=== PATIENT | female | born 1975 | race Caucasian/White ===

== ENCOUNTER 2020-07-26 10:16 | Outpatient (REF) | payer BC, SELFPAY ==
[2020-07-26 11:45] LABS: MANUAL DIFF FLAG NO
[2020-07-26 11:59] LABS: Basophils Percent Auto 0.5 % (0-2); Eosinophils Absolute Auto 0.3 X10*3/uL (0.0-0.4); Eosinophils Percent Auto 3.5 % (0-4); Hematocrit 43.3 % (37-47); Hemoglobin 14.3 g/dl (12.0-16.0); Imm Gran Abs Auto 0.04 X10*3/uL (0.00-0.03); Imm Gran Pct Auto 0.5 % (0.0-0.4); Lymphocytes Absolute Auto 2.2 X10*3/uL (1.2-4.9); Lymphocytes Percent Auto 28.4 % (20-40); Mean Corpuscular Hemoglobin 32.6 pg (27.0-33.0); Mean Corpuscular Volume 98.6 fL (80-98); Mean Platelet Volume 10.4 fL (9.4-12.3); Monocytes Absolute Auto 0.6 X10*3/uL (0.1-1.2); Neutrophils Absolute Auto 4.7 X10*3/uL (2.0-8.3); Neutrophils Percent Auto 60.1 % (45-73); Platelet Count 279 X10*3/uL (160-400); Red Blood Count 4.39 X10*6/uL (4.20-5.50); Red Cell Distribution Width 11.9 % (11.0-16.0); White Blood Count 7.8 X10*3/uL (4.8-10.8)
[2020-07-26 12:20] LABS: Alanine Aminotransferase 21 U/L (0-31); Albumin Level 4.7 g/dL (3.5-5.0); Alkaline Phosphatase 92 U/L (39-117); Aspartate Amino Transferase 17 U/L (5-31); Bilirubin Direct 0.2 mg/dL (0.0-0.5); Bilirubin Total 0.4 mg/dL (0.0-1.0); Cholesterol 194 mg/dL; HDL Cholesterol 71 mg/dL; LDL Cholesterol Calculated 110 mg/dl; Total Protein 7.3 g/dL (6.5-8.0); Triglycerides 66 mg/dL
[2020-07-26 12:45] LABS: Microalbumin Urine < 5.0 mg/L
[2020-07-26 12:46] LABS: Thyroid Stimulating Hormone 0.48 uIU/mL (0.32-4.0); Vitamin D 25-OH Total 39.3 ng/mL (>30)
[2020-07-26 13:19] LABS: Folate 14.4 ng/mL (> or = 4.0); Vitamin B12 950 pg/mL (200-900)
[2020-07-26 14:24] LABS: T4 Thyroxine 5.1 ug/dL (4.5-12.0)
== END 2020-07-26 10:17 | disposition home or self-care (01) ==
LOC: HO.LAB 10:16
PROVIDERS: PCP Internal Medicine; Visit Provider Internal Medicine
DX: E78.5 Hyperlipidemia, unspecified (principal); E10.65 Type 1 diabetes mellitus with hyperglycemia; E03.9 Hypothyroidism, unspecified; F43.10 Post-traumatic stress disorder, unspecified; G43.909 Migraine, unspecified, not intractable, without status migrainosus
CPT/HCPCS: 36415; 80061; 80076; 82043; 82306; 82607; 82746; 84436; 84443; 85025

== ENCOUNTER 2020-09-27 09:50 | Outpatient (REF) | payer OTHER, SELFPAY | END 2020-09-27 09:51 | disposition home or self-care (01) | LOC: HO.LAB 09:50 | PROVIDERS: Visit Provider Internal Medicine | DX: Z20.822 Contact with and (suspected) exposure to COVID-19 (principal) | CPT/HCPCS: 36415; C9803; U0003; U0005 ==

== ENCOUNTER 2020-12-27 09:52 | Outpatient (REF) | payer OTHER, SELFPAY ==
--- NOTE | ~2020-12-27 | MM_ITS ---
EXAMINATION: MM SCREENING DIGITAL BREAST TOMOSYNTHESIS, BILATERAL CLINICAL INFORMATION: Screening. Asymptomatic. Benign ultrasound-guided left breast biopsy 06/29/2017 (Benign breast tissue with fibrosis and patchy [id number]-[id number] active chronic inflammation). The lifetime risk of breast cancer based on the Tyrer-Cuzick Model is 8%. COMPARISON: Mammography: 06/29/2017, 06/19/2017, 10/17/2015, baseline. Ultrasound left breast 06/19/2017, ultrasound-guided biopsy left breast 06/29/2017. TECHNIQUE: Digital breast tomosynthesis is performed in both the craniocaudal and mediolateral oblique views along with computer-aided detection (CAD). Synthesized 2D images are generated from the tomosynthesis. FINDINGS: The breasts are heterogeneously dense, which may obscure small masses (ACR BI-RADS breast composition Category c). There are no significant masses, abnormal calcifications, or other abnormalities. Benign grouped coarse calcifications posterior 12:00 left breast consistent with degenerating fibroadenoma again noted as incidental finding. There is biopsy clip marker anterior upper outer left breast. No significant changes. MM/MM tomosynthesis screening BI IMPRESSION: No mammographic evidence of malignancy. ASSESSMENT: BI-RADS 2: Benign RECOMMENDATION: Routine annual mammography screening. This patient's information was entered into a reminder system with a target due date for their next mammogram.
== END 2020-12-27 09:53 | disposition home or self-care (01) ==
LOC: HO.MAMMO 09:52
PROVIDERS: Visit Provider Internal Medicine
DX: Z12.31 Encounter for screening mammogram for malignant neoplasm of breast (principal)
CPT/HCPCS: 77063; 77067

== ENCOUNTER 2021-06-27 13:03 | Outpatient (REF) | payer OTHER, SELFPAY ==
[2021-06-27 13:15] LABS: MANUAL DIFF FLAG NO
[2021-06-27 13:35] LABS: Basophils Absolute Auto 0.1 X10*3/uL (0.0-0.2); Basophils Percent Auto 0.7 % (0-2); Eosinophils Absolute Auto 0.3 X10*3/uL (0.0-0.4); Eosinophils Percent Auto 3.3 % (0-4); Hematocrit 40.5 % (37.0-47.0); Hemoglobin 14.3 g/dl (12.0-16.0); Imm Gran Abs Auto 0.05 X10*3/uL (0.00-0.03); Imm Gran Pct Auto 0.6 % (0.0-0.4); Lymphocytes Absolute Auto 1.8 X10*3/uL (1.2-4.9); Lymphocytes Percent Auto 20.9 % (20-40); Mean Corpuscular HGB Conc 35.3 g/dl (31.0-35.0); Mean Corpuscular Hemoglobin 33.6 pg (27.0-33.0); Mean Corpuscular Volume 95.3 fL (80.0-98.0); Mean Platelet Volume 9.7 fL (9.4-12.3); Monocytes Absolute Auto 0.6 X10*3/uL (0.1-1.2); Monocytes Percent Auto 6.9 % (2-11); Neutrophils Absolute Auto 5.81 x10*3/uL (2.0-8.3); Neutrophils Percent Auto 67.6 % (45-73); Platelet Count 320 X10*3/uL (160-400); Red Blood Count 4.25 X10*6/uL (4.20-5.50); Red Cell Distribution Width 12.5 % (11.0-16.0); White Blood Count 8.6 X10*3/uL (4.8-10.8)
[2021-06-27 14:08] LABS: Alanine Aminotransferase 23 U/L (0-31); Albumin Level 4.6 g/dL (3.5-5.0); Alkaline Phosphatase 128 U/L (39-117); Anion Gap 13 (12-20); Aspartate Amino Transferase 19 U/L (5-31); Bilirubin Total 0.6 mg/dL (0.0-1.0); Blood Urea Nitrogen 16 mg/dL (9-16); Calcium 9.3 mg/dL (8.4-10.2); Carbon Dioxide 26 mmol/L (22-29); Chloride 107 mmol/L (96-108); Cholesterol 159 mg/dL; Estimated Glomerular Filt Rate > 60; Glucose Random 46 mg/dL (60-115); HDL Cholesterol 67 mg/dL; LDL Cholesterol Calculated 73 mg/dl; Potassium 4.1 mmol/L (3.3-5.1); Sodium 142 mmol/L (135-145); Total Protein 7.2 g/dL (6.5-8.0); Triglycerides 95 mg/dL
[2021-06-27 14:28] LABS: Free T4 (Free Thyroxine) 0.92 ng/dL (0.71-1.85); Thyroid Stimulating Hormone 0.36 uIU/mL (0.32-4.0)
[2021-06-27 14:31] LABS: Folate 19.8 ng/mL (> or = 4.0); Vitamin B12 984 pg/mL (200-900)
== END 2021-06-27 13:04 | disposition home or self-care (01) ==
LOC: HO.LAB 13:03
PROVIDERS: PCP Internal Medicine; Visit Provider Internal Medicine
DX: E10.65 Type 1 diabetes mellitus with hyperglycemia (principal); E78.00 Pure hypercholesterolemia, unspecified; E66.9 Obesity, unspecified
CPT/HCPCS: 36415; 80053; 80061; 82306; 82607; 82746; 84439; 84443; 85025

== ENCOUNTER → 2021-08-01 14:48 | Outpatient (BNVA) | payer OTHER, SELFPAY | PROVIDERS: PCP Internal Medicine; Referring Provider Internal Medicine; Visit Provider Physician Assistant Surgical ==

== ENCOUNTER → 2021-08-26 07:56 | Outpatient (BNVA) | payer OTHER, SELFPAY | PROVIDERS: PCP Internal Medicine; Visit Provider Surgery ==

== ENCOUNTER → 2021-08-28 15:18 | Outpatient (BNVA) | payer OTHER, SELFPAY | PROVIDERS: PCP Internal Medicine; Referring Provider Internal Medicine; Visit Provider Physician Assistant Surgical ==

== ENCOUNTER 2021-08-28 15:30 | Outpatient (REF) | payer OTHER, SELFPAY ==
--- NOTE | ~2021-08-28 | XR_ITS ---
EXAMINATION: XR CHEST CLINICAL INFORMATION: Hypothyroidism COMPARISON: 08/13/2016 TECHNIQUE: 2 views of the chest were obtained. FINDINGS: Cardiomediastinal silhouette is normal. The lungs are clear without consolidation, pleural effusion or pneumothorax. No acute osseous abnormalities. XR/XR chest 2V IMPRESSION: No acute cardiopulmonary process.
--- NOTE | 2021-08-28 15:37 | ECG_ITS ---
Test Reason : obesity Blood Pressure : / mmHG Vent. Rate : 060 BPM Atrial Rate : 060 BPM P-R Int : 174 ms QRS Dur : 090 ms QT Int : 392 ms P-R-T Axes : 052 011 027 degrees QTc Int : 392 ms Normal sinus rhythm Normal ECG When compared with ECG of 07-AUG-2011 15:31, No significant change was found Referred By: Rubén Sexton Electronically Signed By:JT CHOI MD
[2021-08-28 15:54] LABS: MANUAL DIFF FLAG NO
[2021-08-28 16:14] LABS: Basophils Absolute Auto 0.1 X10*3/uL (0.0-0.2); Basophils Percent Auto 0.8 % (0-2); Eosinophils Absolute Auto 0.4 X10*3/uL (0.0-0.4); Hemoglobin 13.4 g/dl (12.0-16.0); Imm Gran Abs Auto 0.02 X10*3/uL (0.00-0.03); Imm Gran Pct Auto 0.3 % (0.0-0.4); Lymphocytes Absolute Auto 1.7 X10*3/uL (1.2-4.9); Lymphocytes Percent Auto 26.7 % (20-40); Mean Corpuscular HGB Conc 35.3 g/dl (31.0-35.0); Mean Corpuscular Hemoglobin 33.5 pg (27.0-33.0); Mean Platelet Volume 10.1 fL (9.4-12.3); Monocytes Absolute Auto 0.4 X10*3/uL (0.1-1.2); Monocytes Percent Auto 6.1 % (2-11); Neutrophils Absolute Auto 3.8 x10*3/uL (2.0-8.3); Neutrophils Percent Auto 60.1 % (45-73); Platelet Count 242 X10*3/uL (160-400); Red Cell Distribution Width 11.9 % (11.0-16.0); White Blood Count 6.4 X10*3/uL (4.8-10.8)
[2021-08-28 16:30] LABS: Alanine Aminotransferase 29 U/L (0-31); Albumin Level 4.4 g/dL (3.5-5.0); Alkaline Phosphatase 107 U/L (39-117); Anion Gap 10 (12-20); Aspartate Amino Transferase 21 U/L (5-31); Bilirubin Total 0.4 mg/dL (0.0-1.0); Blood Urea Nitrogen 17 mg/dL (9-16); C Reactive Protein 0.46 mg/dL (< or = 0.50); Carbon Dioxide 25 mmol/L (22-29); Chloride 109 mmol/L (96-108); Cholesterol 181 mg/dL; Estimated Glomerular Filt Rate 60; Glucose Random 118 mg/dL (60-115); HDL Cholesterol 72 mg/dL; Iron 91 mcg/dL (30-160); LDL Cholesterol Calculated 97 mg/dl; Percent Iron Saturation 35 % (15-50); Potassium 3.8 mmol/L (3.3-5.1); Sodium 140 mmol/L (135-145); Total Iron Binding Capacity 258 mcg/dL (228-428); Total Protein 6.6 g/dL (6.5-8.0); Triglycerides 63 mg/dL; Unsaturated Iron Binding 167 ug/dL
[2021-08-28 16:45] LABS: Estimated Average Glucose 148 mg/dL; Hemoglobin A1c % 6.8 %
[2021-08-28 16:54] LABS: Ferritin 69 ng/mL (10-250); TSH reflex Free T4 24.43 uIU/mL (0.32-4.0); Vitamin D 25-OH Total 42.1 ng/mL (>30)
[2021-08-28 17:01] LABS: Folate > 20.0 ng/mL (> or = 4.0); Vitamin B12 875 pg/mL (200-900)
[2021-08-28 18:31] LABS: Insulin 18 uU/mL (2-29)
[2021-08-29 12:26] LABS: Calcium (PTHI) 8.8 mg/dL (8.6-10.2); PTHI 43 pg/mL (14-64)
[2021-08-29 15:34] LABS: H Pylori Breath Test Negative (Negative)
[2021-09-01 16:52] LABS: Zinc 93 mcg/dL (60-130)
[2021-09-02 05:52] LABS: Vitamin B1 17 nmol/L (8-30)
[2021-09-03 10:22] LABS: Vitamin A 64 mcg/dL (38-98)
== END 2021-08-28 15:31 | disposition home or self-care (01) ==
LOC: HO.XRAY 15:30
PROVIDERS: PCP Internal Medicine; Visit Provider Surgery
DX: E03.9 Hypothyroidism, unspecified (principal); E10.65 Type 1 diabetes mellitus with hyperglycemia; E66.9 Obesity, unspecified; Z68.35 Body mass index [BMI] 35.0-35.9, adult; E78.00 Pure hypercholesterolemia, unspecified; F43.10 Post-traumatic stress disorder, unspecified; K42.9 Umbilical hernia without obstruction or gangrene
CPT/HCPCS: 36415; 71046; 80053; 80061; 82306; 82607; 82728; 82746; 83013; 83036; 83525; 83540; 83970; 84425; 84439; 84443; 84590; 84630; 85025; 86140; 93005

== ENCOUNTER → 2021-09-25 08:09 | Outpatient (BNVA) | payer OTHER, SELFPAY | PROVIDERS: PCP Internal Medicine; Visit Provider Surgery ==

== ENCOUNTER → 2021-09-27 08:00 | Outpatient (BNVA) | payer OTHER, SELFPAY | PROVIDERS: PCP Internal Medicine; Visit Provider Dietitian, Registered | DX: E66.9 Obesity, unspecified (principal); E10.65 Type 1 diabetes mellitus with hyperglycemia | CPT/HCPCS: 97802 ==

== ENCOUNTER 2021-10-16 08:08 | Outpatient (REF) | payer OTHER, SELFPAY ==
--- NOTE | ~2021-10-16 | US_ITS ---
EXAMINATION: US COMPLETE ABDOMEN WITH LIVER ELASTOGRAPHY CLINICAL INFORMATION: Obesity COMPARISON: None. TECHNIQUE: Real-time imaging of the abdominal viscera. Noninvasive ultrasound liver fibrosis assessment is performed using Trudy ElastPQ point quantification shear wave elastography (2D-SWE) with a C5-2 MHz transducer. Multiple elastography samples are obtained. FINDINGS: PANCREAS: Normal. ABDOMINAL AORTA: The proximal, middle, and distal aortic segments are normal in caliber. INFERIOR VENA CAVA: Visualized portions are normal. LIVER: Liver echotexture is slightly increased. The liver demonstrates normal size and contour. No focal lesion or intrahepatic biliary duct dilatation. The right lobe measures 17 cm in length. The left lobe measures 11 cm in length. Portal flow is normal/hepatopedal. Shear wave liver elastography median stiffness is 1.3 m/s (reference: normal median stiffness is 1.3 m/s or less). IQR/median stiffness to assess sampling precision is 0.11 (reference: good quality data set is IQR/median stiffness of 0.15 or less). GALLBLADDER: Normal. The gallbladder is physiologically distended without evidence of stones, sludge, polyps, wall thickening or pericholecystic fluid. COMMON BILE DUCT: Normal in caliber measuring 0.6 cm in diameter. RIGHT KIDNEY: Normal. No hydronephrosis. No renal calculi or focal parenchymal lesions. The kidney measures 11 cm in maximum dimension. LEFT KIDNEY: Normal. No hydronephrosis. No renal calculi or focal parenchymal lesions. The kidney measures 10 cm in maximum dimension. SPLEEN: Normal. The spleen measures 11 cm in maximum dimension. FREE FLUID: None. US/US abdomen comp w elastography IMPRESSION: 1. Impression: Slightly echogenic liver probably representing fatty infiltration. 2. Liver elastography: Adequate liver sampling. Normal liver stiffness. REFERENCE: Society of Radiologists in Ultrasound Liver Stiffness Thresholds (2020): LIVER STIFFNESS THRESHOLDS: *Liver Stiffness equal or less than 1.3 m/s: High probability of being normal. *Liver Stiffness less than 1.7 m/s: In the absence of other known clinical signs, rules out compensated advanced chronic liver disease. *Liver Stiffness 1.7-2.1 m/s: Suggestive of compensated advanced chronic liver disease but need further test for confirmation. *Liver Stiffness over 2.1 m/s: Rules in compensated advanced chronic liver disease. *Liver Stiffness over 2.4 m/s: Suggestive of clinically significant portal hypertension. QUALITY OF DATA SET: *IQR/Median value equal or less than 0.15 implies a quality data set. *IQR/Median value over 0.15 implies a poor quality data set. SIGNIFICANT CHANGE FROM PRIOR EXAM: Significant change if liver stiffness measurement is 10% or greater from prior exam. OTHER CONSIDERATIONS: The stage of liver fibrosis may be overestimated in the setting of acute hepatitis, liver inflammation, elevated liver function tests, hepatic vascular congestion, obstructive cholestasis, non-fasting state, and infiltrative diseases such as amyloidosis and lymphoma. In some patients with NAFLD, the liver stiffness thresholds for compensated advanced chronic liver disease may be lower. In causes other than viral hepatitis and NAFLD, liver stiffness thresholds are not well established.
--- NOTE | ~2021-10-16 | FL_ITS ---
EXAMINATION: FL FLUOROSCOPY UPPER GI WITH AIR CLINICAL INFORMATION: Hypothyroidism. COMPARISON: None TECHNIQUE: Routine upper GI air-contrast study was performed. FINDINGS: Following oral administration of thick barium and effervescent granules, there is normal propagation of the bolus from the oral cavity through the pharynx, esophagus into the stomach without any evidence of obstruction, narrowing or stricture. On placing the patient supine and prone, the course, caliber and peristalsis of the stomach, duodenal bulb and the sweep are normal. The mucosal pattern of the stomach and the duodenal bulb is normal. FLUOROSCOPY TIME: 1.8 minutes DOSE AREA PRODUCT: 28.624 uGy-m2 (microgray-meter squared) FL/FL upper GI w air IMPRESSION: Unremarkable upper GI air-contrast study.
== END 2021-10-16 08:09 | disposition home or self-care (01) ==
LOC: HO.US 08:08
PROVIDERS: PCP Internal Medicine; Visit Provider Surgery
DX: E03.9 Hypothyroidism, unspecified (principal); E10.65 Type 1 diabetes mellitus with hyperglycemia; E78.00 Pure hypercholesterolemia, unspecified; F43.10 Post-traumatic stress disorder, unspecified; K42.9 Umbilical hernia without obstruction or gangrene; E66.9 Obesity, unspecified; Z68.35 Body mass index [BMI] 35.0-35.9, adult
CPT/HCPCS: 74246; 76705; 76981

== ENCOUNTER → 2021-10-21 08:14 | Outpatient (BNVA) | payer OTHER, SELFPAY | PROVIDERS: PCP Internal Medicine; Referring Provider Surgery; Visit Provider Dietitian, Registered | DX: E66.9 Obesity, unspecified (principal); Z68.34 Body mass index [BMI] 34.0-34.9, adult; E10.65 Type 1 diabetes mellitus with hyperglycemia; Z71.3 Dietary counseling and surveillance | CPT/HCPCS: 97803 ==

== ENCOUNTER → 2021-10-30 08:16 | Outpatient (BNVA) | payer OTHER, SELFPAY | PROVIDERS: PCP Internal Medicine; Visit Provider Surgery ==

== ENCOUNTER → 2021-11-01 08:14 | Outpatient (BNVA) | payer OTHER, SELFPAY | PROVIDERS: PCP Internal Medicine; Referring Provider Surgery; Visit Provider Dietitian, Registered | DX: Z68.34 Body mass index [BMI] 34.0-34.9, adult (principal) | CPT/HCPCS: 97803 ==

== ENCOUNTER → 2021-11-29 08:15 | Outpatient (BNVA) | payer OTHER, SELFPAY | PROVIDERS: PCP Internal Medicine; Visit Provider Surgery | DX: Z13.89 Encounter for screening for other disorder (principal) ==

== ENCOUNTER → 2022-01-06 08:16 | Outpatient (BNVA) | payer OTHER, SELFPAY | PROVIDERS: PCP Internal Medicine; Visit Provider Surgery | DX: Z13.89 Encounter for screening for other disorder (principal) ==

== ENCOUNTER 2022-10-30 05:56 | Outpatient (REF) | payer OTHER, SELFPAY ==
--- NOTE | ~2022-10-30 | XR_ITS ---
EXAMINATION: XR CHEST CLINICAL INFORMATION: R06.02 - Shortness of breath COMPARISON: Chest radiographs 08/28/2021, 08/13/2016 TECHNIQUE: 2 views of the chest were obtained. FINDINGS: The lungs are clear. No infiltrate or effusion. The costophrenic sulci are well-defined. No hyperinflation. The hilar and mediastinal contours are similar to prior exams. Heart size normal. Vascularity normal. No acute bony abnormality. XR/XR chest 2V IMPRESSION: No acute intrathoracic disease.
--- NOTE | ~2022-10-30 | MM_ITS ---
EXAMINATION: MM SCREENING DIGITAL BREAST TOMOSYNTHESIS, BILATERAL CLINICAL INFORMATION: Screening. Asymptomatic. The lifetime risk of breast cancer based on the Tyrer-Cuzick Model is 7%. COMPARISON: Mammography: December 27, 2020 and studies dating back to October 17, 2015 TECHNIQUE: Digital breast tomosynthesis is performed in both the craniocaudal and mediolateral oblique views along with computer-aided detection (CAD). Synthesized 2D images are generated from the tomosynthesis. FINDINGS: The breasts are heterogeneously dense, which may obscure small masses (ACR BI-RADS breast composition Category c). There are no significant masses, abnormal calcifications, or other abnormalities. MM/MM tomosynthesis screening BI IMPRESSION: No significant changes ASSESSMENT: BI-RADS 1: Negative RECOMMENDATION: Routine annual mammography screening. This patient's information was entered into a reminder system with a target due date for their next mammogram.
[2022-10-30 06:13] LABS: MANUAL DIFF FLAG NO
[2022-10-30 07:39] LABS: Basophils Absolute Auto 0.1 X10*3/uL (0.0-0.2); Basophils Percent Auto 0.8 % (0-2); Eosinophils Absolute Auto 0.2 X10*3/uL (0.0-0.4); Eosinophils Percent Auto 3.2 % (0-4); Hematocrit 37.2 % (37.0-47.0); Hemoglobin 12.5 g/dl (12.0-16.0); Imm Gran Abs Auto 0.04 X10*3/uL (0.00-0.03); Imm Gran Pct Auto 0.6 % (0.0-0.4); Lymphocytes Absolute Auto 1.7 X10*3/uL (1.2-4.9); Lymphocytes Percent Auto 24.2 % (20-40); Mean Corpuscular HGB Conc 33.6 g/dl (31.0-35.0); Mean Corpuscular Hemoglobin 30.7 pg (27.0-33.0); Mean Corpuscular Volume 91.4 fL (80.0-98.0); Mean Platelet Volume 10.3 fL (9.4-12.3); Monocytes Absolute Auto 0.6 X10*3/uL (0.1-1.2); Monocytes Percent Auto 8.3 % (2-11); Neutrophils Absolute Auto 4.5 x10*3/uL (2.0-8.3); Neutrophils Percent Auto 62.9 % (45-73); Platelet Count 259 X10*3/uL (160-400); Red Blood Count 4.07 X10*6/uL (4.20-5.50); Red Cell Distribution Width 14.5 % (11.0-16.0); White Blood Count 7.2 X10*3/uL (4.8-10.8)
[2022-10-30 08:15] LABS: Alanine Aminotransferase 22 U/L (0-31); Albumin Level 4.5 g/dL (3.5-5.0); Alkaline Phosphatase 110 U/L (39-117); Anion Gap 13 (12-20); Aspartate Amino Transferase 24 U/L (5-31); Bilirubin Total 0.3 mg/dL (0.0-1.0); Blood Urea Nitrogen 14 mg/dL (9-16); Calcium 8.9 mg/dL (8.4-10.2); Carbon Dioxide 24 mmol/L (22-29); Chloride 107 mmol/L (96-108); Cholesterol 171 mg/dL; Estimated Glomerular Filt Rate 52; Glucose Random 167 mg/dL (60-115); HDL Cholesterol 61 mg/dL; LDL Cholesterol Calculated 97 mg/dl; Potassium 4.2 mmol/L (3.3-5.1); Sodium 140 mmol/L (135-145); Total Protein 6.8 g/dL (6.5-8.0); Triglycerides 67 mg/dL
[2022-10-30 08:48] LABS: Folate 5.4 ng/mL (> or = 4.0); Free T4 (Free Thyroxine) 1.05 ng/dL (0.71-1.85); Thyroid Stimulating Hormone 9.68 uIU/mL (0.32-4.0); Vitamin B12 655 pg/mL (200-900); Vitamin D 25-OH Total 23.9 ng/mL (>30)
[2022-10-30 09:03] LABS: Creatinine Urine 43.31 mg/dL; Microalbumin Urine < 5.0 mg/L
[2022-10-30 09:37] LABS: Estimated Average Glucose 183 mg/dL
[2022-10-31 23:13] LABS: Triiodothyronine T3 Total 81 ng/dL (76-181)
== END 2022-10-30 05:57 | disposition home or self-care (01) ==
LOC: HO.MAMMO 05:56
PROVIDERS: Surgery; PCP Internal Medicine; Visit Provider Internal Medicine
DX: E78.00 Pure hypercholesterolemia, unspecified (principal); E10.65 Type 1 diabetes mellitus with hyperglycemia; R06.02 Shortness of breath; Z12.31 Encounter for screening mammogram for malignant neoplasm of breast; E55.9 Vitamin D deficiency, unspecified
CPT/HCPCS: 36415; 71046; 77063; 77067; 80053; 80061; 82043; 82306; 82607; 82746; 83036; 84439; 84443; 84480; 85025

== ENCOUNTER 2022-11-25 08:02 | Outpatient (REF) | payer OTHER, SELFPAY ==
--- NOTE | 2022-11-25 09:52 | CA_ITS ---
Acquisition Time: 2022-11-25 09:59:34 Total Exercise Time: 00:03:47 Test Indications: Dyspnea Medications: SEE H Protocol: BOB Max HR: 142 BPM 83% of Pred: 171 BPM Max BP: 122/072 mmHG Max Work Load: 5.5 METS Exercise stress test exercise 3 min 47 sec of Brucwe protocol achieving 83% MPHR, with severe SOB, no chest discomfort, with rare PVC, with blunted blood pressure response to exercise based on blood pressures taken by MA, without EKG changes at achieved workload. In recovery breathing normalized. Test reviewed with Dr. Rodriguez. Referred By: Bravo Carey Overread By: TRINIDAD RODRIGUEZ
--- NOTE | 2022-11-25 11:56 | PFT_ITS ---
FLOWS: 1. FEV1 115% of predicted at 3.02 L. 2. FVC 104% of predicted at 3.44 L. 3. FEV1 to FVC ratio of 0.88. 4. No bronchodilator response. LUNG VOLUMES: 1. Total lung capacity 101% of predicted at 4.83 L. 2. Residual volume 86% of predicted at 1.45 L. 3. Slow vital capacity 110% of predicted at 3.38 L. 4. Expiratory reserve volume 71% of predicted at 0.69 L. 5. Diffusion capacity is normal. IMPRESSION: No obstructive or restrictive ventilatory defect. No bronchodilator response. Essentially normal pulmonary function test. MD SHERRI Vanessa/MODL / [phone]
== END 2022-11-25 08:03 | disposition home or self-care (01) ==
LOC: HO.RESP 08:02
PROVIDERS: PCP Internal Medicine; Visit Provider Internal Medicine
DX: R06.02 Shortness of breath (principal)
CPT/HCPCS: 93017; 94060; 94727; 94729

== ENCOUNTER → 2022-12-15 07:16 | Outpatient (REF) | payer OTHER, SELFPAY ==
--- NOTE | 2022-12-15 07:20 | CA_ITS ---
Transthoracic Echocardiogram Patient (Last, First, Middle): Amy Lee, Gender: Female Date of : 1975 Age: 47 Procedure Date: 12/15/2022 Procedure Type: Transthoracic Echocardiogram Location: OP Height: 157.48 cm Weight: 74.39 kg BSA: 1.76 m2 Heart Rate: bpm BP: 126 / 80 mmHg Dental Receptionist: Referring MD: Bravo Carey MD Symptoms: R06.02 - Shortness of breath Study Quality: Good ECG Rhythm: Sinus Conclusions: - The left ventricular systolic function is normal. The calculated ejection fraction is 70% by biplane method. - No obvious valvular pathology seen on this study. Findings Left Ventricle Normal left ventricular cavity size. There is mildly increased left ventricular wall thickness. The left ventricular systolic function is normal. The calculated ejection fraction is 70% by biplane method. There is no evidence of regional wall motion abnormalities. Diastolic function is normal for age. LV peak GLS -21.4%. Right Ventricle Normal right ventricular cavity size and systolic function. Atria Both atria are normal in size. Aortic Valve There is a normal trileaflet aortic valve. There is no aortic valve stenosis. There is no aortic valve regurgitation. Mitral Valve The mitral valve appears normal. There is trace mitral valve regurgitation. There is no mitral valve stenosis. Pulmonic Valve The pulmonic valve is likely normal. Tricuspid Valve There is trace tricuspid valve regurgitation. There is no evidence of pulmonary hypertension. Great Vessels The asc aorta is normal in size. Venous The inferior vena cava is normal in size and collapses greater than 50% with inspiration. Pericardium/Pleural There is no evidence of pericardial effusion. Prior Study Comparison No prior study available for comparison. Recommendations, Care & Conclusions No obvious valvular pathology seen on this study. Measurements 2D Linear Measurements IVSd: 1.15 0.6-0.9/0.6-1.0 cm LVIDd: 3.89 3.9-5.3/4.2-5.9 cm LVIDd Index: 2.21 2.4-3.2/2.2-3.1 cm/m2 LVIDs: 2.36 2.0-3.6 cm LVPWd: 1.10 0.7-1.1 cm Ao Root: 2.70 2.1-3.5 cm LA Diam: 3.00 2.7-3.8/3.0-4.0 cm LAIDs Index: 1.70 1.5-2.3 cm/m2 LV Mass: 179.52 67-162/88-224 g LV Mass Index: 102.00 43-95/49-115 g/m2 LVOT Diam: 1.90 3.0+(-)1.3 cm 2D Systolic Function EF 4C: 63.00 >55% EF 2C: 74.30 >55% EF BiP: 70.10 >55% Mitral Valve MV Pk E: 0.86 MV PK A: 0.69 MV Decel Time: 204.00 E/A: 1.20 E'Lateral: 10.10 E'Medial: 9.25 E/E' Med: 9.30 E/E' Lat: 8.50 PHT: 60.00 MVA PHT: 3.67 Decel [place]: 4.23 Aortic Valve AoV Pk Robert: 1.76 AoV Mn Robert: 1.09 AoV VTI: 0.45 AoV Pk Grad: 12.00 Aov Mn Grad: 6.00 OSMEL Cont.VTI: 1.69 LVOT LVOT Pk Robert: 1.05 LVOT Mn Robert: 0.67 LVOT VTI: 0.27 LVOT Pk Grad: 4.00 LVOT Mn Grad: 2.00 LVOT Diam: 1.90 LVOT Area: 2.84 Diastolic Function MV Pk E: 0.86 MV Pk A: 0.69 E/A: 1.20 E'Medial: 9.25 E/E' Med: 9.30 E' Laterial: 10.10 E/E' Lat: 8.50 Right Ventricle TAPSE (mm): 30.00 TVS' Robert: 12.00 Tricuspid Valve TR Pk Robert: 2.07 TR Pk Grad: 17.00 RA Press: 3.00 RVSP: 20.00 Great Vessels Aorta Ao Root-2D: 2.70 2.0-3.7 cm Ao Asc: 3.20 2.1-3.4 cm Pulmonary Valve PV Pk Robert: 0.92 Peak PV Grad: 3.00 Updated in Other Vendor System with Status of Final Dustin Willams MD electronically signed on 12/15/2022 12:23:09 PM with status of Final
== END ==
LOC: HO.CARD 07:16
PROVIDERS: Visit Provider Internal Medicine
DX: R06.02 Shortness of breath (principal)
CPT/HCPCS: 93306; 93356

== ENCOUNTER 2023-02-12 09:52 | Outpatient (REF) | payer OTHER, SELFPAY ==
[2023-02-12 12:30] LABS: Creatinine Urine 79.22 mg/dL
[2023-02-12 12:35] LABS: Free T4 (Free Thyroxine) 0.91 ng/dL (0.71-1.85); Thyroid Stimulating Hormone 29.92 uIU/mL (0.32-4.0)
== END 2023-02-12 09:53 | disposition home or self-care (01) ==
LOC: HO.LAB 09:52
PROVIDERS: PCP Internal Medicine; Visit Provider Internal Medicine
DX: E03.9 Hypothyroidism, unspecified (principal); E10.65 Type 1 diabetes mellitus with hyperglycemia
CPT/HCPCS: 36415; 84439; 84443

== ENCOUNTER 2023-02-13 14:27 | Outpatient (REF) | payer OTHER, SELFPAY ==
--- NOTE | 2023-02-13 16:00 | MHC.AU.HA3 ---
Hearing Instrument Follow-Up- Binaural Date of Visit: 02/13/23 Follow-Up Summary: Patient seen for hearing test. See report for full details. Conductive loss bilaterally at 250 and 1000 Hz. Eustachian tube dysfunction left. Recommendations: Recommendations (Other): Follow up with PCP for ENT consideration to discuss sensation of pressure bilaterally, eustachian tube dysfunction left, and possible contributing factors of snoring, post nasal drip, dental implants. Diagnosis Code(s): Primary Diagnosis: H91.91 Unspecified Hearing Loss, Right Ear Secondary Diagnosis: H90.0 Conductive Hearing Loss, Bilateral Signature: Provider: Jacinda Hernandez, FAAA
== END 2023-02-13 14:28 | disposition home or self-care (01) ==
LOC: HO.SH 14:27
PROVIDERS: Visit Provider Internal Medicine
DX: Z01.118 Encounter for examination of ears and hearing with other abnormal findings (principal); H91.91 Unspecified hearing loss, right ear
CPT/HCPCS: 92557; 92570; 92588; 92700

== ENCOUNTER 2023-06-11 07:57 | Outpatient (REF) | payer OTHER, SELFPAY ==
[2023-06-11 08:10] LABS: MANUAL DIFF FLAG NO
[2023-06-11 08:17] LABS: Basophils Percent Auto 0.5 % (0-2); Eosinophils Absolute Auto 0.1 X10*3/uL (0.0-0.4); Eosinophils Percent Auto 1.6 % (0-4); Hematocrit 41.7 % (37.0-47.0); Hemoglobin 14.5 g/dl (12.0-16.0); Imm Gran Abs Auto 0.01 X10*3/uL (0.00-0.03); Imm Gran Pct Auto 0.2 % (0.0-0.4); Lymphocytes Absolute Auto 1.8 X10*3/uL (1.2-4.9); Lymphocytes Percent Auto 29.6 % (20-40); Mean Corpuscular HGB Conc 34.8 g/dl (31.0-35.0); Mean Corpuscular Volume 89.3 fL (80.0-98.0); Mean Platelet Volume 9.9 fL (9.4-12.3); Monocytes Absolute Auto 0.4 X10*3/uL (0.1-1.2); Neutrophils Absolute Auto 3.8 x10*3/uL (2.0-8.3); Neutrophils Percent Auto 61.1 % (45-73); Platelet Count 272 X10*3/uL (160-400); Red Blood Count 4.67 X10*6/uL (4.20-5.50); Red Cell Distribution Width 11.9 % (11.0-16.0); White Blood Count 6.2 X10*3/uL (4.8-10.8)
[2023-06-11 08:41] LABS: Carbamazepine Tegretol 8.1 mcg/mL (5.0-12.0)
[2023-06-11 08:42] LABS: Alanine Aminotransferase 32 U/L (0-31); Albumin Level 4.2 g/dL (3.5-5.0); Alkaline Phosphatase 87 U/L (39-117); Anion Gap 14 (12-20); Aspartate Amino Transferase 34 U/L (5-31); Bilirubin Total 0.3 mg/dL (0.0-1.0); Blood Urea Nitrogen 11 mg/dL (9-16); Calcium 9.3 mg/dL (8.4-10.2); Carbon Dioxide 23 mmol/L (22-29); Chloride 107 mmol/L (96-108); Estimated Glomerular Filt Rate > 60; Glucose Random 174 mg/dL (60-115); Potassium 3.7 mmol/L (3.3-5.1); Sodium 140 mmol/L (135-145); Total Protein 6.7 g/dL (6.5-8.0)
[2023-06-11 10:46] LABS: Free T4 (Free Thyroxine) 1.06 ng/dL (0.71-1.85); Thyroid Stimulating Hormone 0.03 uIU/mL (0.32-4.0)
== END 2023-06-11 07:58 | disposition home or self-care (01) ==
LOC: HO.LAB 07:57
PROVIDERS: PCP Internal Medicine; Referring Provider Internal Medicine; Visit Provider Clinical Nurse Specialist Psychiatric/Mental Health
DX: E03.9 Hypothyroidism, unspecified (principal); F43.10 Post-traumatic stress disorder, unspecified; Z79.899 Other long term (current) drug therapy
CPT/HCPCS: 36415; 80053; 80156; 84439; 84443; 85025

== ENCOUNTER 2023-06-11 08:14 | Outpatient (AMB) | payer OTHER, SELFPAY ==
--- NOTE | 2023-06-11 08:19 | MHC.PC.OV ---
Vital Signs 06/11/23 08:20 Height 5 ft 2 in Weight 160 lb BMI 29.3 BP 126/70 Blood Pressure Location Lt brachial Position Sitting Pulse 77 Pulse Source Pulse Oximeter Pulse Oximetry (%) 97 Oxygen Delivery Method Room Air Intake Visit Reasons: 3mth f/u Intake Note: Patient here for a 3 month follow up Impregnator Electrolytic Capacitors Required: No Accompanied by: Self / Same As Patient Allergies simvastatin Allergy (Severe, Verified 06/11/23 08:22) Muscle cramps pravastatin Allergy (Unknown, Verified 06/11/23 08:22) myalgia Medication List - Last Reconciled 06/11/23 by Bravo Carey, albuterol sulfate 90 mcg/actuation (Ventolin HFA) 2 puffs inhalation Q6H PRN blood sugar diagnostic ([place] [employer] Verio test strips) As directed check the BS TID buspirone 30 mg PO BEDTIME carbamazepine (Tegretol) 400 mg PO BEDTIME chlorhexidine gluconate 0.12% mL PO DIRECTED clobetasol 0.05% 1 appl topical BID 2 weeks clonazepam 2 mg PO QAM clonazepam 4 mg PO BEDTIME dextroamphetamine-amphetamine 10 mg 1 tab PO TID dextroamphetamine-amphetamine 20 mg 1 tab PO TID dextroamphetamine-amphetamine 20 mg ER (Adderall XR) 20 mg PO DAILY dextroamphetamine-amphetamine 30 mg 1 tab PO TID flash glucose scanning reader ([place] acquired by [employer]/Bands[employer]Style Kilo 14 Day [place]) As directed flash glucose sensor (FreeStyle Kilo 14 Day Sensor kit) As directed insulin glargine (Basaglar KwikPen U-100 Insulin) 30 units (0.3 mL) subcut QAM insulin lispro (Humalog KwikPen (U-100) Insulin) 6 - 10 units (0.06 - 0.1 mL) subcut TID levothyroxine take once a day except for thursday take 2 tabs orally bedtime; melatonin 3 mg PO BEDTIME PRN naratriptan 2.5 mg PO Q4H PRN 90 days pen needle, diabetic (BD Ultra-Fine Mini Pen Needle) 1 ea subcut DAILY 90 days quetiapine (Seroquel) 25 mg PO BEDTIME rosuvastatin 5 mg PO BEDTIME topiramate 300 mg PO BEDTIME triamcinolone acetonide 0.5% 1 appl topical BID 14 days valacyclovir 500 mg PO BID 3 days Tobacco use date assessed: 10/30/22 Dental Screening Dental Screen Date: 06/11/23 Did you have a dental visit in the last 12 months?: Yes Did you have a dental problem in the last 6 months where you did not have access to dental care?: No Was dental information given to patient?: Patient has dentist HPI 3mth f/u HPI Details 48-year-old overweight female with diabetes mellitus type 1 bipolar disorder hypothyroidism hypercholesterolemia last seen in January 2023. admits to depression due to boyfriend left him. has not been eating good- has the psychiatrist and counselling and on med. patient know to get back [facility] Medical History ADHD (attention deficit hyperactivity disorder) Anxiety and depression Bipolar 1 disorder Former smoker History of incarceration Hx MRSA infection Hx of Huitron's palsy Hypercholesterolemia Hypothyroid Insomnia Migraine Positive RPR test PTSD (post-traumatic stress disorder) Recovering alcoholic Thyroid nodule Type 1 diabetes mellitus with hyperglycemia Surgical History Hx of bilateral cataract extraction History of dental surgery History of tonsillectomy History of eye surgery History of section Family History Father Alcoholism Cirrhosis Emphysema lung Mother Hemochromatosis Maternal Aunt Bone cancer Paternal Aunt Renal cell cancer Brother In good health Alcohol abuse Son In good health Other FHx: mental illness Substance abuse Social History Housing: Apartment Are you a primary animal daycare provider to a significant other at home: No Do you presently have visiting nurse or other home services: No Alcohol intake: never Patient Tobacco Use Status: Former Tobacco user Quit Date: 2007 Tobacco use type: Cigarette Years Smoked: quit January 2011 e-Cigarette/Vaping Use: Never Used Second Hand Smoke Exposure: No service: No Current occupational status: employed Current occupational exposures/hazards: No Cognitive needs: No Hearing needs: No Vision needs: Yes Questionnaire Thrive Questionnaire Date Thrive assessed: 10/30/22 DONNELL-7 AMB Questionnaire DONNELL-7 Date DONNELL - 7 assessed: 10/30/22 Source: Developed by Holley Michael B.W. Jamin, Ryan Mariscal and colleagues, with an educational flora from [employer] Physical exam (Primary Care) Vital Signs: Last Vital Signs Pulse 77 06/11/23 08:20 BP 126/70 06/11/23 08:20 Pulse Ox 97 06/11/23 08:20 Oxygen Delivery Method Room Air 06/11/23 08:20 BMI result Body Mass Index 29.3 Tobacco/Smoking Status: Tobacco use Status Tobacco use date assessed 10/30/22 06/11/23 08:23 Patient Tobacco Use Status Former Tobacco user 06/11/23 08:23 Tobacco use type Cigarette 06/11/23 08:23 e-Cigarette/Vaping Use Never Used 06/11/23 08:23 Thrive Assessment: Date of Thrive Assessment Date Thrive assessed 10/30/22 06/11/23 08:23 Const General: alert; No acute distress Eyes Conjunctivae: conjunctivae normal Resp Auscultation: clear to auscultation bilaterally Cardio Rate: regular rate Rhythm: regular rhythm GI Inspection: Yes normal to inspection Extrem General: Yes normal to inspection and No edema Office Procedures Flu Questionnaire Does the patient have a severe egg allergy?: No Results AMB Hemoglobin A1c AMB Hemoglobin A1c 8.2 % Last Edit by MARINA Gutierrez on 06/11/23 08:28 Immunizations flu vacc [id number] 6mos up(PF) 60 mcg(15 mcgx4)/0.5 mL IM syringe Performing Provider: Bravo Carey MD [facility] Documented (not given) by: MARINA Gutierrez on 06/11/23 08:23 Reason Not Given: Patient Refused Results Reviewed Results Reviewed: Laboratory Last Values Hgb A1c (Clinic) 8.2 % (4.0-6.0) H 06/11/23 08:27 Assessment and Plan Assessment & Plan (1) Type 1 diabetes mellitus with hyperglycemia: Comment: Dr. niranjan Cordova Code(s): E10.65 - Type 1 diabetes mellitus with hyperglycemia Plan: Decrease the amount of carbohydrate intake, pasta, bread, rice and potatoes are all sugar and that is aside from all the sweet stuff, remember that fruits are good but they are Sweet also. Hemoglobin A1c goal of less than 6.5 patient is presently taking Basaglar and Humalog (2) Hypothyroid: Code(s): E03.9 - Hypothyroidism, unspecified Qualifiers: Hypothyroidism type: acquired Qualified Code(s): E03.9 - Hypothyroidism, unspecified Plan: Continue with thyroid medication awaiting results the blood work (3) Hypercholesterolemia: Code(s): E78.00 - Pure hypercholesterolemia, unspecified Plan: Avoid fried foods, chicken skin, eggs, butter margarine, pastries and meat. Be it pork or beef they have a lot of cholesterol LDL goal of less than 100 and triglyceride of less than 150 on rosuvastatin (4) Bipolar 1 disorder: Comment: counselling Maira Cullen Code(s): F31.9 - Bipolar disorder, unspecified Plan: Continue with counseling and therapy patient on get time in, Topamax clonazepam and on ADHD medication, buspirone (5) Overweight (BMI 25.0-29.9): Code(s): E66.3 - Overweight Plan: Continue with diet and exercise (6) Colon cancer screening: Code(s): Z12.11 - Encounter for screening for malignant neoplasm of colon (7) Cervical cancer screening: Code(s): Z12.4 - Encounter for screening for malignant neoplasm of cervix Orders: Orders Influenza [id number] Immunization Today Z23 - Encounter for immunization AMB Hemoglobin A1c Today E10.65 - Type 1 diabetes mellitus with hyperglycemia Free T4 (Free Thyroxine) Today E03.9 - Hypothyroidism, unspecified Thyroid Stimulating Hormone Today E03.9 - Hypothyroidism, unspecified Referrals Cologuard Test Z12.11 - Encounter for screening for malignant neoplasm of colon [employer]ATIONSHIP ASSOCIATE Referral Z12.4 - Encounter for screening for malignant neoplasm of cervix Coding Level of Care Code Est Pt Level 4 (48501) Diagnoses Type 1 diabetes mellitus with hyperglycemia E10.65 Acquired hypothyroidism E03.9 Hypothyroidism type: acquired Hypercholesterolemia E78.00 Bipolar 1 disorder F31.9 Overweight (BMI 25.0-29.9) E66.3 Colon cancer screening Z12.11 Cervical cancer screening Z12.4
[2023-06-11 08:20] VITALS: BP 126/70; PULSE 77; O2SAT 97; BMI 29.3
== END 2023-06-11 08:57 | disposition home or self-care (01) ==
PROVIDERS: PCP Internal Medicine; Visit Provider Internal Medicine
DX: E10.65 Type 1 diabetes mellitus with hyperglycemia (principal); E03.9 Hypothyroidism, unspecified; E78.00 Pure hypercholesterolemia, unspecified; F31.9 Bipolar disorder, unspecified; E66.3 Overweight; Z12.11 Encounter for screening for malignant neoplasm of colon
CPT/HCPCS: 83036; 99214

== ENCOUNTER 2023-12-24 12:03 | Outpatient (REF) | payer OTHER, SELFPAY ==
--- NOTE | ~2023-12-24 | MM_ITS ---
EXAMINATION: MM SCREENING DIGITAL BREAST TOMOSYNTHESIS, BILATERAL CLINICAL INFORMATION: Screening. Asymptomatic. COMPARISON: Mammography: This study is compared with prior exams dating back to 2017. TECHNIQUE: Digital breast tomosynthesis is performed in both the craniocaudal and mediolateral oblique views along with computer-aided detection (CAD). Synthesized 2D images are generated from the tomosynthesis. FINDINGS: The breasts are heterogeneously dense, which may obscure small masses (ACR BI-RADS breast composition Category c). There are no significant masses, abnormal calcifications, or other abnormalities. There are few coarse calcifications present which are benign. MM/MM tomosynthesis screening BI IMPRESSION: No mammographic evidence of malignancy. ASSESSMENT: BI-RADS BI-RADS 2 - Benign Findings RECOMMENDATION: Routine annual mammography screening. 1 year F/U This examination should not preclude the clinical evaluation of a suspicious palpable abnormality. This patient's information was entered into a reminder system with a target due date for their next mammogram.
== END 2023-12-24 12:04 | disposition home or self-care (01) ==
LOC: HO.MAMMO 12:03
PROVIDERS: PCP Internal Medicine; Visit Provider Internal Medicine
DX: Z12.31 Encounter for screening mammogram for malignant neoplasm of breast (principal)
CPT/HCPCS: 77063; 77067

== ENCOUNTER → 2023-12-24 12:30 | Outpatient (BNV) | payer OTHER, SELFPAY | PROVIDERS: PCP Internal Medicine; Visit Provider Radiology Diagnostic Radiology | DX: Z12.31 Encounter for screening mammogram for malignant neoplasm of breast (principal) | CPT/HCPCS: 77063; 77067 ==

== ENCOUNTER 2024-05-12 08:44 | Outpatient (REF) | payer OTHER, SELFPAY ==
--- NOTE | ~2024-05-12 | XR_ITS ---
EXAMINATION: XR CHEST CLINICAL INFORMATION: M54.2 - Cervicalgia; cough. COMPARISON: 10/30/2022. 08/28/2021. TECHNIQUE: 2 views of the chest were obtained. FINDINGS: The cardiac, hilar, and mediastinal contours are normal. The lungs are clear bilaterally. There is no pneumothorax or pleural effusion. There is no focal osseous or soft tissue abnormality. XR/XR chest 2V IMPRESSION: Normal chest. Electronically signed by: Hola Boss MD 07/23/2024 08:16 PM [facility]
[2024-05-12 12:18] LABS: MANUAL DIFF FLAG NO
[2024-05-12 12:30] LABS: Basophils Absolute Auto 0.1 X10*3/uL (0.0-0.2); Basophils Percent Auto 0.7 % (0-2); Eosinophils Absolute Auto 0.3 X10*3/uL (0.0-0.4); Eosinophils Percent Auto 3.7 % (0-4); Hematocrit 41.6 % (37.0-47.0); Hemoglobin 14.3 g/dl (12.0-16.0); Imm Gran Abs Auto 0.03 X10*3/uL (0.00-0.03); Imm Gran Pct Auto 0.4 % (0.0-0.4); Lymphocytes Absolute Auto 1.9 X10*3/uL (1.2-4.9); Lymphocytes Percent Auto 28.4 % (20-40); Mean Corpuscular HGB Conc 34.4 g/dl (31.0-35.0); Mean Corpuscular Hemoglobin 30.9 pg (27.0-33.0); Mean Corpuscular Volume 89.8 fL (80.0-98.0); Monocytes Absolute Auto 0.5 X10*3/uL (0.1-1.2); Monocytes Percent Auto 7.2 % (2-11); Neutrophils Percent Auto 59.6 % (45-73); Platelet Count 266 X10*3/uL (160-400); Red Blood Count 4.63 X10*6/uL (4.20-5.50); Red Cell Distribution Width 11.8 % (11.0-16.0); White Blood Count 6.7 X10*3/uL (4.8-10.8)
[2024-05-12 13:08] LABS: Alanine Aminotransferase 24 U/L (0-31); Albumin Level 4.5 g/dL (3.5-5.0); Alkaline Phosphatase 113 U/L (39-117); Anion Gap 9 (12-20); Aspartate Amino Transferase 27 U/L (5-31); Bilirubin Total 0.4 mg/dL (0.0-1.0); Blood Urea Nitrogen 16 mg/dL (9-16); Calcium 10.5 mg/dL (8.4-10.2); Carbon Dioxide 33 mmol/L (22-29); Chloride 104 mmol/L (96-108); Cholesterol 202 mg/dL (<200); Estimated Glomerular Filt Rate > 60; Glucose Random 113 mg/dL (60-115); HDL Cholesterol 92 mg/dL (>40); LDL Cholesterol Calculated 95 mg/dL (<100); Potassium 3.9 mmol/L (3.3-5.1); Sodium 142 mmol/L (135-145); Total Protein 7.3 g/dL (6.5-8.0); Triglycerides 79 mg/dL (<150)
[2024-05-12 13:12] LABS: Creatinine Urine 41.74 mg/dL; Microalbumin Urine < 5.0 mg/L
[2024-05-12 13:27] LABS: Free T4 (Free Thyroxine) 1.54 ng/dL (0.71-1.85); Thyroid Stimulating Hormone 0.26 uIU/mL (0.32-4.0); Vitamin D 25-OH Total 33.7 ng/mL (>30)
[2024-05-12 13:30] LABS: Folate 10.9 ng/mL (> or = 4.0); Vitamin B12 773 pg/mL (200-900)
== END 2024-05-12 08:45 | disposition home or self-care (01) ==
LOC: HO.LAB 08:44
PROVIDERS: PCP Internal Medicine; Visit Provider Internal Medicine
DX: Z00.00 Encounter for general adult medical examination without abnormal findings (principal); E10.65 Type 1 diabetes mellitus with hyperglycemia; Z79.4 Long term (current) use of insulin; M54.2 Cervicalgia; E03.9 Hypothyroidism, unspecified; E78.00 Pure hypercholesterolemia, unspecified; E66.9 Obesity, unspecified; H93.8X1 Other specified disorders of right ear; Z23 Encounter for immunization; Z12.4 Encounter for screening for malignant neoplasm of cervix; Z68.33 Body mass index [BMI] 33.0-33.9, adult
CPT/HCPCS: 36415; 71046; 80053; 80061; 82043; 82306; 82570; 82607; 82746; 83036; 84439; 84443; 85025; 90471; 90714

== ENCOUNTER 2024-05-12 08:44 | Outpatient (AMB) | payer OTHER, SELFPAY ==
[2024-05-12 09:12] VITALS: BP 128/72; PULSE 74; O2SAT 98; BMI 33.1
--- NOTE | 2024-05-12 09:12 | MHC.PC.OV ---
Vital Signs 05/12/24 09:12 Height 5 ft 2 in Weight 181 lb BMI 33.1 BP 128/72 Blood Pressure Location Lt brachial Position Sitting Pulse 74 Pulse Source Pulse Oximeter Pulse Oximetry (%) 98 Oxygen Delivery Method Room Air Intake Visit Reasons: PE + follow up DM Allergies simvastatin Allergy (Severe, Verified 05/12/24 09:12) Muscle cramps pravastatin Allergy (Unknown, Verified 05/12/24 09:12) myalgia Medication List - Last Reconciled 05/12/24 by Bravo Carey MD albuterol sulfate 90 mcg/actuation (Ventolin HFA) 2 puffs inhalation Q6H PRN blood sugar diagnostic ([employer] Verio test strips) As directed check the BS TID buspirone 30 mg PO BEDTIME carbamazepine (Tegretol) 400 mg PO BEDTIME chlorhexidine gluconate 0.12% mL PO DIRECTED clonazepam 2 mg PO QAM dextroamphetamine-amphetamine 10 mg 1 tab PO .QD dextroamphetamine-amphetamine 20 mg ER (Adderall XR) 20 mg PO DAILY dextroamphetamine-amphetamine 30 mg 1 tab PO TID flash glucose scanning reader ([employer] Inform[employer]Style Kilo 14 Day [place]) As directed flash glucose sensor (FreeStyle Kilo 14 Day Sensor kit) As directed insulin glargine (Basaglar KwikPen U-100 Insulin) 30 units (0.3 mL) subcut QAM insulin lispro (Humalog KwikPen (U-100) Insulin) 6 - 10 units (0.06 - 0.1 mL) subcut TID levothyroxine 125 mcg PO BEDTIME 90 days melatonin 3 mg PO BEDTIME PRN naratriptan 2.5 mg PO Q4H PRN 90 days pen needle, diabetic (BD Ultra-Fine Mini Pen Needle) 1 ea subcut DAILY 90 days quetiapine (Seroquel) 25 mg PO BEDTIME rosuvastatin 5 mg PO BEDTIME topiramate 300 mg PO BEDTIME triamcinolone acetonide 0.5% 1 appl topical BID 14 days valacyclovir 500 mg PO BID 3 days Tobacco use date assessed: 05/12/24 Dental Screening Dental Screen Date: 05/12/24 Did you have a dental visit in the last 12 months?: Yes Did you have a dental problem in the last 6 months where you did not have access to dental care?: No Was dental information given to patient?: Patient has dentist HPI PE + follow up DM HPI Details 49-year-old obese female(noted 21 lb weight gain) with diabetes mellitus type 1 hypothyroidism hypercholesterolemia bipolar disorder coming in for follow-up. Last seen in 06/12/2023. Patient's mammogram is up-to-date colonoscopy still pending. Patient is up-to-date with Ophthalmology/Optometry 02/24/2024 nonproliferative diabetic retinopathy PFSH Medical History (Updated 05/12/24 @ 10:09 by Bravo Carey MD) Overweight (BMI 25.0-29.9) BMI over 35 Umbilical hernia Eczema COVID-19 virus infection Shortness of breath Colonoscopy refused Colon cancer screening History of incarceration Hx MRSA infection Former smoker Recovering alcoholic ADHD (attention deficit hyperactivity disorder) Anxiety and depression Hx of Huitron's palsy Insomnia Bipolar 1 disorder Positive RPR test Type 1 diabetes mellitus with hyperglycemia Hypercholesterolemia Migraine Thyroid nodule PTSD (post-traumatic stress disorder) Hypothyroid Surgical History Hx of bilateral cataract extraction History of dental surgery History of tonsillectomy History of eye surgery History of section Family History (Updated 05/12/24 @ 10:02 by Bravo Carey MD) Father Alcoholism Cirrhosis Emphysema lung Liver cancer Tongue cancer Mother Hemochromatosis Maternal Aunt Bone cancer Paternal Aunt Renal cell cancer Brother In good health Alcohol abuse Son In good health Other FHx: mental illness Substance abuse Social History Housing: Apartment Are you a primary customer care professional to a significant other at home: No Do you presently have visiting nurse or other home services: No Alcohol intake: never Patient Tobacco Use Status: Former Tobacco user Tobacco use type: Cigarette Years Smoked: quit January 2011 e-Cigarette/Vaping Use: Never Used Second Hand Smoke Exposure: No service: No Current occupational status: employed Current occupational exposures/hazards: No Cognitive needs: No Hearing needs: No Vision needs: Yes Questionnaire PHQ-9 Over the last 2 weeks, how often have you been bothered by any of the following problems? 1. Little interest or pleasure in doing things: several days 2. Feeling down, depressed, or hopeless: not at all 3. Trouble falling or staying asleep, or sleeping too much: nearly every day 4. Feeling tired or having little energy: several days 5. Poor appetite or overeating: several days 6. Feeling bad about yourself - or that you are a failure or have let yourself or your family down: not at all 7. Trouble concentrating on things, such as reading the newspaper or watching television: nearly every day 8. Moving or speaking so slowly that other people could have noticed. Or the opposite - being so fidgety or restless that you have been moving around a lot more than usual: not at all 9. Thoughts that you would be better off or of hurting yourself in some way: not at all Total score: 9 Depression Screening Interpretation: Positive Depression Screening Done: Yes 15635 - PHQ-9 Billing: Yes Source: Developed by Drs. Lauri Edwards, Holley Neville, Ryan Mariscal and colleagues, with an educational flora from [employer]. Thrive Questionnaire Date Thrive assessed: 05/12/24 I am a: Patient What is your living situation today?: I have a steady place to live Within the past 12 months, did the food you bought not last and you didn't have the money to get more?: Never true Within the past 12 months, did you worry whether your food would run out before you got money to buy more?: Never true Do you have trouble paying for medicines?: No Do you have trouble getting transportation to medical appointments?: No Do you have trouble paying your heating and electricity bill?: No Do you have trouble taking care of your child, family member or friend?: No Do you have trouble with day-to-day activities such as bathing, preparing meals, shopping, managing finances, etc.?: No Are you currently unemployed and looking for a job?: No Are you interested in more education?: No Please select the resources that you would like help with: None Currently or been in a relationship where the following occur: No concerns reported THRIVE Score: 0 AUDIT C Alcohol Use Questionnaire (AUDIT-C) 1. How often do you have a drink containing alcohol?: Never 3. How often do you have six or more drinks on one occasion?: Never Total Score: 0 DONNELL-7 AMB Questionnaire DONNELL-7 Date DONNELL - 7 assessed: 05/12/24 Feeling nervous, anxious, or on edge: 3 = Nearly every day Not being able to stop or control worryin = More than half the days Worrying too much about different things: 2 = More than half the days Trouble relaxin = Nearly every day Being so restless that it is hard to sit still: 3 = Nearly every day Becoming easily annoyed or irritable: 1 = Several days Feeling afraid as if something awful might happen: 1 = Several days Total DONNELL-7 score (0-4 normal; 5-9 mild; 10-14 moderate; 15-21 severe): 15 Source: Developed by Drs. Lauri Edwards, Holley Neville, Ryan Mairscal and colleagues, with an educational flora from [employer]. Review of Systems Const Denies poor appetite and Denies weakness Eyes Denies no additional complaints ENT Reports Normal hearing present, Denies dizziness, Denies nasal congestion, Denies tinnitus and Denies sore throat Card Denies chest pain, Denies syncope, Denies rapid heart rate and Denies dyspnea Resp Denies cough and Denies dyspnea GI Denies change in stool character, Reports constipation, Denies diarrhea, Denies nausea and Denies vomiting Denies urinary frequency, Denies difficulty voiding and Denies dysuria Neuro Reports Normal hearing present, Denies confusion, Denies dizziness, Denies syncope and Denies weakness Psych Denies confusion Physical exam (Primary Care) Vital Signs: Last Vital Signs Pulse 74 05/12/24 09:12 BP 128/72 05/12/24 09:12 Pulse Ox 98 05/12/24 09:12 Oxygen Delivery Method Room Air 05/12/24 09:12 Next steps: R posterior auricular mass 2 cm mass noted BMI result Body Mass Index 33.1 Tobacco/Smoking Status: Tobacco use Status Tobacco use date assessed 05/12/24 05/12/24 09:13 Patient Tobacco Use Status Former Tobacco user 05/12/24 09:13 Tobacco use type Cigarette 05/12/24 09:13 e-Cigarette/Vaping Use Never Used 05/12/24 09:13 PHQ-9: PHQ-9 Score PHQ-9: Total score 9 05/12/24 09:52 Depression Screening Interpretation: Positive Thrive Assessment: Date of Thrive Assessment Date Thrive assessed 05/12/24 05/12/24 09:13 Currently or been in a relationship where the following occur: No concerns reported Const General: No confusion Orientation/consciousness: No confusion HENMT Head: Yes normocephalic Head images: 1. 2 x 2 cm mass palpable non tender no redness Ears: external ears normal and TM's normal bilaterally Face and sinus: Yes normal facial exam Mouth: moist mucous membranes Throat: Yes tonsils normal Eyes Conjunctivae: conjunctivae normal Pupils: Equal, round and reactive pupils present and Pupil accommodation reflex normal Direct Ophthalmoscopy: normal light reflex Neck Neck: No lymphadenopathy Thyroid: Thyroid normal Chest Chest palpation & inspection: normal inspection of the chest Resp Effort & Inspection: normal respiratory effort and no audible wheezes Auscultation: clear to auscultation bilaterally, no crackles, no wheezes and lung sounds not diminished Cardio Rate: regular rate Rhythm: regular rhythm Peripheral pulses: radial pulses present and dorsalis pedis present GI Palpation (GI): no masses Auscultation: normal bowel sounds and normoactive bowel sounds Rectal Exam - Female: deferred Skin General skin exam: no rashes or lesions noted Rashes: no rashes Neuro General: No confusion Cranial nerves: Yes Equal, round and reactive pupils present and Yes Normal hearing present Cognition (Neuro): normal cognition Gait exam (Neuro): Normal gait present Motor exam (neuro): 5/5 motor strength present throughout Deep tendon reflexes (DTR's): Right brachioradialis reflex intensity grade: 2+, Left brachioradialis reflex intensity grade: 2+, Right patellar reflex intensity grade: 2+ and Left patellar reflex intensity grade: 2+ Extrem Other: pinprick , pedal pulse normal General: No edema Results AMB Hemoglobin A1c AMB Hemoglobin A1c 8.6 % Last Edit by Lashaun Law CMA on 05/12/24 09:34 Immunizations tetanus-diphtheria toxoids-Td 2 Lf unit-2 Lf unit/0.5 mL IM suspension Performing Provider: Bravo Carey MD [facility] Administered by: Lashaun Law CMA on 05/12/24 10:14 Dose Route Admin Location Dispensed Lot Number Expiration Date [facility] Communication Equipment Mechanic 0.5 mL IM Left Deltoid 0.5 mL [id number] 10/03/24 [id number] [employer] VIS Given Date VIS Provided VIS Publication Date 05/12/24 Single Vaccine 21 Eligibility Eligibility Date Funding Source Not VFC Eligible 05/12/24 State funds Results Reviewed Results Reviewed: Laboratory Last Values Hgb A1c (Clinic) 8.6 % (4.0-6.0) H 05/12/24 09:13 Assessment and Plan Assessment & Plan (1) Annual physical exam: Code(s): Z00.00 - Encounter for general adult medical examination without abnormal findings Plan: Patient is advised to eat healthy, keep well hydrated, keep active and have adequate sleep. (2) Obesity (BMI 30-39.9): Code(s): E66.9 - Obesity, unspecified Plan: Diet and exercise (3) Type 1 diabetes mellitus with hyperglycemia: Comment: 02/2024 [place] for sight (posterior capsular opacity) Dr. niranjan Cordova(November 2023) Code(s): E10.65 - Type 1 diabetes mellitus with hyperglycemia Plan: Patient presently on Basaglar 30 units once a day Humalog sliding scale (4) Hypothyroid: Code(s): E03.9 - Hypothyroidism, unspecified Qualifiers: Hypothyroidism type: acquired Qualified Code(s): E03.9 - Hypothyroidism, unspecified Plan: Continue with thyroid medication but will need blood work (5) Hypercholesterolemia: Code(s): E78.00 - Pure hypercholesterolemia, unspecified Plan: Avoid fried foods, chicken skin, eggs, butter margarine, pastries and meat. Be it pork or beef they have a lot of cholesterol LDL goal of less than 100 and triglyceride of less than 150 on rosuvastatin 5 mg once a day need to get blood work (6) Migraine: Code(s): G43.909 - Migraine, unspecified, not intractable, without status migrainosus Qualifiers: Migraine type: without aura Status migrainosus presence: without status migrainosus Intractability: not intractable Qualified Code(s): G43.009 - Migraine without aura, not intractable, without status migrainosus Plan: Continue with migraine medication (7) Bipolar 1 disorder: Comment: counselling Maira Cullen Code(s): F31.9 - Bipolar disorder, unspecified Plan: Continue with counseling and therapy (8) Mass of right ear: Code(s): H93.8X1 - Other specified disorders of right ear (9) Neck pain on right side: Code(s): M54.2 - Cervicalgia Orders: Orders Complete Blood Count Auto Diff Today E10.65 - Type 1 diabetes mellitus with hyperglycemia Comprehensive Met. Panel Today E10.65 - Type 1 diabetes mellitus with hyperglycemia Lipid Panel Today E10.65 - Type 1 diabetes mellitus with hyperglycemia, E78.00 - Pure hypercholesterolemia, unspecified Vitamin D 25-OH Total Today E10.65 - Type 1 diabetes mellitus with hyperglycemia XR chest 2V Today M54.2 - Cervicalgia AMB Hemoglobin A1c Today Z13.9 - Encounter for screening, unspecified Creatinine Urine Today E10.65 - Type 1 diabetes mellitus with hyperglycemia, E11.65 - Type 2 diabetes mellitus with hyperglycemia Microalbumin, Random (w Creat) Today E10.65 - Type 1 diabetes mellitus with hyperglycemia, E11.65 - Type 2 diabetes mellitus with hyperglycemia Thyroid Stimulating Hormone Today E10.65 - Type 1 diabetes mellitus with hyperglycemia Free T4 (Free Thyroxine) Today E10.65 - Type 1 diabetes mellitus with hyperglycemia Vitamin B12 and Folate Today E10.65 - Type 1 diabetes mellitus with hyperglycemia CT soft tissue neck wo IV con Today H93.8X1 - Other specified disorders of right ear PT Evaluation and Treatment Today M54.2 - Cervicalgia Medications: New tirzepatide (weight loss) (Zepbound) for 4 weeks 2.5 mg (0.5 mL) subcut QWEEK 2 mL 1RF E66.9 - Obesity, unspecified Refilled valacyclovir 500 mg PO BID 3 days 6 tabs 5RF E10.65 - Type 1 diabetes mellitus with hyperglycemia albuterol sulfate 90 mcg/actuation (Ventolin HFA) 2 puffs inhalation Q6H PRN 8.5 grams 0RF shortness of breath or wheezing R06.02 - Shortness of breath Coding Level of Care Code Est Pt Prev Care 40-64y(80572) Diagnoses Annual physical exam Z00.00 Obesity (BMI 30-39.9) E66.9 Type 1 diabetes mellitus with hyperglycemia E10.65 Acquired hypothyroidism E03.9 Hypothyroidism type: acquired Hypercholesterolemia E78.00 Migraine without aura and without status migrainosus, not intractable G43.009 Migraine type: without aura Status migrainosus presence: without status migrainosus Intractability: not intractable Bipolar 1 disorder F31.9 Mass of right ear H93.8X1 Neck pain on right side M54.2
== END 2024-05-12 10:24 | disposition home or self-care (01) ==
PROVIDERS: PCP Internal Medicine; Visit Provider Internal Medicine
DX: Z00.00 Encounter for general adult medical examination without abnormal findings (principal); E10.65 Type 1 diabetes mellitus with hyperglycemia; F31.9 Bipolar disorder, unspecified; E66.9 Obesity, unspecified; Z68.32 Body mass index [BMI] 32.0-32.9, adult; E03.9 Hypothyroidism, unspecified; E78.00 Pure hypercholesterolemia, unspecified; G43.009 Migraine without aura, not intractable, without status migrainosus; H93.8X1 Other specified disorders of right ear; M54.2 Cervicalgia; Z23 Encounter for immunization

== ENCOUNTER 2024-05-12 10:42 | Outpatient (AMB) | payer OTHER, SELFPAY ==
--- NOTE | 2024-05-12 11:02 | A.OFFVIS_ITS ---
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 Required: No Allergies simvastatin Allergy (Severe, Verified 05/12/24 09:12) Muscle cramps pravastatin Allergy (Unknown, Verified 05/12/24 09:12) myalgia Medication List - Last Reconciled 05/12/24 by Elisa Hopson CNM albuterol sulfate 90 mcg/actuation (Ventolin HFA) 2 puffs inhalation Q6H PRN blood sugar diagnostic ([email or web address] Verio test strips) As directed check the BS TID buspirone 30 mg PO BEDTIME carbamazepine (Tegretol) 400 mg PO BEDTIME chlorhexidine gluconate 0.12% mL PO DIRECTED clonazepam 2 mg PO QAM dextroamphetamine-amphetamine 10 mg 1 tab PO .QD dextroamphetamine-amphetamine 20 mg ER (Adderall XR) 20 mg PO DAILY dextroamphetamine-amphetamine 30 mg 1 tab PO TID flash glucose scanning reader ([employer]Style Kilo 14 [place]) As directed flash glucose sensor (FreeStyle Kilo 14 Day Sensor kit) As directed insulin glargine (Basaglar KwikPen U-100 Insulin) 30 units (0.3 mL) subcut QAM insulin lispro (Humalog KwikPen (U-100) Insulin) 6 - 10 units (0.06 - 0.1 mL) subcut TID levothyroxine 125 mcg PO BEDTIME 90 days melatonin 3 mg PO BEDTIME PRN naratriptan 2.5 mg PO Q4H PRN 90 days pen needle, diabetic (BD Ultra-Fine Mini Pen Needle) 1 ea subcut DAILY 90 days quetiapine (Seroquel) 25 mg PO BEDTIME rosuvastatin 5 mg PO BEDTIME tirzepatide (weight loss) (Zepbound) 2.5 mg (0.5 mL) subcut QWEEK topiramate 300 mg PO BEDTIME triamcinolone acetonide 0.5% 1 appl topical BID 14 days valacyclovir 500 mg PO BID 3 days Is last menstrual period known: Yes Last menstrual period: 12/28/23 Post menopausal: No Patient : No HPI HPI New patient Annual: Details: Is here scheduled as a new patient annual but she believes she has not made before in years past at the practice. 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 She is sexually active with the same partner for many years and has no worries whatsoever about control she does not use control she says she has never gotten in the last 27 years and does not think she can at this stage. She has a concern about in ridge of tissue that she wants me to check near her groin. It does not hurt her and she can not really see it she just feels it, She then she is due for Pap smear has no particular worries about STIs. She declines any blood work them. She just saw her primary care provider this morning and she was just given a prescription for Z bound she had lost weight but then gained it back. She is on insulin for her type 1 diabetes as well as medicine for her ADHD. She does yoga for exercise she has a neck injury that she has been working on and she has been doing PT yoga stretches for it. She started skipping periods a little bit more in the last year and then she has not had 1 in the last 3 months. She says they were irregular before then as well. [facility] Medical History (Updated 05/12/24 @ 11:53 by Elisa Hopson CNM) Overweight (BMI 25.0-29.9) BMI over 35 Umbilical hernia Eczema COVID-19 virus infection Shortness of breath Colonoscopy refused Colon cancer screening History of incarceration Hx MRSA infection Former smoker Recovering alcoholic ADHD (attention deficit hyperactivity disorder) Anxiety and depression Hx of Huitron's palsy Insomnia Bipolar 1 disorder Positive RPR test Type 1 diabetes mellitus with hyperglycemia Hypercholesterolemia Migraine Thyroid nodule PTSD (post-traumatic stress disorder) Hypothyroid Surgical History Hx of bilateral cataract extraction History of dental surgery History of tonsillectomy History of eye surgery History of section Family History (Updated 05/12/24 @ 10:02 by Bravo Carey MD) Father Alcoholism Cirrhosis Emphysema lung Liver cancer Tongue cancer Mother Hemochromatosis Maternal Aunt Bone cancer Paternal Aunt Renal cell cancer Brother In good health Alcohol abuse Son In good health Other FHx: mental illness Substance abuse Social History Housing: Apartment Are you a primary animal care technician to a significant other at home: No Do you presently have visiting nurse or other home services: No Alcohol intake: never Patient Tobacco Use Status: Former Tobacco user Tobacco use type: Cigarette Years Smoked: quit January 2011 e-Cigarette/Vaping Use: Never Used Second Hand Smoke Exposure: No service: No Current occupational status: employed Current occupational exposures/hazards: No Cognitive needs: No Hearing needs: No Vision needs: Yes Female Reproductive History Menstrual Date of last menstrual period: 12/28/23 Physical Exam Vital Signs: Last Vital Signs BP 132/70 05/12/24 11:03 BMI result Body Mass Index 33.1 Const General: healthy appearing, comfortable, no acute distress, well developed and alert Nutritional Appearance: average body habitus Orientation/consciousness: patient oriented x3 Limitations: no limitations HEENT Head: Yes normocephalic Neck Neck: Yes normal visual inspection Chest Chest palpation & inspection: normal inspection of the chest Breast/axilla inspection: normal inspection of the breasts and normal inspection of the axillae Breast/axilla palpation: normal palpation of the breasts and normal palpation of the axillae Resp Effort & Inspection: normal respiratory effort GI Inspection: Yes normal to inspection, No Abdominal wall edema and No distended Palpation (GI): Soft to palpation and nontender Other: Vagina mucosa slightly dry consistent with perimenopause. Cervix multiparous pink smooth healthy appearing with scant to no discharge. Uterus small anteverted mobile nontender extremely good tone with Kegel no adnexal enlargement the reach of tissue that she feels feels like normal pelvic muscular architecture muscles General: Yes bladder normal to palpation External Female Exam: normal external appearance and normal appearance of the urethra Speculum Exam - Vagina: normal appearance of the vagina, normal palpation and normal vaginal discharge Speculum Exam - Cervix: normal appearance of the cervix, normal palpation and nontender Bimanual exam- vagina & uterus: normal bimanual exam, normal palpation, uterine size normal, bladder normal to palpation, consistency normal, normal palpation, uterine mobility normal, uterine shape normal, No Cervical tenderness present, non-tender and no cervical motion tenderness Bimanual Exam- Adnexa, other: normal adnexae, no masses, normal and No adnexal tenderness Neuro General: patient oriented x3 Results AMB Hemoglobin A1c AMB Hemoglobin A1c 8.6 % Last Edit by Lashaun Law CMA on 05/12/24 09 :34 Assessment & Plan Assessment & Plan (1) Cervical cancer screening: Code(s): Z12.4 - Encounter for screening for malignant neoplasm of cervix Category: Medical (2) Neck pain on right side: Code(s): M54.2 - Cervicalgia Category: Medical (3) Well woman exam with routine gynecological exam: Code(s): Z01.419 - Encounter for gynecological examination (general) (routine) without abnormal findings Category: Medical Plan -----Discussed in this visit the following: healthy balanced diet, regular and consistent exercise, getting recommended health screens, doing the best she can for her particular health concerns, kegel exercises, pap smear screening and followup recommendations, mammography screening and SBE, normal changes in cycles in her life stage--- . She just recently had her mammogram. She drives out here every 3 months to see her doctor and get her menses seem to. She is doing the best she can for health and feels like she has found her niche in terms of her work She was not worried about STIs did accept cultures but did not need blood work. Pap smear was done discussed kaylin menopausal changes and water-based lubricants that may be useful. Discussed perimenopause and that was whole menopause when her menses are absent for full year she is not experiencing any hot flashes or anything We will see her in 1 year Orders: Orders Bacterial Vaginosis Panel Today E66.9 - Obesity, unspecified PAP + HPV E6/E7 rfx 18/45 Today Z12.4 - Encounter for screening for malignant neoplasm of cervix CT NG by PCR Today Z00.00 - Encounter for general adult medical examination without abnormal findings Coding Level of Care Code New Pt Prev Care 40-64y(63091) Diagnoses Cervical cancer screening Z12.4 Neck pain on right side M54.2 Well woman exam with routine gynecological exam Z01.419
[2024-05-12 11:03] VITALS: BP 132/70; BMI 33.1
== END 2024-05-12 11:56 | disposition home or self-care (01) ==
PROVIDERS: PCP Internal Medicine; Visit Provider Advanced Practice Midwife
DX: Z01.419 Encounter for gynecological examination (general) (routine) without abnormal findings (principal); M54.2 Cervicalgia
CPT/HCPCS: 99386

== ENCOUNTER → 2024-05-12 12:23 | Outpatient (BNV) | payer OTHER, SELFPAY | PROVIDERS: PCP Internal Medicine; Visit Provider Radiology Diagnostic Radiology | DX: R05.9 Cough, unspecified (principal) | CPT/HCPCS: 71046 ==

== ENCOUNTER 2024-05-12 18:20 | Outpatient (REF) | payer OTHER, SELFPAY ==
[2024-05-13 12:24] LABS: CT PCR NOT DETECTED (Not Detect.); NG PCR NOT DETECTED (Not Detect.)
[2024-05-13 14:36] LABS: Bacterial Vaginosis PCR POSITIVE (Negative); Candida Group PCR NOT DETECTED (Not Detect); Candida glab krusei PCR NOT DETECTED (Not Detect); Trichomonas vaginalis PCR NOT DETECTED (Not Detect)
[2024-05-16 12:19] LABS: HPV mRNA E6/E7 Not Detected (Not Detected)
== END 2024-05-12 18:21 | disposition home or self-care (01) ==
LOC: HO.LNP 18:20
PROVIDERS: Visit Provider Advanced Practice Midwife
DX: Z00.00 Encounter for general adult medical examination without abnormal findings (principal); E66.9 Obesity, unspecified; Z12.4 Encounter for screening for malignant neoplasm of cervix; Z20.2 Contact with and (suspected) exposure to infections with a predominantly sexual mode of transmission
CPT/HCPCS: 0352U; 87491; 87591; 87624; 88175

== ENCOUNTER 2024-07-06 07:49 | Outpatient (REF) | payer OTHER, SELFPAY ==
[2024-07-06] MEDS: iohexoL 350 MG/ML 75 ML INFUS..BTL 65 ML IV (09:05)
[2024-07-06 11:15] LABS: GFR POC > 60
== END 2024-07-06 07:50 | disposition home or self-care (01) ==
LOC: HO.CT 07:49
PROVIDERS: PCP Internal Medicine; Visit Provider Internal Medicine
DX: H93.8X1 Other specified disorders of right ear (principal)
CPT/HCPCS: 70491; 82565; Q9967

== ENCOUNTER 2024-09-01 08:54 | Outpatient (AMB) | payer OTHER, SELFPAY ==
--- OUTSIDE RECORDS SUMMARY | 2024-09-01 09:11 | XMS_ITS | Patient Health Record ---
Author Organization [facility] Address [address] [place] [address] Care Team Providers Care Optical Laboratory Manager Name Role Phone RUI Zaydacarmen Primary Care Provider Unavailabl e Allergies Allergen (clinical drug ingredient) Drug/Non Drug Allergy documented on EMR Reaction Allergy Type Onset Date Status simvastatin Simvastatin (uncoded) Unknown Allergy Active Reason For Referral No Information Medications Medication SIG (Take, Route, Frequency, Duration) Notes Start Date End Date Status Naratriptan HCl 2.5 MG 1 tablet Orally O nce a day for 1 day(s) Active Amphetamine Salt Combo 30 MG 1 tablet Or ally Twice a day Active QUEtiapine Fumarate 25 MG 1 tablet at be dtime Orally Once a day for 30 day(s) Active carBAMazepine 200 MG 1 tablet Orally Twi ce a day for 30 day(s) Active HumaLOG KwikPen 100 UNIT/ML 8-6-8 units ac meals Active FreeStyle Kilo 14 Day Sensor - as directed Active Rosuvastatin Calcium 5 MG 1 tablet Once a day Active clonazePAM 2 MG 1 tablet Orally Once a day Active Lantus SoloStar 100 UNIT/ML 30 units at bedtime Active BD Pen Needle Mini U/F 31G X 5 MM as directed Active busPIRone HCl 30 MG 1 tablet Orally Twic e a day Active Levothyroxine Sodium 125 MCG 1 tablet Once a day Active Topiramate 100 MG 1 tablet Orally Once a day for 30 day(s) Active HumaLOG KwikPen 12-12-10 units ac.meal Active Lantus SoloStar 30 units at bedtime Active Problems Problem Type SNOMED Code ICD Code Onset Dates Problem Status W/U Status Risk Notes Problem 25941513 Primary hypothyr oidism (E03.9) Active confirmed Problem Hyperglycemia due to type 2 diabetes mellitus (50502749106398 9) Controlled diabetes mellitus with hyperglycemia (E11.65) Active confirmed Problem 885052818 Pure hypercholesterolemia (E78.00) Active confirmed Problem 510838440 Uncontrolled typ e 2 diabetes mellitus with hyperglycemia (E11.65) Active confirmed Plan Of Treatment Future Test Test Name Order Date Creatinine([facility]) 01/22/2021 ALT (SGPT)([facility]) 01/22/2021 AST (SGOT)([facility]) 01/22/2021 Hemoglobin A1C([facility]) 01/22/2021 Insurance Providers Payer Name Payer Address Payer Phone Subscriber Number Group Number Insured Name Patient Relationship to Insured Coverage Start Date Coverage End Date Health Plans [id number] [address] [place] [address] [id number] Amy Lee Self - patient is the insured 1 [facility] [address] [place] [address] [phone] [id number] Amy Lee Self - patient is the insured 8 [id number] [address] [place] [address] [id number] Amy Lee Self - patient is the insured 1 Medical (General) History Surgical History Surgery Date(Month/Year)
--- OUTSIDE RECORDS SUMMARY | 2024-09-01 09:11 | XMS_ITS | Patient Health Record ---
Author Organization [facility] Address [address] [place] [address] Care Team Providers Care Supervisor Advertising Dispatch Clerks Name Role Phone KAYE DRAPER Unavailable [phone] ALLERGIES Allergen (clinical drug ingredient) Drug/Non Drug Allergy documented on EMR Reaction Allergy Type Onset Date Status Substance with 5-herhhxg-7-methylgluta ryl-coenzyme A reductase inhibitor mechanism of action (substance) statins (uncoded) hives Allergy Active REASON FOR REFERRAL No Information MEDICATIONS Medication SIG (Take, Route, Frequency, Duration) Notes Start Date End Date Status Adderall Active buPROPion HCl Active Topiramate Active HumaLOG Active KlonoPIN Active Lantus Active PROBLEMS Problem Type ICD Code Onset Dates Problem Status W/U Status Risk SNOMED Code Notes Problem Diabetes with hyperosmolarity, type II or unspecified type, not stated as uncontrolled (250.20) Active confirmed Diabetic hyperosmolar non-ketotic state (480776105) Problem Hypothyroidism, unspecified (E03.9) Active confirmed Hypothyroidism (32277066) Problem Other specified diabetes mellitus without complications (E13.9) Active confirmed Diabetes mellit us without complication (167698410) PLAN OF TREATMENT No Information Insurance Providers Payer Name Payer Address Payer Phone Subscriber Number Group Number Insured Name Patient Relationship to Insured Coverage Start Date Coverage End Date [facility] [address] [place], [place] [id number] Amy Lee Self - patient is the insured MEDICAL (GENERAL) HISTORY Medical History History ICD Code diabetes I asthma thyroid disorder anxiety Surgical History Surgery Date(Month/Year) tonsils right breast biopsy Hospitalization History Reason Date(Month/Year) childbirth
[2024-09-01 09:22] VITALS: BP 136/72; PULSE 79; O2SAT 98; BMI 36.6
--- NOTE | 2024-09-01 09:22 | MHC.PC.OV ---
Vital Signs 09/01/24 09:22 Height 5 ft 2 in Weight 200 lb BMI 36.6 BP 136/72 Blood Pressure Location Lt brachial Position Sitting Pulse 79 Pulse Source Pulse Oximeter Pulse Oximetry (%) 98 Oxygen Delivery Method Room Air Intake Visit Reasons: DM Allergies simvastatin Allergy (Severe, Verified 09/01/24 09:23) Muscle cramps pravastatin Allergy (Unknown, Verified 09/01/24 09:23) myalgia Tobacco use date assessed: 09/01/24 Dental Screening Dental Screen Date: 09/01/24 Did you have a dental visit in the last 12 months?: Yes Did you have a dental problem in the last 6 months where you did not have access to dental care?: No Was dental information given to patient?: Patient has dentist HPI DM HPI Details The patient is a 49-year-old female presenting with hypothyroidism, type 1 diabetes mellitus, and migraine for follow-up. The patient's thyroid function has been erratic in recent years. Her April thyroid-stimulating hormone (TSH) level was low at 0.03, and the most recent test showed another low of 0.26. Regular thyroid medication has been adhered to but requires isolation from other medications or food for efficacy. A repeat thyroid test is needed. The patient has type 1 diabetes mellitus, requiring careful monitoring. She checks her glucose levels up to ten times daily but notes irregularities attributed to her demanding work schedule. Her recent hemoglobin A1c remains elevated at 7.7%. She expresses difficulty maintaining consistent exercise and is exploring clearance for cosmetic procedures contingent on optimal glucose control. The patient was initially seeing an grading supervisor, whose care she has since discontinued due to dissatisfaction. Migraine episodes have been significant recently, with topiramate being used preventively since it is challenging managing frequency with this regimen alone. Naratriptan is also being utilized for acute attacks. The patient also reported a lipoma noted under the left arm, present for approximately one month. There was concern about its nature; however, a physical examination revealed no signs of infection or malignant characteristics. [facility] Medical History (Updated 09/01/24 @ 09:49 by Bravo Carey MD) Overweight (BMI 25.0-29.9) BMI over 35 Umbilical hernia Eczema COVID-19 virus infection Shortness of breath Colonoscopy refused Colon cancer screening History of incarceration Hx MRSA infection Former smoker Recovering alcoholic ADHD (attention deficit hyperactivity disorder) Anxiety and depression Hx of Huitron's palsy Insomnia Bipolar 1 disorder Positive RPR test Type 1 diabetes mellitus with hyperglycemia Hypercholesterolemia Migraine Thyroid nodule PTSD (post-traumatic stress disorder) Hypothyroid Surgical History Hx of bilateral cataract extraction History of dental surgery History of tonsillectomy History of eye surgery History of section Family History (Updated 05/12/24 @ 10:02 by Bravo Carey MD) Father Alcoholism Cirrhosis Emphysema lung Liver cancer Tongue cancer Mother Hemochromatosis Maternal Aunt Bone cancer Paternal Aunt Renal cell cancer Brother In good health Alcohol abuse Son In good health Other FHx: mental illness Substance abuse Social History Housing: Apartment Are you a primary health care recruiter to a significant other at home: No Do you presently have visiting nurse or other home services: No Alcohol intake: never Patient Tobacco Use Status: Former Tobacco user Tobacco use type: Cigarette Years Smoked: quit January 2011 e-Cigarette/Vaping Use: Never Used Second Hand Smoke Exposure: No service: No Current occupational status: employed Current occupational exposures/hazards: No Cognitive needs: No Hearing needs: No Vision needs: Yes Questionnaire PHQ-9 Over the last 2 weeks, how often have you been bothered by any of the following problems? 1. Little interest or pleasure in doing things: several days 2. Feeling down, depressed, or hopeless: not at all 3. Trouble falling or staying asleep, or sleeping too much: nearly every day 4. Feeling tired or having little energy: several days 5. Poor appetite or overeating: several days 6. Feeling bad about yourself - or that you are a failure or have let yourself or your family down: not at all 7. Trouble concentrating on things, such as reading the newspaper or watching television: nearly every day 8. Moving or speaking so slowly that other people could have noticed. Or the opposite - being so fidgety or restless that you have been moving around a lot more than usual: not at all 9. Thoughts that you would be better off or of hurting yourself in some way: not at all Total score: 9 Depression Screening Interpretation: Positive Depression Screening Done: Yes 17556 - PHQ-9 Billing: Yes Source: Developed by Drs. Lauri Edwards, Holley Neville, Ryan Mariscal and colleagues, with an educational flora from [employer]. Thrive Questionnaire Date Thrive assessed: 09/01/24 I am a: Patient What is your living situation today?: I have a steady place to live Within the past 12 months, did the food you bought not last and you didn't have the money to get more?: Never true Within the past 12 months, did you worry whether your food would run out before you got money to buy more?: Never true Do you have trouble paying for medicines?: No Do you have trouble getting transportation to medical appointments?: No Do you have trouble paying your heating and electricity bill?: No Do you have trouble taking care of your child, family member or friend?: No Do you have trouble with day-to-day activities such as bathing, preparing meals, shopping, managing finances, etc.?: No Are you currently unemployed and looking for a job?: No Are you interested in more education?: No Please select the resources that you would like help with: None Currently or been in a relationship where the following occur: No concerns reported THRIVE Score: 0 AUDIT C Alcohol Use Questionnaire (AUDIT-C) 3. How often do you have six or more drinks on one occasion?: Never Total Score: 0 DONNELL-7 AMB Questionnaire DONNELL-7 Date DONENLL - 7 assessed: 09/01/24 Feeling nervous, anxious, or on edge: 3 = Nearly every day Not being able to stop or control worryin = More than half the days Worrying too much about different things: 2 = More than half the days Trouble relaxin = Nearly every day Being so restless that it is hard to sit still: 3 = Nearly every day Becoming easily annoyed or irritable: 1 = Several days Feeling afraid as if something awful might happen: 1 = Several days Total DONNELL-7 score (0-4 normal; 5-9 mild; 10-14 moderate; 15-21 severe): 15 Source: Developed by Drs. Lauri Edwards, Holley Neville, Ryan Mariscal and colleagues, with an educational flora from [employer]. Physical exam (Primary Care) Vital Signs: Last Vital Signs Pulse 79 09/01/24 09:22 BP 136/72 09/01/24 09:22 Pulse Ox 98 09/01/24 09:22 Oxygen Delivery Method Room Air 09/01/24 09:22 BMI result Body Mass Index 36.6 Tobacco/Smoking Status: Tobacco use Status Tobacco use date assessed 09/01/24 09/01/24 09:23 Patient Tobacco Use Status Former Tobacco user 09/01/24 09:23 Tobacco use type Cigarette 09/01/24 09:23 e-Cigarette/Vaping Use Never Used 09/01/24 09:23 PHQ-9: PHQ-9 Score PHQ-9: Total score 9 09/01/24 09:48 Depression Screening Interpretation: Positive Thrive Assessment: Date of Thrive Assessment Date Thrive assessed 09/01/24 09/01/24 09:23 Currently or been in a relationship where the following occur: No concerns reported Const General: alert; No acute distress Eyes Conjunctivae: conjunctivae normal Resp Auscultation: clear to auscultation bilaterally Cardio Rate: regular rate Rhythm: regular rhythm GI Inspection: Yes normal to inspection Extrem General: Yes normal to inspection and No edema Results AMB Hemoglobin A1c AMB Hemoglobin A1c 7.7 % Last Edit by Lashaun Law CMA on 09/01/24 09:48 Results Reviewed Results Reviewed: Laboratory Last Values Hgb A1c (Clinic) 7.7 % (4.0-6.0) H 09/01/24 09:24 Coding Level of Care Code Est Pt Level 4 (91592) Complex EM visit Add On G2211 Diagnoses Type 1 diabetes mellitus with hyperglycemia E10.65 Hypercholesterolemia E78.00 Acquired hypothyroidism E03.9 Hypothyroidism type: acquired Bipolar 1 disorder F31.9 Mass of right ear H93.8X1 Additional Codes PHQ-9 - 93095 - PHQ-9 Billing: Yes ([id number]) Assessment & Plan Assessment & Plan (1) Type 1 diabetes mellitus with hyperglycemia: Comment: 02/2024 [facility] (post[facility] capsular opacity[facility] Dr. niranjan Cordova(November 2023) Code(s): E10.65 - Type 1 diabetes mellitus with hyperglycemia Category: Medical (2) Hypercholesterolemia: Code(s): E78.00 - Pure hypercholesterolemia, unspecified Category: Medical (3) Hypothyroid: Code(s): E03.9 - Hypothyroidism, unspecified Category: Medical Qualifiers: Hypothyroidism type: acquired Qualified Code(s): E03.9 - Hypothyroidism, unspecified (4) Bipolar 1 disorder: Comment: counselling Maira Cullen/ Nilsa Baez 08/2024 Q 2 months Code(s): F31.9 - Bipolar disorder, unspecified Category: Medical (5) Mass of right ear: Code(s): H93.8X1 - Other specified disorders of right ear Category: Medical Plan: Awaiting results Plan - Continue current hypothyroidism medication regimen and schedule repeat TSH testing. - For diabetes management, a referral to an grading supervisor is recommended to ensure tighter glycemic control. The patient's current regimen will be continued, emphasizing consistent dietary patterns. - Migraine management includes continuing topiramate for prevention and prescribing naratriptan for acute relief as needed. - ADHD medication regimen is currently restricted by dosage availability; continue as prescribed and adjust based on future pharmacy supply conditions. - Assure the patient about the benign nature of the lipoma, and monitor for any changes in size, tenderness, or appearance. Consider a surgical consult if needed. - Update and maintain the current medication refills for Humalog and address any outstanding cholesterol therapy needs, with adherence to treatment being discussed. Orders: Orders Thyroid Stimulating Hormone Today E03.9 - Hypothyroidism, unspecified AMB Hemoglobin A1c Today Z13.9 - Encounter for screening, unspecified Free T4 (Free Thyroxine) Today E03.9 - Hypothyroidism, unspecified Medications: New rosuvastatin 5 mg PO BEDTIME 90 tabs 2RF E78.00 - Pure hypercholesterolemia, unspecified Changed From topiramate 300 mg PO BEDTIME E10.65 - Type 1 diabetes mellitus with hyperglycemia To topiramate 300 mg (3 x 100 mg) PO BEDTIME 90 tabs 0RF 30 days E10.65 - Type 1 diabetes mellitus with hyperglycemia Refilled naratriptan do not exceed 2 doses per 24 hrs 2.5 mg PO Q4H PRN 30 tabs 3RF migraine headache 90 days G43.909 - Migraine, unspecified, not intractable, without status migrainosus Discontinued tirzepatide (weight loss) (Zepbound) for 4 weeks Discontinued Reason: Doctor's Order 2.5 mg (0.5 mL) subcut QWEEK 2 mL 1RF E66.9 - Obesity, unspecified tirzepatide (Mounjaro) for 4 weeks Discontinued Reason: Doctor's Order 2.5 mg (0.5 mL) subcut QWEEK 2 mL 0RF
== END 2024-09-01 10:02 | disposition home or self-care (01) ==
PROVIDERS: PCP Internal Medicine; Visit Provider Internal Medicine
DX: E10.65 Type 1 diabetes mellitus with hyperglycemia (principal); E78.00 Pure hypercholesterolemia, unspecified; E03.9 Hypothyroidism, unspecified; F31.9 Bipolar disorder, unspecified; H93.8X1 Other specified disorders of right ear; Z13.9 Encounter for screening, unspecified

== ENCOUNTER 2024-09-01 08:54 | Outpatient (REF) | payer OTHER, SELFPAY ==
[2024-09-01 11:09] LABS: Blood Urea Nitrogen 17 mg/dL (9-16); Estimated Glomerular Filt Rate 46
[2024-09-01 11:27] LABS: Free T4 (Free Thyroxine) 0.92 ng/dL (0.71-1.85); Thyroid Stimulating Hormone 12.17 uIU/mL (0.32-4.0)
== END 2024-09-01 08:55 | disposition home or self-care (01) ==
LOC: HO.LAB 08:54
PROVIDERS: PCP Internal Medicine; Visit Provider Internal Medicine
DX: E10.65 Type 1 diabetes mellitus with hyperglycemia (principal); E78.00 Pure hypercholesterolemia, unspecified; E03.9 Hypothyroidism, unspecified; F31.9 Bipolar disorder, unspecified; H93.8X1 Other specified disorders of right ear; G43.909 Migraine, unspecified, not intractable, without status migrainosus
CPT/HCPCS: 36415; 82565; 83036; 84439; 84443; 84520; 96127

== ENCOUNTER 2024-12-22 07:51 | Outpatient (REF) | payer OTHER, SELFPAY ==
[2024-12-22 09:28] LABS: MANUAL DIFF FLAG NO
--- OUTSIDE RECORDS SUMMARY | 2024-12-22 09:50 | XMS_ITS | Clinical Summary ---
Author Organization [facility] Address [address] [place] [address] Care Team Providers Care Abrasive Sawyer Name Role Phone Bravo Carey MD Primary Care Provider Allergies Active Allergy Reactions Criticality Noted Date [...] EDT Encounter for other specified special examinations [facility]IO DIAGNOSTIC BILATERAL Routine 09/28/2017 2:00 PM EST Breast lump on right side at 4 o'clock position from Last 3 Months or Most Recently Relevant to Health Maintenance Results * (ABNORMAL) Lipid panel (06/23/2018 7:31 AM EDT) Cholesterol 186 0 - 199 mg/dL 06/23/2018 10:03 AM EDT [facility] Triglycerides 69 10 - 200 mg/dL 06/23/2018 10:03 AM EDT [facility] HDL 62.6 >=50.0 mg/dL 06/23/2018 10:03 AM EDT [facility] LDL Calculated 110(H) 0 - 100 mg/dL 06/23/2018 10:03 AM EDT [facility] Cardiac Risk Factor 3.0 0.0 - 4.4 06/23/2018 10:03 AM EDT [facility] Blood specimen (specimen) Venipuncture / Unknown 06/23/2018 7:31 AM EDT 06/23/2018 8:53 AM EDT Narrative [facility] - 06/23/2018 10:03 AM EDT Cardiac Risk Factor: ?Males ? Females 2x Average Risk ?9.6 ?7.1 3x Average Risk ? 23.4 ? 11.0 us Gabriele Maxwell PA-C LAB BLOOD ORDERABLES Zahira magaña Result [facility] [address] [place] [address] * (ABNORMAL) JORGE breast mario diagnostic bilateral [...] description: BI-RADS 4 - Suspicious Carole Messer VACUUM APPLICATOR OPERATOR IMG MAMMOGRAPHY ORDERABLES Fi nal Result from Last 3 Months or Most Recently Relevant to Health Maintenance Additional Health Concerns Infection Onset Date Last Indicated MRSA Comment:MRSA back abscess 12/15/20 CADE; 12/15/2020 12/15/2020 Insurance HPI OTHER Advance Directives For more information, please contact: [phone] * Full Code (Latest Code Status on File) Date Activated Date Inactivated Comments 08/04/2018 6:54 PM 08/09/2018 3:49 AM Care Teams Abrasive Sawyer Relationship Specialty Start Date End Date Bravo Carey MD [address] [place] [id number] PCP - General Internal Medicine 12/15/20
--- OUTSIDE RECORDS SUMMARY | 2024-12-22 09:50 | XMS_ITS | Encounter Summary ---
Author Organization [facility] Address [address] [place] [address] Care Team Providers Care Software Sales Manager Name Role Phone Pcp, No Primary Care Provider Unavailabl e System, Provider Not In MD Primary Care Provider Unavailable Pcp, No Primary Care Provider Unavailabl e Pcp, No Primary Care Provider Unavailabl e Bravo Carey MD Primary Care Provider [phone] Reason for Referral * Diagnostic Imaging (Routine) - Closed Specialty Diagnoses / Procedures Referred By Jenny bailey Referred To Contact Radiology Diagnoses Breast lump on right side at 4 o'clock position Procedures JORGE breast naila diagnostic bilateral JORGE breast naila unilateral right Carole Messer NP [address] [place] [address] Phone: tel: fax: [facility] [address] [facility] [place] [address] Phone: tel: fax: Referral ID Status Reason Start Date Expiration Date Visits Re quested Visits Authorized [id number] Closed 09/22/2017 09/22/2018 1 1 Encounter Details Date Type Department Care Team (Late st Contact Info) Description 09/28/2017 Ancillary Orders [facility] [address] [place] [address] Carole Messer NP [address] [place] [id number] Breast lump on right side at 4 [...] documented as of this encounter Care Teams Software Sales Manager Relationship Specialty [place] [id number] PCP - General 06/05/17 08/15/18 System, [place], [id number] PCP - General 08/16/18 08/31/18 [place] [id number] PCP - General 09/01/18 09/11/18 [place] [id number] PCP - General 09/12/18 12/14/20 PoBravo MD [address] [place] [id number] PCP - General Internal Medicine 12/15/20 documented as of this encounter
--- OUTSIDE RECORDS SUMMARY | 2024-12-22 09:50 | XMS_ITS | Encounter Summary ---
Author Organization [facility] Address [address] [place] [address] Care Team Providers Care Migratory Farm Hand Name Role Phone Pcp, No Primary Care Provider Unavailabl e System, Provider Not In MD Primary Care Provider Unavailable Pcp, No Primary Care Provider Unavailabl e Pcp, No Primary Care Provider Unavailabl e Bravo Carey MD Primary Care Provider [phone] Reason for Referral * Diagnostic (Routine) - Closed Specialty Diagnoses / Procedures Referred By Contac t Referred To Contact Diagnoses Mass Procedures Ultrasound outside imaging Luis Abreu MD [address] [place] [address] Phone: tel: fax: Referral ID Status Reason Start Date Expiration Date Visits Re quested Visits Authorized [id number] Closed 09/22/2017 09/22/2018 1 1 * Diagnostic Imaging (Routine) - Closed Specialty Diagnoses / Procedures Referred By Contac t Referred To Contact Diagnoses Mass Procedures JORGE outside imaging Luis Abreu MD [address] [place] [address] Phone: tel: fax: Referral ID Status Reason Start Date Expiration Date Visits Re quested Visits Authorized [id number] Closed 09/22/2017 09/22/2018 1 1 * Diagnostic Imaging (Routine) - Closed Specialty Diagnoses / Procedures Referred By Contac t Referred To Contact Diagnoses Visit for screening Procedures JORGE outside imaging Luis Abreu MD [address] [place] [address] Phone: tel: fax: Referral ID Status Reason Start Date Expiration Date Visits Re quested Visits Authorized [id number] Closed 09/22/2017 09/22/2018 1 1 * Diagnostic (Routine) - Closed Specialty Diagnoses / Procedures Referred By Contac t Referred To Contact Diagnoses Mass Procedures Ultrasound outside imaging Luis Abreu MD [address] [place] [address] Phone: tel: fax: Referral ID Status Reason Start Date Expiration Date Visits Re quested Visits Authorized [id number] Closed 09/22/2017 09/22/2018 1 1 Encounter Details Date Type Department Care Team (Late st Contact Info) Description 09/22/2017 Ancillary Orders [address] [address] Luis Abreu MD [address] [place] [address] Mass; Visit for screening Social History Tobacco [...] contain a result. us Luis Abreu MD [facility] [place] Final Res ult * JORGE outside imaging (09/22/2017 11:00 AM EST) Rafaela Calderon - 09/22/2017 11:00 AM EST This order has been auto-finalized and does not contain a result. Result [facility] Luis Abreu MD [facility] [place] ORDERABLES Final Result * JORGE outside imaging (09/22/2017 10:57 AM EST) Rafaela Calderon - 09/22/2017 10:57 AM EST This order has been auto-finalized and does not contain a result. Result [facility] Luis Abreu MD [facility] ORDERAB[place] Final Result * Ultrasound outside imaging (09/22/2017 10:52 AM EST) Rafaela Calderon - 09/22/2017 10:52 AM EST This order has been auto-finalized and does not contain a result. Result [facility] Luis Abreu MD [facility] [place] ORDER[place]LES Final Res ult documented in this encounter Visit Diagnoses Diagnosis Mass Localized superficial swelling, mass, or lump Visit for screening documented in this encounter Additional Health Concerns Infection Onset Date Last Indicated Resolved Time MRSA Comment:MRSA back abscess 12/15/20 CADE; 12/15/2020 12/15/2020 documented as of this encounter Care Teams Migratory Farm Hand Relationship Specialty [place] [id number] PCP - General 06/05/17 08/15/18 System, [place], [id number] PCP - General 08/16/18 08/31/18 [place] [id number] PCP - General 09/01/18 09/11/18 [place] [id number] PCP - General 09/12/18 12/14/20 Bravo Carey MD [address] [place] [address] [id number] PCP - General Internal Medicine 12/15/20 documented as of this encounter
--- OUTSIDE RECORDS SUMMARY | 2024-12-22 09:50 | XMS_ITS | Encounter Summary ---
Author Organization [facility] Address [address] [place] [address] Care Team Providers Care Activity Therapy Specialist Name Role Phone Pcp, No Primary Care Provider Unavailabl e System, Provider Not In MD Primary Care Provider Unavailable Pcp, No Primary Care Provider Unavailabl e Pcp, No Primary Care Provider Unavailabl e Bravo Carey MD Primary Care Provider [phone] Reason for Referral * Diagnostic (Routine) - Closed Specialty Diagnoses / Procedures Referred By Contmartha bailey Referred To Contact Radiology Procedures Ultrasound breast right Ultrasound guided breast biopsy right Yolande Price MD PhD [address] [place] [address] Phone: tel: Referral ID Status Reason Start Date Expiration Date Visits Re quested Visits Authorized [id number] Closed 10/08/2017 10/08/2018 1 1 Encounter Details Date Type Department Care Team (Late st Contact Info) Description 10/08/2017 Ancillary Orders [facility] [address] [place] [phone] Yolande Price MD PhD [address] [address] Large mass of right breast Social History [...] documented as of this encounter Care Teams Activity Therapy Specialist Relationship Specialty Start [place] [id number] PCP - General 06/05/17 08/15/18 System, [place], [id number] PCP - General 08/16/18 08/31/18 [place] [id number] PCP - General 09/01/18 09/11/18 [place] [id number] PCP - General 09/12/18 12/14/20 Bravo Carey MD [address] [place] [address] PCP - General Internal Medicine 12/15/20 documented as of this encounter
--- OUTSIDE RECORDS SUMMARY | 2024-12-22 09:50 | XMS_ITS | Encounter Summary ---
Author Organization [facility] Address [address] [place] [address] Care Team Providers Care Wearing Apparel Folder Name Role Phone Pcp, No Primary Care Provider Unavailabl e System, Provider Not In MD Primary Care Provider Unavailable Pcp, No Primary Care Provider Unavailabl e Pcp, No Primary Care Provider Unavailabl e Bravo Carey MD Primary Care Provider [phone] Reason for Referral * Diagnostic (Routine) - Closed Specialty Diagnoses / Procedures Referred By Jenny bailey Referred To Contact Radiology Diagnoses Follow up Procedures Ultrasound guided percutaneoUltrasound aspiration breast right Ultrasound breast right Yolande Price MD PhD [address] [place] [address] Phone: tel: Referral ID Status Reason Start Date Expiration Date Visits Re quested Visits Authorized [id number] Closed 10/15/2017 10/15/2018 1 1 Encounter Details Date Type Department Care Team (Late st Contact Info) Description 10/15/2017 Ancillary Orders [facility] [address] [place] [address] Yolande Price MD PhD [address] [place] [address] Follow up Social History Tobacco Use Types [...] documented as of this encounter Care Teams Wearing Apparel Folder Relationship Specialty Start [place] [id number] PCP - General 06/05/17 08/15/18 System, [place], [id number] PCP - General 08/16/18 08/31/18 [place] [id number] PCP - General 09/01/18 09/11/18 [place] [id number] PCP - General 09/12/18 12/14/20 Bravo Carey MD [address] [place] [address] PCP - General Internal Medicine 12/15/20 documented as of this encounter
--- OUTSIDE RECORDS SUMMARY | 2024-12-22 09:50 | XMS_ITS | Encounter Summary ---
Author Organization [facility] Address [address] [place] [address] Care Team Providers Care Marketing Research Coordinator Name Role Phone Pcp, No Primary Care Provider Unavailabl e System, Provider Not In MD Primary Care Provider Unavailable Pcp, No Primary Care Provider Unavailabl e Pcp, No Primary Care Provider Unavailabl e Bravo Carey MD Primary Care Provider [phone] Encounter Details Date Type Department Care Team (Late st Contact Info) Description 06/23/2018 Lab Requisition [address] [address] Gabriele Maxwell PA-C [address] [place] [address], [address] [place] [phone] Encounter for other specified special examinations Social [...] - 1.76 ng/dL 06/23/2018 2:37 PM EDT [facility] Blood specimen (specimen) Venipuncture / Unknown 06/23/2018 7:31 AM EDT 06/23/2018 8:53 AM EDT us Gabriele Maxwell PA-C LAB BLOOD ORDERABLES Zahira l Result [facility] [address] [place] [address] * (ABNORMAL) Urine Complete (06/23/2018 7:31 AM EDT) Clarity, UA Slightly Cloudy(A) Clear 06/23/2018 9:05 AM EDT [facility] Color Yellow Yellow 06/23/2018 9:05 AM EDT [facility] Specific [place] 1.021 1.005 - 1.030 06/23/2018 9:05 AM EDT [facility] pH 7.0 5.0 - 7.0 06/23/2018 9:05 AM EDT [facility] Protein Negative Negative mg/dL 06/23/2018 9:05 AM EDT [facility] Glucose 150(A) Negative mg/dL 06/23/2018 9:05 AM EDT [facility] Ketones Negative Negative mg/dL 06/23/2018 9:05 AM EDT [facility] Blood 0.03(A) Negative mg/dL 06/23/2018 9:05 AM EDT [facility] Bilirubin UA Negative Negative mg/dL 06/23/2018 9:05 AM T [facility] Urobilinogen Normal Normal mg/dL 06/23/2018 9:05 AM [facility] Nitrite Negative Negative 06/23/2018 9:05 AM T [facility] Leukocyte Esterase Negative Negative Conchis/uL 06/23/2018 9:05 AM T [facility] WBC 3-5(A) 0 - 2 HPF 06/23/2018 9:05 AM [facility] RBC 0-2 0 - 2 HPF 06/23/2018 9:05 AM [facility] Squam Epithelial Moderate(A) Few HPF 018 9:05 AM [facility] Mucus Few Few HPF 06/23/2018 9:05 AM [facility] Urine specimen (specimen) Urine specimen obtained by clean catch procedure / Unknown Collection / Unknown 06/23/2018 7:31 AM EDT 06/23/2018 8:47 AM EDT us Gabriele Maxwell PA-C URINE ORDERABLES Final Re sult [facility] [address] [place] [id number] * Microalbumin Urine, Random (06/23/2018 7:31 AM EDT) Microalb, Ur <1.2 0.0 - 1.9 mg/dL 06/23/2018 3:00 PM EDT [facility] Creatinine, Ur 221.5 mg/dL 06/23/2018 3:00 PM EDT [facility] Microalb Creat Ratio 0.00 - 24.90 mcg/mg 06/23/2018 3:00 PM EDT [facility] Comment:Ratio not calculated due to Microalbumin <1.2 mg/dl Urine specimen (specimen) Collection / Unknown 06/23/2018 7:31 AM EDT 06/23/2018 8:48 AM EDT us Gabriele Maxwell PA-C URINE ORDERABLES Final Re sult [facility] [address] [place], [place] * (ABNORMAL) TSH (06/23/2018 7:31 AM EDT) TSH 17.070(H) 0.350 - 5.500 uIU/mL 06/23/2018 9:52 AM EDT [facility] Blood specimen (specimen) Venipuncture / Unknown 06/23/2018 7:31 AM EDT 06/23/2018 8:55 AM EDT us Gabriele Maxwell PA-C LAB BLOOD ORDERABLES Zahira l Result Performing Organization Address City/[facility]/ZIP Co de Phone Number [facility] [address] [place] [address] * (ABNORMAL) Comprehensive metabolic panel (06/23/2018 7:31 AM EDT) Pathologist [facility] Sodium 141 137 - 147 mEq/L 06/23/2018 10:51 AM [facility] Potassium 3.6 3.5 - 5.4 mEq/L 06/23/2018 10:51 AM [facility] Chloride 103 96 - 107 mEq/L 06/23/2018 10:51 AM T [facility] CO2 22(L) 24 - 34 mEq/L 06/23/2018 10:51 AM [facility] Anion Gap 16(H) 4 - 15 mEq/L 06/23/2018 10:51 AM [facility] Glucose 34(LL) 70 - 100 mg/dL 06/23/2018 10:51 AM [facility] Comment:Checked by repeat an alysis. Creatinine 0.91 0.50 - 1.30 mg/dL 06/23/2018 10:51 AM [facility] eGFR >60 60 - 115 mL/min 06/23/2018 10:51 AM T [facility] BUN 12 6 - 26 mg/dL 06/23/2018 10:51 AM [facility] Calcium 9.1 8.7 - 10.5 mg/dL 06/23/2018 10:51 AM [facility] Total Protein 7.4 6.4 - 8.6 g/dL 06/23/2018 10:51 AM [facility] Albumin 4.5 3.4 - 4.8 g/dL 06/23/2018 10:51 AM [facility] A/G Ratio 1.6 1.0 - 2.3 06/23/2018 10:51 AM [facility] Total Bilirubin 0.3 0.2 - 1.2 mg/dL 06/23/2018 10:51 AM [facility] AST 24 0 - 40 U/L 06/23/2018 10:51 AM [facility] Alkaline Phosphatase 72 40 - 150 IU/L 06/23/2018 10:51 AM [facility] ALT 19 0 - 45 U/L 06/23/2018 10:51 AM [facility] Blood specimen (specimen) Venipuncture / Unknown 06/23/2018 7:31 AM EDT 06/23/2018 8:53 AM EDT us Gabriele Maxwell PA-C LAB BLOOD ORDERABLES Zahira magaña Result [facility] [address] [place] [address] * (ABNORMAL) Lipid panel (06/23/2018 7:31 AM EDT) Cholesterol 186 0 - 199 mg/dL 06/23/2018 10:03 AM T [facility] Triglycerides 69 10 - 200 mg/dL 06/23/2018 10:03 AM T [facility] HDL 62.6 >=50.0 mg/dL 06/23/2018 10:03 AM T [facility] LDL Calculated 110(H) 0 - 100 mg/dL 06/23/2018 10:03 AM EDT [facility] Cardiac Risk Factor 3.0 0.0 - 4.4 06/23/2018 10:03 AM EDT [facility] Blood specimen (specimen) Venipuncture / Unknown 06/23/2018 7:31 AM EDT 06/23/2018 8:53 AM EDT Narrative [facility] - 06/23/2018 10:03 AM EDT Cardiac Risk Factor: ?Males ? Females 2x Average Risk ?9.6 ?7.1 3x Average Risk ? 23.4 ? 11.0 us Gabriele Maxwell PA-C LAB BLOOD ORDERABLES Zahira magaña Result Performing Organization Address City/State/[facility] Co de Phone Number [facility] [address] [place] [address] documented in this encounter Visit Diagnoses Diagnosis Encounter for other specified special examinations documented in this encounter Additional Health Concerns Infection Onset Date Last Indicated Resolved Time MRSA Comment:MRSA back abscess 12/15/20 CADE; 12/15/2020 12/15/2020 documented as of this encounter Care Teams Marketing Research Coordinator Relationship Specialty Start [place] [id number] PCP - General 06/05/17 08/15/18 System, [place], [id number] PCP - General 08/16/18 08/31/18 [place] [id number] PCP - General 09/01/18 09/11/18 [place] [id number] PCP - General 09/12/18 12/14/20 Bravo Carey MD [address] [place] [address] PCP - General Internal Medicine 12/15/20 documented as of this encounter
--- OUTSIDE RECORDS SUMMARY | 2024-12-22 09:50 | XMS_ITS | Encounter Summary ---
Author Organization [facility] Address [address] [place] [address] Care Team Providers Care Agricultural Extension Officer Name Role Phone Pcp, No Primary Care Provider Unavailabl e System, Provider Not In MD Primary Care Provider Unavailable Pcp, No Primary Care Provider Unavailabl e Pcp, No Primary Care Provider Unavailabl e Bravo Carey MD Primary Care Provider [phone] Encounter Details Date Type Department Care Team (Late st Contact Info) Description 09/22/2017 Ancillary Orders [facility] [address] [place] [address] Carole Messer NP [address] [place] [phone] Breast lump on right side at 4 [...] documented as of this encounter Care Teams Agricultural Extension Officer Relationship Specialty Start [place] [id number] PCP - General 06/05/17 08/15/18 System, [place] [id number] PCP - General 08/16/18 08/31/18 [place] [id number] PCP - General 09/01/18 09/11/18 [place] [id number] PCP - General 09/12/18 12/14/20 Bravo Carey MD [address] [place] [address] PCP - General Internal Medicine 12/15/20 documented as of this encounter
--- OUTSIDE RECORDS SUMMARY | 2024-12-22 09:50 | XMS_ITS | Encounter Summary ---
Author Organization [facility] Address [address] [place] [address] Care Team Providers Care Consumer Marketing Manager Name Role Phone Bravo Carey MD Primary Care Provider [phone] Encounter Details Date Type Department Care Team (Late st Contact Info) Description 05/07/2023 Pharmacy Visit [facility] [address] [place] [phone] Social History Tobacco Use Types Packs/Day [...] documented as of this encounter Care Teams Consumer Marketing Manager Relationship Specialty Start Date End Date Bravo Carey MD [address] [place] [address] PCP - General Internal Medicine 12/15/20 documented as of this encounter
--- OUTSIDE RECORDS SUMMARY | 2024-12-22 09:50 | XMS_ITS | Encounter Summary ---
Author Organization [facility] Address [address] [place] [address] Care Team Providers Care Career Professional Name Role Phone Pcp, No Primary Care Provider Unavailabl e System, Provider Not In MD Primary Care Provider Unavailable Pcp, No Primary Care Provider Unavailabl e Pcp, No Primary Care Provider Unavailabl e Bravo Carey MD Primary Care Provider [phone] Reason for Referral * Diagnostic Imaging (Routine) - Closed Specialty Diagnoses / Procedures Referred By Contac t Referred To Contact Radiology Diagnoses Breast mass, right Procedures Mammo post biopsy right Yolande Price MD PhD [address] [place] [address] Phone: tel: Referral ID Status Reason Start Date Expiration Date Visits Re quested Visits Authorized [id number] Closed 10/08/2017 10/08/2018 1 1 Encounter Details Date Type Department Care Team ([facility] st Contact Info) Description 10/08/2017 Ancillary Orders [facility] [address] [place] [address] Yolande Price MD PhD [address] [place] [phone] Breast mass, right Social History Tobacco Use [...] documented as of this encounter Care Teams Career Professional Relationship Specialty Start [place] [id number] PCP - General 06/05/17 08/15/18 System, [place], [id number] PCP - General 08/16/18 08/31/18 [place] [id number] PCP - General 09/01/18 09/11/18 [place] [id number] PCP - General 09/12/18 12/14/20 Bravo Carey MD [address] [place] [address] PCP - General Internal Medicine 12/15/20 documented as of this encounter
--- OUTSIDE RECORDS SUMMARY | 2024-12-22 09:50 | XMS_ITS | Encounter Summary ---
Author Organization [facility] Address [address] [place] [address] Care Team Providers Care Parts Cataloger Name Role Phone Bravo Carey MD Primary Care Provider [phone] Encounter Details Date Type Department Care Team (Late st Contact Info) Description 06/25/2022 Procedure Pass [address] [address] Social History Tobacco Use Types [...] documented as of this encounter Care Teams Parts Cataloger Relationship Specialty Start Date End Date Bravo Carey MD [address] [place] [address] PCP - General Internal Medicine 12/15/20 documented as of this encounter
--- OUTSIDE RECORDS SUMMARY | 2024-12-22 09:50 | XMS_ITS | Encounter Summary ---
Author Organization [facility] Address [address] [place] [address] Care Team Providers Care Wet End Operator Name Role Phone Bravo Carey MD Primary Care Provider [phone] Encounter Details Date Type Department Care Team (Late st Contact Info) Description 05/08/2023 Pharmacy Visit [facility] [address] [place] [phone] Social History Tobacco Use Types Packs/Day [...] documented as of this encounter Care Teams Wet End Operator Relationship Specialty Start Date End Date Bravo Carey MD [address] [place] [address] PCP - General Internal Medicine 12/15/20 documented as of this encounter
--- OUTSIDE RECORDS SUMMARY | 2024-12-22 09:50 | XMS_ITS | Clinical Summary ---
Author Organization [facility] Address [address] [facility] [address] [place] [address] Phone Care Team Providers Care Jig Mill Operator Name Role Phone Pcp, Unknown Primary Care [...] Medical Devices Not on file Care Teams Jig Mill Operator Relationship Specialty Start Date End Date Pcp, Unknown PCP - General 12/12/19 Additional Source Comments The information contained in this document represents components of the legal health record. It is not the complete legal health record.[facility]
[2024-12-22 09:54] LABS: Basophils Percent Auto 0.4 % (0-2); Eosinophils Absolute Auto 0.3 X10*3/uL (0.0-0.4); Eosinophils Percent Auto 3.6 % (0-4); Hematocrit 40.3 % (37.0-47.0); Hemoglobin 13.5 g/dl (12.0-16.0); Imm Gran Abs Auto 0.02 X10*3/uL (0.00-0.03); Imm Gran Pct Auto 0.3 % (0.0-0.4); Lymphocytes Absolute Auto 1.9 X10*3/uL (1.2-4.9); Lymphocytes Percent Auto 26.4 % (20-40); Mean Corpuscular HGB Conc 33.5 g/dl (31.0-35.0); Mean Corpuscular Hemoglobin 28.5 pg (27.0-33.0); Mean Corpuscular Volume 85.2 fL (80.0-98.0); Mean Platelet Volume 10.6 fL (9.4-12.3); Monocytes Absolute Auto 0.4 X10*3/uL (0.1-1.2); Neutrophils Absolute Auto 4.6 x10*3/uL (2.0-8.3); Neutrophils Percent Auto 63.3 % (45-73); Platelet Count 279 X10*3/uL (160-400); Red Blood Count 4.73 X10*6/uL (4.20-5.50); Red Cell Distribution Width 12.9 % (11.0-16.0); White Blood Count 7.2 X10*3/uL (4.8-10.8)
[2024-12-22 10:41] LABS: Creatinine Urine 199.52 mg/dL
[2024-12-22 11:04] LABS: Carbamazepine Tegretol < 2.0 mcg/mL (5.0-12.0)
[2024-12-22 11:09] LABS: Alanine Aminotransferase 18 U/L (0-31); Albumin Level 3.9 g/dL (3.5-5.0); Alkaline Phosphatase 101 U/L (39-117); Anion Gap 13 (12-20); Aspartate Amino Transferase 26 U/L (5-31); Bilirubin Total 0.3 mg/dL (0.0-1.0); Blood Urea Nitrogen 9 mg/dL (9-16); Calcium 8.8 mg/dL (8.4-10.2); Carbon Dioxide 25 mmol/L (22-29); Chloride 104 mmol/L (96-108); Estimated Glomerular Filt Rate > 60; Glucose Random 209 mg/dL (60-115); Potassium 3.9 mmol/L (3.3-5.1); Sodium 138 mmol/L (135-145); Total Protein 6.4 g/dL (6.5-8.0)
[2024-12-22 11:15] LABS: Free T4 (Free Thyroxine) 0.69 ng/dL (0.71-1.85); Thyroid Stimulating Hormone 0.33 uIU/mL (0.32-4.0)
== END 2024-12-22 07:52 | disposition home or self-care (01) ==
LOC: HO.LAB 07:51
PROVIDERS: PCP Internal Medicine; Visit Provider Internal Medicine
DX: E10.65 Type 1 diabetes mellitus with hyperglycemia (principal); E03.9 Hypothyroidism, unspecified; E78.00 Pure hypercholesterolemia, unspecified; F31.9 Bipolar disorder, unspecified; E66.9 Obesity, unspecified; Z68.32 Body mass index [BMI] 32.0-32.9, adult; N28.9 Disorder of kidney and ureter, unspecified; M67.80 Other specified disorders of synovium and tendon, unspecified site
CPT/HCPCS: 36415; 80053; 80156; 82570; 83036; 84439; 84443; 85025; 96127

== ENCOUNTER 2024-12-22 07:51 | Outpatient (AMB) | payer OTHER, SELFPAY ==
--- OUTSIDE RECORDS SUMMARY | 2024-12-22 07:55 | XMS_ITS | Encounter Summary ---
Author Organization Formerly [facility] Address [address] [place] [address] Care Team Providers Care Slate Picker Name Role Phone Pcp, No Primary Care Provider Unavailabl e System, Provider Not In MD Primary Care Provider Unavailable Pcp, No Primary Care Provider Unavailabl e Pcp, No Primary Care Provider Unavailabl e Bravo Carey MD Primary Care Provider [phone] Encounter Details Date Type Department Care Team (Late st Contact Info) Description 06/23/2018 Lab Requisition [address] [address] Gabriele Maxwell PA-C [address] [place] [address], [address] [place] [phone] Encounter for other specified special examinations Social History Tobacco Use Types Packs/Day Years Used Date Smoking Tobacco: Former Cigarettes Q uit: 2010 Smokeless Tobacco: Never Alcohol Use Standard Drinks/Week Comments No 0 (1 standard drink = 0.6 oz pur e alcohol) sober since 01/16/2009 Comments No Sex and Gender Information Value Date Recorded Sex Assigned at Female 06/23/2023 5:48 PM EDT Legal Sex Female 5:34 PM EDT Gender Identity Female 06/23/2023 5:48 PM EDT Sexual Orientation Not on file documented as of this encounter Plan of Treatment Not on file documented as of this encounter Procedures Procedure Name Priority Date/Time Associated Diagnosis Comments MICROALBUMIN WITH CREAT, RANDOM URINE Routine 06/23/2018 7:31 AM EDT Encounter for other specified special examinations URINE COMPLETE Routine 06/23/2018 7:31 AM EDT Encounter for other specified special examinations TSH WITH REFLEX TO FREE T4 Routine 06/23/2018 7:31 AM EDT Encounter for other specified special examinations T4, FREE Routine 06/23/2018 7:31 AM EDT Encounter for other specified special examinations LIPID PANEL Routine 06/23/2018 7:31 AM EDT Encounter for other specified special examinations COMPREHENSIVE METABOLIC PANEL Routine 06/23/2018 7:31 AM EDT Encounter for other specified special examinations documented in this encounter Results * T4, Free (06/23/2018 7:31 AM EDT) Free T4 1.23 0.89 - 1.76 ng/dL 06/23/2018 2:37 PM EDT [facility] Blood specimen (specimen) Venipuncture / Unknown 06/23/2018 7:31 AM EDT 06/23/2018 8:53 AM EDT us Gabriele Maxwell PA-C LAB BLOOD ORDERABLES Zahira l Result [facility] [address] [place] [address] * (ABNORMAL) Urine Complete (06/23/2018 7:31 AM EDT) Clarity, UA Slightly Cloudy(A) Clear 06/23/2018 9:05 AM EDT [facility] Color Yellow Yellow 06/23/2018 9:05 AM EDT [facility] Specific [place] 1.021 1.005 - 1.030 06/23/2018 9:05 AM EDT [facility] pH 7.0 5.0 - 7.0 06/23/2018 9:05 AM EDT [facility] Protein Negative Negative mg/dL 06/23/2018 9:05 AM EDT [facility] Glucose 150(A) Negative mg/dL 06/23/2018 9:05 AM EDT [facility] Ketones Negative Negative mg/dL 06/23/2018 9:05 AM EDT [facility] Blood 0.03(A) Negative mg/dL 06/23/2018 9:05 AM EDT [facility] Bilirubin UA Negative Negative mg/dL 06/23/2018 9:05 AM T [facility] Urobilinogen Normal Normal mg/dL 06/23/2018 9:05 AM [facility] Nitrite Negative Negative 06/23/2018 9:05 AM T [facility] Leukocyte Esterase Negative Negative [place]/uL 06/23/2018 9:05 AM T [facility] WBC 3-5(A) 0 - 2 HPF 06/23/2018 9:05 AM [facility] RBC 0-2 0 - 2 HPF 06/23/2018 9:05 AM [facility] Squam Epithelial Moderate(A) Few HPF 018 9:05 AM [facility] Mucus Few Few HPF 06/23/2018 9:05 AM [facility] Urine specimen (specimen) Urine specimen obtained by clean catch procedure / Unknown Collection / Unknown 06/23/2018 7:31 AM EDT 06/23/2018 8:47 AM EDT us Gabriele Maxwell PA-C URINE ORDERABLES Final Re sult [facility] [address] [id number] * Microalbumin Urine, Random (06/23/2018 7:31 AM EDT) Microalb, Ur <1.2 0.0 - 1.9 mg/dL 06/23/2018 3:00 PM EDT [facility] Creatinine, Ur 221.5 mg/dL 06/23/2018 3:00 PM EDT [facility] Microalb Creat Ratio 0.00 - 24.90 mcg/mg 06/23/2018 3:00 PM EDT [facility] Comment:Ratio not calculated due to Microalbumin <1.2 mg/dl Urine specimen (specimen) Collection / Unknown 06/23/2018 7:31 AM EDT 06/23/2018 8:48 AM EDT us Gabriele Maxwell PA-C URINE ORDERABLES Final Re sult [facility] [address] [place], [place] * (ABNORMAL) TSH (06/23/2018 7:31 AM EDT) TSH 17.070(H) 0.350 - 5.500 uIU/mL 06/23/2018 9:52 AM EDT [facility] Blood specimen (specimen) Venipuncture / Unknown 06/23/2018 7:31 AM EDT 06/23/2018 8:55 AM EDT us Gabriele Maxwell PA-C LAB BLOOD ORDERABLES Zahira l Result Performing Organization Address City/[facility]/ZIP Co de Phone Number [facility] [address] [place] [id number] * (ABNORMAL) Comprehensive metabolic panel (06/23/2018 7:31 AM EDT) Pathologist [facility] Sodium 141 137 - 147 mEq/L 06/23/2018 10:51 AM [facility] Potassium 3.6 3.5 - 5.4 mEq/L 06/23/2018 10:51 AM [facility] Chloride 103 96 - 107 mEq/L 06/23/2018 10:51 AM T [facility] CO2 22(L) 24 - 34 mEq/L 06/23/2018 10:51 AM [facility] Anion Gap 16(H) 4 - 15 mEq/L 06/23/2018 10:51 AM [facility] Glucose 34(LL) 70 - 100 mg/dL 06/23/2018 10:51 AM [facility] Comment:Checked by repeat an alysis. Creatinine 0.91 0.50 - 1.30 mg/dL 06/23/2018 10:51 AM [facility] eGFR >60 60 - 115 mL/min 06/23/2018 10:51 AM T [facility] BUN 12 6 - 26 mg/dL 06/23/2018 10:51 AM [facility] Calcium 9.1 8.7 - 10.5 mg/dL 06/23/2018 10:51 AM [facility] Total Protein 7.4 6.4 - 8.6 g/dL 06/23/2018 10:51 AM [facility] Albumin 4.5 3.4 - 4.8 g/dL 06/23/2018 10:51 AM [facility] A/G Ratio 1.6 1.0 - 2.3 06/23/2018 10:51 AM [facility] Total Bilirubin 0.3 0.2 - 1.2 mg/dL 06/23/2018 10:51 AM [facility] AST 24 0 - 40 U/L 06/23/2018 10:51 AM [facility] Alkaline Phosphatase 72 40 - 150 IU/L 06/23/2018 10:51 AM [facility] ALT 19 0 - 45 U/L 06/23/2018 10:51 AM [facility] Blood specimen (specimen) Venipuncture / Unknown 06/23/2018 7:31 AM EDT 06/23/2018 8:53 AM EDT us Gabriele Maxwell PA-C LAB BLOOD ORDERABLES Zahira magaña Result [facility] [address] [place] [address] * (ABNORMAL) Lipid panel (06/23/2018 7:31 AM EDT) Cholesterol 186 0 - 199 mg/dL 06/23/2018 10:03 AM T [facility] Triglycerides 69 10 - 200 mg/dL 06/23/2018 10:03 AM T [facility] HDL 62.6 >=50.0 mg/dL 06/23/2018 10:03 AM T [facility] LDL Calculated 110(H) 0 - 100 mg/dL 06/23/2018 10:03 AM EDT [facility] Cardiac Risk Factor 3.0 0.0 - 4.4 06/23/2018 10:03 AM EDT [facility] Blood specimen (specimen) Venipuncture / Unknown 06/23/2018 7:31 AM EDT 06/23/2018 8:53 AM EDT Narrative [facility] - 06/23/2018 10:03 AM EDT Cardiac Risk Factor: ?Males ? Females 2x Average Risk ?9.6 ?7.1 3x Average Risk ? 23.4 ? 11.0 us Gabriele Maxwell PA-C LAB BLOOD ORDERABLES Zahira magaña Result Performing Organization Address City/State/[facility] Co de Phone Number [facility] [address] [place] [address] documented in this encounter Visit Diagnoses Diagnosis Encounter for other specified special examinations documented in this encounter Additional Health Concerns Infection Onset Date Last Indicated Resolved Time MRSA Comment:MRSA back abscess 12/15/20 CADE; 12/15/2020 12/15/2020 documented as of this encounter Care Teams Slate Picker Relationship Specialty [place] [id number] PCP - General 06/05/17 08/15/18 System, [place], [id number] PCP - General 08/16/18 08/31/18 [place] [id number] PCP - General 09/01/18 09/11/18 [place] [id number] PCP - General 09/12/18 12/14/20 Bravo Carey MD [address] [place] [address] PCP - General Internal Medicine 12/15/20 documented as of this encounter
--- OUTSIDE RECORDS SUMMARY | 2024-12-22 07:55 | XMS_ITS | Data Portability ---
Author Organization [place] - [facility], [facility] Address [address] [place] [id number] Assessment No assessment recorded. Plan of Treatment Reminders Order Date Submit Date Provider Last Modified By Organization Details Last Modified Time Details Appointments None recorded. Lab PPD (purified protein derivative) , skin test 2018 019 [facility] (Lab), [address] [place], [address], 9 07:53:57 Referral None recorded. Procedures None recorded. Surgeries None recorded. Imaging None recorded. Medication Orders Tubersol 5 tub. unit/0.1 mL intradermal injection solution 2018 019 tsullivan 6 Not available 9 14:10:06 Patient TargetsNo targets recorded. Patient InstructionsNo instructions recorded. Reason for Referral None Reported. Results Created Date Observation Date Name Description Value Unit Range Abnormal Flag Note LastModifiedBy Organization Detail LastModifiedTime 01/04/20 19 01/03/2019 PPD (jun fied prote in deriv ative ), skin test TB negati ve Not Available [facility] (Lab) [address] [place], [address], 12/31/2018 09:10:49 Result Notes None recorded. Problems No Known Problems Medical Equipment None Reported. Allergies No known drug allergies Medications Name Sig Start Date Stop Date Status Note LastModified by Organization Details LastModified Time quetiapine 25 mg tablet TK 3-4 TS PO QHS active Not Available Not Available No t Available cyclobenzapr ine 10 mg tablet TK 1 T PO TID PRF MUSCLE SPASMS active Not Available Not Available No t Available ibuprofen 800 mg tablet active Not Available Not Available Not Available Tubersol 5 tub. unit/0.1 mL intradermal injection solution Inject 0.1 mL by intradermal route. 2018 active Not Available Not Available Not Avai lable amoxicillin 500 mg tablet TK 1 T PO TID active Not Available Not Available No t Available levothyroxin e 75 mcg tablet TK 1 T PO QD AND TK 2 TS ON THE WEEKEND ONCE A DAY active Not Available Not Available N ot Available dextroamphet amine-amphet amine 30 mg tablet TK 1 T PO TID active Not Available Not Available No t Available carbamazepin e 200 mg tablet TK 4 TS PO QHS active Not Available Not Available No t Available oxycodone-ac etaminophen 5 mg-325 mg tablet active Not Available Not Available Not Available buspirone 30 mg tablet TK 1 T PO BID active Not Available Not Available No t Available clonazepam 2 mg tablet TK 1 T PO QAM AND 2 TS HS active Not Available Not Available No t Available levofloxacin 750 mg tablet TK 1 T PO QD active Not Available Not Available No t Available ondansetron 4 mg disintegrati ng tablet TK 1 T PO Q 8 H PRN FOR NAUSEA OR VOMITING active Not Available Not Available No t Available ProAir HFA 90 mcg/actuatio n aerosol inhaler INHALE 2 PUFFS PO Q 4 HOURS PRN FOR WHEEZING OR SOB active Not Available Not Available No t Available FreeStyle Lite Strips USE TO TEST BLOOD SUGAR QID active Not Available Not Available No t Available Lantus Solostar U-100 Insulin 100 unit/mL (3 mL) subcutaneous pen INJECT 26 UNITS SC ONCE D active Not Available Not Available No t Available Humalog KwikPen (U-100) Insulin 100 unit/mL subcutaneous INJECT 6 TO 10 UNITS SC TID UTD PER SLIDING SCALE active Not Available Not Available No t Available Vitals None Recorded Social History None recorded. Functional Status None recorded. Mental Status None recorded. Family History Nothing Reported. Medical History No medical history recorded. Gynecological HistoryNo gynecological history recorded. Obstetrics History GPAL:G 0 P 0 0 0 0 Past Encounters Encounter ID Performer Location Encounter Start Date Encounter Closed Date Diagnosis/Indication Diagnosis SNOMED-CT Code Diagnosis ICD10 Code Diagnosis Note [id number] Ava Weiss NP [address] [address] 12/31/2018 09:01:05 12/31/2018 10:40:07 Tuberculosis screening 085497629 Z11.1 Health Concerns Section Related Observation LastModified by Organization Detai ls LastModified Time None Recorded Concern Status LastModified by Organization Details LastModified Time None Recorded Advance Directives Directive None Recorded Payers Encounter Date Sequence Insurance Name Policy Number Policy Miguel Covered Member ID Miguel Member ID Guarantor Name 12/31/2018 [facility] (MOVE TO HOLD) Jesus Kulkarni 0 0 Amy Lee OBGyn Episode No OBEpisode recorded.
--- OUTSIDE RECORDS SUMMARY | 2024-12-22 07:55 | XMS_ITS | Patient Health Record ---
Author Organization [facility] Address [address] [place] [address] Care Team Providers Care Gsa Coordinator Name Role Phone RUI Zaydacarmen Primary Care Provider Unavailabl e Allergies Allergen (clinical drug ingredient) Drug/Non Drug Allergy documented on EMR Reaction Allergy Type Onset Date Status Simvastatin (uncoded) Unknown Allergy Active Reason For [...] Problem Status W/U Status Risk Notes Problem 13295690 Primary hypothyr oidism (E03.9) Active confirmed Problem Hyperglycemia due to type 2 diabetes mellitus (93851216017046 9) Controlled diabetes mellitus with hyperglycemia (E11.65) Active confirmed Problem 267455659 Pure hypercholesterolemia (E78.00) Active confirmed Problem 216852954 Uncontrolled typ e 2 diabetes mellitus with hyperglycemia (E11.65) Active confirmed Plan Of Treatment Future Test Test Name Order Date Creatinine([facility]) 01/22/2021 ALT (SGPT)([facility]) 01/22/2021 AST (SGOT)([facility]) 01/22/2021 Hemoglobin A1C([facility]) 01/22/2021 Insurance Providers Payer Name Payer Address Payer Phone Subscriber Number Group Number Insured Name Patient Relationship to Insured Coverage Start Date Coverage End Date [employer] [address] [place] [address] [phone] [id number] Amy Lee Self - patient is the insured 1 [facility] [address] [place] [address] [phone] [id number] Amy Lee Self - patient is the insured 8 [employer] [facility] [address] [place] [address] [id number] Amy Lee Self - patient is the insured 1 Medical (General) History Surgical History Surgery Date(Month/Year)
--- OUTSIDE RECORDS SUMMARY | 2024-12-22 07:55 | XMS_ITS | Encounter Summary ---
Author Organization Formerly Named [facility] Address [address] [place] [address] Care Team Providers Care Masking Machine Feeder Name Role Phone Bravo Carey MD Primary Care Provider [phone] Encounter Details Date Type Department Care Team (Late st Contact Info) Description 06/25/2022 Procedure Pass [address] [address] Social History Tobacco Use Types Packs/Day Years Used Date Smoking Tobacco: Former Cigarettes Q uit: 2009 Smokeless Tobacco: Never Alcohol Use Standard Drinks/Week [...] on file documented as of this encounter Visit Diagnoses Not on filedocumented in this encounter Additional Health Concerns Infection Onset Date Last Indicated Resolved Time MRSA Comment:MRSA back abscess 12/15/20 CADE; 12/15/2020 12/15/2020 documented as of this encounter Care Teams Masking Machine Feeder Relationship Specialty Start Date End Date Bravo Carye MD [address] [place] [address] PCP - General Internal Medicine 12/15/20 documented as of this encounter
--- OUTSIDE RECORDS SUMMARY | 2024-12-22 07:55 | XMS_ITS | Encounter Summary ---
Author Organization [facility] Address [address] [place] [address] Care Team Providers Care Supervisor Photostat Name Role Phone Pcp, No Primary Care Provider Unavailabl e System, Provider Not In MD Primary Care Provider Unavailable Pcp, No Primary Care Provider Unavailabl e Pcp, No Primary Care Provider Unavailabl e Bravo Carey MD Primary Care Provider [phone] Reason for Referral * Diagnostic (Routine) - Closed Specialty Diagnoses / Procedures Referred By Jenny bailey Referred To Contact Radiology Diagnoses Follow up Procedures Ultrasound guided percutaneoUltrasound aspiration breast right Ultrasound breast right Yolande Price MD PhD [address] [place] [address] Phone: tel: Referral ID Status Reason Start Date Expiration Date Visits Re quested Visits Authorized [id number] Closed 10/15/2017 10/15/2018 1 1 Encounter Details Date Type Department Care Team (Late st Contact Info) Description 10/15/2017 Ancillary Orders [facility] [address] [place] [address] Yolande Price MD PhD [address] [place] [address] Follow up Social History Tobacco Use Types Packs/Day Years [...] on file documented as of this encounter Results * Ultrasound guided percutaneoUltrasound aspiration breast right (10/15/2017 3:13 PM EST) Anatomical Region Laterality Modality Breast Right Ultrasound 10/15/2017 2:29 PM EST Impressions 10/15/2017 3:38 PM EST IMPRESSION: Technically successful right breast fluid aspiration. Narrative 10/15/2017 3:38 PM EST ULTRASOUND-GUIDED RIGHT BREAST FLUID ASPIRATION HISTORY: ?? History of right breast abscess status post I&D FINDINGS: Comparison prior right breast ultrasound 10/08/2017. Target ultrasound was performed of the right breast. At 3 o'clock one cm from the nipple, there is a residual fluid collection which measures up to 2.8 x 1.5 x 3.5 cm with irregular borders. Low level internal echoes. This has decreased in size from 6.0 x 3.3 x 4.4 cm. After discussing the risks, benefits, and alternatives, written consent was obtained from the patient. The patient was prepped and draped in usual sterile fashion. 2% lidocaine was used for local anesthesia. Under ultrasound guidance, an 18-gauge spinal needle was introduced into the fluid collection. Approximately 10 mL of reddish- brown fluid was aspirated. No significant residual fluid on post procedure ultrasound images. The patient tolerated procedure well, with no immediate competitions. Procedure Note Alfred Shafer MD - 10/15/2017 ULTRASOUND-GUIDED RIGHT BREAST FLUID ASPIRATION HISTORY: History of right breast abscess status post I&D FINDINGS: Comparison prior right breast ultrasound 10/08/2017. Target ultrasound was performed of the right breast. At 3 o'clock one cm from the nipple, there is a residual fluid collectionwhich measures up to 2.8 x 1.5 x 3.5 cm with irregular borders. Low levelinternal echoes. This has decreased in size from 6.0 x 3.3 x 4.4 cm. After discussing the risks, benefits, and alternatives, written consentwas obtained from the patient. The patient was prepped and draped in usualsterile fashion. 2% lidocaine was used for local anesthesia. Underultrasound guidance, an 18-gauge spinal needle was introduced into the fluid collection. Approximately 10 mL ofreddish- brown fluid was aspirated. No significant residual fluid on postprocedure ultrasound images. The patient tolerated procedure well, with no immediate competitions. IMPRESSION: Technically successful right breast fluid aspiration. us Yolande Price MD PhD IMG US ORDERABLES Final Res ult documented in this encounter Visit Diagnoses Diagnosis Follow up Follow up documented in this encounter Additional Health Concerns Infection Onset Date Last Indicated Resolved Time MRSA Comment:MRSA back abscess 12/15/20 CADE; 12/15/2020 12/15/2020 documented as of this encounter Care Teams Supervisor Photostat Relationship Specialty Start [place] [id number] PCP - General 06/05/17 08/15/18 System, [place], [id number] PCP - General 08/16/18 08/31/18 [place] [id number] PCP - General 09/01/18 09/11/18 [place] [id number] PCP - General 09/12/18 12/14/20 Bravo Carey MD [address] [place] [address] PCP - General Internal Medicine 12/15/20 documented as of this encounter
--- OUTSIDE RECORDS SUMMARY | 2024-12-22 07:56 | XMS_ITS | Encounter Summary ---
Author Organization [facility] Address [address] [place] [address] Care Team Providers Care Social Security Specialist Name Role Phone Pcp, No Primary Care Provider Unavailabl e System, Provider Not In MD Primary Care Provider Unavailable Pcp, No Primary Care Provider Unavailabl e Pcp, No Primary Care Provider Unavailabl e Bravo Carey MD Primary Care Provider [phone] Reason for Referral * Diagnostic (Routine) - Closed Specialty Diagnoses / Procedures Referred By Contac t Referred To Contact Diagnoses Mass Procedures Ultrasound outside imaging Luis Abreu MD [address] [place] [address] Phone: tel: fax: Referral ID Status Reason Start Date Expiration Date Visits Re quested Visits Authorized [id number] Closed 09/22/2017 09/22/2018 1 1 * Diagnostic Imaging (Routine) - Closed Specialty Diagnoses / Procedures Referred By Contac t Referred To Contact Diagnoses Mass Procedures JORGE outside imaging Luis Abreu MD [address] [place] [address] Phone: tel: fax: Referral ID Status Reason Start Date Expiration Date Visits Re quested Visits Authorized [id number] Closed 09/22/2017 09/22/2018 1 1 * Diagnostic Imaging (Routine) - Closed Specialty Diagnoses / Procedures Referred By Contac t Referred To Contact Diagnoses Visit for screening Procedures JORGE outside imaging Luis Abreu MD [address] [place] [address] Phone: tel: fax: Referral ID Status Reason Start Date Expiration Date Visits Re quested Visits Authorized [id number] Closed 09/22/2017 09/22/2018 1 1 * Diagnostic (Routine) - Closed Specialty Diagnoses / Procedures Referred By Contac t Referred To Contact Diagnoses Mass Procedures Ultrasound outside imaging Luis Abreu MD [address] [place] [address] Phone: tel: fax: Referral ID Status Reason Start Date Expiration Date Visits Re quested Visits Authorized [id number] Closed 09/22/2017 09/22/2018 1 1 Encounter Details Date Type Department Care Team (Late st Contact Info) Description 09/22/2017 Ancillary Orders [address] [address] Luis Abreu MD [address] [place] [phone] Mass; Visit for screening Social History Tobacco Use Types Packs/Day Years Used Date Smoking Tobacco: Never Alcohol Use Standard Drinks/Week Comments No 0 (1 standard drink = 0.6 oz pur e alcohol) Comments Unknown Sex and Gender Information Value Date Recorded Sex Assigned at Female 06/23/2023 5:48 PM EDT Legal Sex Female 5:34 PM EDT Gender Identity Female 06/23/2023 5:48 PM EDT Sexual Orientation Not on file documented as of this encounter Plan of Treatment Not on file documented as of this encounter Results * Ultrasound outside imaging (09/22/2017 11:05 AM EST) Narrative Rafaela Houser - 09/22/2017 11:05 AM EST This order has been auto-finalized and does not contain a result. us Luis Abreu MD [facility] US ORDERABLES Final Res ult * JORGE outside imaging (09/22/2017 11:00 AM EST) Rafaela Calderon - 09/22/2017 11:00 AM EST This order has been auto-finalized and does not contain a result. Result [facility] Luis Abreu MD [facility] MAMMOGRAPHY ORDERABLES Final Result * JORGE outside imaging (09/22/2017 10:57 AM EST) Rafaela Calderon - 09/22/2017 10:57 AM EST This order has been auto-finalized and does not contain a result. Result [facility] Luis Abreu MD [facility] MAMMOGRAPHY ORDERABLES Final Result * Ultrasound outside imaging (09/22/2017 10:52 AM EST) Rafaela Calderon - 09/22/2017 10:52 AM EST This order has been auto-finalized and does not contain a result. Result [facility] Luis Abreu MD [facility] US ORDERABLES Final Res ult documented in this encounter Visit Diagnoses Diagnosis Mass Localized superficial swelling, mass, or lump Visit for screening documented in this encounter Additional Health Concerns Infection Onset Date Last Indicated Resolved Time MRSA Comment:MRSA back abscess 12/15/20 CADE; 12/15/2020 12/15/2020 documented as of this encounter Care Teams Social Security Specialist Relationship Specialty [place] [id number] PCP - General 06/05/17 08/15/18 System, [place], [id number] PCP - General 08/16/18 08/31/18 [place] [id number] PCP - General 09/01/18 09/11/18 [place] [id number] PCP - General 09/12/18 12/14/20 Bravo Carey MD [address] [place] [address] [id number] PCP - General Internal Medicine 12/15/20 documented as of this encounter
--- OUTSIDE RECORDS SUMMARY | 2024-12-22 07:56 | XMS_ITS | Encounter Summary ---
Author Organization [facility] Address [address] [place] [address] Care Team Providers Care Residential Electrician Name Role Phone Pcp, No Primary Care Provider Unavailabl e System, Provider Not In MD Primary Care Provider Unavailable Pcp, No Primary Care Provider Unavailabl e Pcp, No Primary Care Provider Unavailabl e Bravo Carey MD Primary Care Provider [phone] Reason for Referral * Diagnostic Imaging (Routine) - Closed Specialty Diagnoses / Procedures Referred By Contac t Referred To Contact Radiology Diagnoses Breast mass, right Procedures Mammo post biopsy right Yolande Price MD PhD [address] [place] [address] Phone: tel: Referral ID Status Reason Start Date Expiration Date Visits Re quested Visits Authorized [id number] Closed 10/08/2017 10/08/2018 1 1 Encounter Details Date Type Department Care Team ([facility] st Contact Info) Description 10/08/2017 Ancillary Orders [facility] [address] [place] [address] Yolande Price MD PhD [address] [place] [phone] Breast mass, right Social History Tobacco Use Types Packs/Day Years [...] as of this encounter Plan of Treatment Scheduled Orders Name Type Priority Associated Diagnoses Orde r Schedule Mammo post biopsy right Imaging Routine Breast mass, right 1 Occurrences starting 10/08/2017 until 12/06/2018 documented as of this encounter Visit Diagnoses Diagnosis Breast mass, right Lump or mass in breast documented in this encounter Additional Health Concerns Infection Onset Date Last Indicated Resolved Time MRSA Comment:MRSA back abscess 12/15/20 CADE; 12/15/2020 12/15/2020 documented as of this encounter Care Teams Residential Electrician Relationship Specialty [place] [id number] PCP - General 06/05/17 08/15/18 System, [place], [id number] PCP - General 08/16/18 08/31/18 [place] [id number] PCP - General 09/01/18 09/11/18 [place] [id number] PCP - General 09/12/18 12/14/20 Bravo Carey MD [address] [place] [id number] PCP - General Internal Medicine 12/15/20 documented as of this encounter
--- OUTSIDE RECORDS SUMMARY | 2024-12-22 07:56 | XMS_ITS | Clinical Summary ---
Author Organization [facility] Address [address] [place] [address] Care Team Providers Care Gasoline Locomotive Crane Operator Name Role Phone Bravo Carey MD Primary Care Provider [phone] Allergies Active Allergy Reactions Criticality Noted Date Comments Simvastatin Rash Low 06/03/2017 Medications insulin glargine (LANTUS) 100 units/mL vial Inject 24 Units under the skin at bedtime. Active insulin lispro (HumaLOG) 100 units/mL vial Inject 2-12 Units under the skin 3 (three) times a day with meals. Active levothyroxine (SYNTHROID) 75 MCG tablet Take 75 mcg by mouth every morning before breakfast. 75 mcg Thursday thru Thursday 150 mcg on Thursday and Thursday Active amphetamine-dextro amphetamine (ADDERALL XR) 30 MG 24 hr capsule Take 30 mg by mouth 3 (three) times a day. Active clonazePAM (KlonoPIN) 2 MG tablet Take 2 mg by mouth at bedtime. Active carBAMazepine (CARBATROL) 200 MG extended release capsule Take 800 mg by mouth at bedtime. Active topiramate (TOPAMAX) 100 MG tablet Take 100 mg by mouth 3 (three) times a day. Active busPIRone (BUSPAR) 30 MG tablet Take 30 mg by mouth 2 (two) times a day. Active Melatonin 10 MG capsule Take 10 mg by mouth at bedtime. Active albuterol sulfate (VENTOLIN HFA) 108 (90 Base) MCG/ACT inhalation aerosol Inhale 2 puffs every 4 (four) hours as needed for wheezing or shortness of breath. 1 Inhaler 08/07/20 18 Active ondansetron (ZOFRAN ODT) 4 MG disintegrating tablet Take 1 tablet (4 mg total) by mouth every 8 (eight) hours as needed for nausea or vomiting. 10 tablet 08/09/20 18 Active cyclobenzaprine (FLEXERIL) 10 MG tablet Take 1 tablet (10 mg total) by mouth 3 (three) times a day as needed for muscle spasms. 20 tablet 09/12/19 19 Active predniSONE (DELTASONE) 20 MG tablet Take 3 tablets (60 mg total) by mouth daily 21 tablet 06/25/20 22 Active White Petrolatum-Mineral Oil (artificial tears) ophthalmic ointment Administer 1 application to the right eye every 6 (six) hours as needed for dry eyes or irritation 3.5 g 06/25/20 22 Active clonazePAM (KlonoPIN) 2 MG tablet TAKE 1 TABLET EVERY MORNING AND TAKE 2 TABLETS EVERY EVENING. 90 tablet 5 05/08/2023 8:11 AM EDT 05/07/20 23 Active Active Problems Problem Noted Date Diagnosed Date UTI (urinary tract infection) 08/04/2018 Pyelonephritis 08/04/2018 Abscess of right breast 10/08/2017 Overview (10/08/2017): During an office 10/08/2017 Family History Medical History Relation Name Comments Cancer Father Lung ca Emphysema Father Relation Name Status Comments Father Alive Mother Alive Social History Tobacco Use Types Packs/Day Years Used Date Smoking Tobacco: Former Cigarettes Q uit: 2010 Smokeless Tobacco: Never Tobacco Cessation:Counseling Given: No Alcohol Use Standard Drinks/Week Comments No 0 (1 standard drink = 0.6 oz pur e alcohol) sober since 01/16/2009 Comments No Sex and Gender Information Value Date Recorded Sex Assigned at Female 06/23/2023 5:48 PM EDT Legal Sex Female 5:34 PM EDT Gender Identity Female 06/23/2023 5:48 PM EDT Sexual Orientation Not on file Last Filed Vital Signs Vital Sign Reading Time Taken Comments Blood Pressure 124/71 06/23/2023 4:54 PM EDT Pulse 68 06/23/2023 4:54 PM EDT Temperature 36.8 ??C (98.3 ??F) 06/23/2023 4:54 PM ED T Respiratory Rate 16 06/23/2023 4:54 PM EDT Oxygen Saturation 98% 06/23/2023 4:54 PM EDT Inhaled Oxygen Concentration - - Weight 72.6 kg (160 lb) 06/23/2023 4:54 PM EDT Height 157.5 cm (5' 2 ) 06/23/2023 4:54 PM EDT Body Mass Index 29.26 06/23/2023 4:54 PM EDT Plan of Treatment Health Maintenance Due Date Last Done Comments Annual Physical 01/16/1976 Hepatitis B Screening 1991 DTaP,Tdap,and Td Vaccines (1 - Tdap) 01/16/1992 CT Colonography 2018 Colonoscopy 2018 Colorectal Cancer Screening 2018 FIT-DNA 2018 FOBT 2018 Sigmoidoscopy 2018 Breast Cancer Screening 09/29/2018 09/28/2017 Pneumococcal Vaccines 50+ yrs (2 of 2 - PCV) 2023 07/26/2019 Zoster Standard Vaccine (1 of 2) 2023 Cholesterol Screening 06/23/2023 06/23/2018 COVID-19 Vaccine ( - season) 2024 06/03/2022, 09/05/2021, 10/26/2020, Additional history exists Influenza Vaccine (#1) 2024 06/03/2022, 2020 HIB Vaccines Aged Out No longer eligi ble based on patient's age to complete this topic Hepatitis A Vaccine Aged Out No longe r eligible based on patient's age to complete this topic Procedures Procedure Name Priority Date/Time Associated Diagnosis Comments LIPID PANEL Routine 06/23/2018 7:31 AM EDT Encounter for other specified special examinations [facility] DIAGNOSTIC BILATERAL Routine 09/28/2017 2:00 PM EST Breast lump on right side at 4 o'clock position from Last 3 Months or Most Recently Relevant to Health Maintenance Results * (ABNORMAL) Lipid panel (06/23/2018 7:31 AM EDT) Cholesterol 186 0 - 199 mg/dL 06/23/2018 10:03 AM EDT [facility] Triglycerides 69 10 - 200 mg/dL 06/23/2018 10:03 AM EDT [facility] HDL 62.6 >=50.0 mg/dL 06/23/2018 10:03 AM EDT [facility] LDL Calculated 110(H) 0 - 100 mg/dL 06/23/2018 10:03 AM EDT [facility] Cardiac Risk Factor 3.0 0.0 - 4.4 06/23/2018 10:03 AM EDT [facility] Blood specimen (specimen) Venipuncture / Unknown 06/23/2018 7:31 AM EDT 06/23/2018 8:53 AM EDT Narrative [facility] - 06/23/2018 10:03 AM EDT Cardiac Risk Factor: ?Males ? Females 2x Average Risk ?9.6 ?7.1 3x Average Risk ? 23.4 ? 11.0 us Gabriele Maxwell PA-C LAB BLOOD ORDERABLES Zahira magaña Result [facility] [address] [place] [address] * (ABNORMAL) JORGE breast mario diagnostic bilateral (09/28/2017 2:00 PM EST) Anatomical Region Laterality Modality Bilateral Mammography 09/28/2017 2:48 PM EST Impressions 09/28/2017 3:13 PM EST IMPRESSION: Sonographic and mammographic findings in the area of clinical interest concerning for malignancy. No clearly abnormal right axillary lymph nodes. Recommendations and findings discussed with the patient time of examination. All patient questions answered RECOMMENDATION: Biopsy A letter explaining the recommendations will be given to the patient. The patient's information was entered into a reminder system with a target due date for the next mammogram. BI-RADS description: BI-RADS 4 - Suspicious ?? Narrative 09/28/2017 3:13 PM EST COMPARISON: ??2017 HISTORY: New palpable area right breast. Screening evaluation left breast. MAMMOGRAPHIC TECHNIQUE: Bilateral full field Digital Breast Tomosynthesis examination was performed with 2-D and 3-D acquisitions. This examination was reviewed with the aid of the R2 computer-aided detection. A triangular skin marker was placed in the area of clinical interest MAMMOGRAPHIC FINDINGS: Breast Density: Heterogeneously dense ??This may lower the sensitivity of mammography. There is a new masslike asymmetry in the inferior medial right breast. There is no dominant mass in the left breast. Bilaterally no suspicious cluster of microcalcifications or architectural distortion. SONOGRAPHIC TECHNIQUE: Targeted sonography is performed in the area of clinical interest, the 3 o'clock position. Sonography is performed in the axilla SONOGRAPHIC FINDINGS: In the area of clinical interest, the 3 o'clock position, approximately 4 cm from the nipple There is a heterogeneous hypoechoic 4.5 x 3.1 x 2.8 cm masslike area with extensive posterior shadowing. Sonography in the axilla demonstrates a reniform lymph nodes measuring up to 1.2 x 0.9 x 0.6 cm with cortices less than 3 mm in thickness. Procedure Note Adair Mcgrath MD - 09/28/2017 COMPARISON: 2017 HISTORY: New palpable area right breast. Screening evaluation leftbreast. MAMMOGRAPHIC TECHNIQUE: Bilateral full field Digital Breast Tomosynthesis examination wasperformed with 2-D and 3-D acquisitions. This examination was reviewedwith the aid of the R2 computer-aided detection. A triangular skin markerwas placed in the area of clinical interest MAMMOGRAPHIC FINDINGS: Breast Density: Heterogeneously dense This may lower the sensitivity ofmammography. There is a new masslike asymmetry in the inferior medial right breast. There is no dominant mass in the left breast. Bilaterally no suspiciouscluster of microcalcifications or architectural distortion. SONOGRAPHIC TECHNIQUE: Targeted sonography is performed in the area of clinical interest, the 3o'clock position. Sonography is performed in the axilla SONOGRAPHIC FINDINGS: In the area of clinical interest, the 3 o'clock position, approximately 4cm from the nipple There is a heterogeneous hypoechoic 4.5 x 3.1 x 2.8 cmmasslike area with extensive posterior shadowing. Sonography in the axilla demonstrates a reniform lymph nodes measuring upto 1.2 x 0.9 x 0.6 cm with cortices less than 3 mm in thickness. IMPRESSION: Sonographic and mammographic findings in the area of clinical interestconcerning for malignancy. No clearly abnormal right axillary lymph nodes. Recommendations and findings discussed with the patient time ofexamination. All patient questions answered RECOMMENDATION: Biopsy A letter explaining the recommendations will be given to the patient. The patient's information was entered into a reminder system with a targetdue date for the next mammogram. BI-RADS description: BI-RADS 4 - Suspicious Carole Messer ELEMENTARY READING SPECIALIST IMG MAMMOGRAPHY ORDERABLES Fi nal Result from Last 3 Months or Most Recently Relevant to Health Maintenance Additional Health Concerns Infection Onset Date Last Indicated MRSA Comment:MRSA back abscess 12/15/20 CADE; 12/15/2020 12/15/2020 Insurance HPI OTHER Advance Directives For more information, please contact: [phone] * Full Code (Latest Code Status on File) Date Activated Date Inactivated Comments 08/04/2018 6:54 PM 08/09/2018 3:49 AM Care Teams Gasoline Locomotive Crane Operator Relationship Specialty Start Date End Date Bravo Carey MD [address] [place] [phone] PCP - General Internal Medicine 12/15/20
--- OUTSIDE RECORDS SUMMARY | 2024-12-22 07:56 | XMS_ITS | Encounter Summary ---
Author Organization Formerly Named [facility] Address [address] [place] [address] Care Team Providers Care Event Manager Name Role Phone Pcp, No Primary Care Provider Unavailabl e System, Provider Not In MD Primary Care Provider Unavailable Pcp, No Primary Care Provider Unavailabl e Pcp, No Primary Care Provider Unavailabl e Bravo Carey MD Primary Care Provider [phone] Encounter Details Date Type Department Care Team (Late st Contact Info) Description 09/22/2017 Ancillary Orders [facility] [address] [place] [address] Carole Messer NP [address] [place] [phone] Breast lump on right side at 4 o'clock position Social History Tobacco Use Types Packs/Day Years [...] of this encounter Visit Diagnoses Diagnosis Breast lump on right side at 4 o'clock position Lump or mass in breast documented in this encounter Additional Health Concerns Infection Onset Date Last Indicated Resolved Time MRSA Comment:MRSA back abscess 12/15/20 CADE; 12/15/2020 12/15/2020 documented as of this encounter Care Teams Event Manager Relationship Specialty Start [place] [id number] PCP - General 06/05/17 08/15/18 System, [place] [id number] PCP - General 08/16/18 08/31/18 [place] [id number] PCP - General 09/01/18 09/11/18 [place] [id number] PCP - General 09/12/18 12/14/20 Bravo Carey MD [address] [place] [id number] PCP - General Internal Medicine 12/15/20 documented as of this encounter
--- OUTSIDE RECORDS SUMMARY | 2024-12-22 07:56 | XMS_ITS | Encounter Summary ---
Author Organization [facility] Address [address] [place] [address] Care Team Providers Care Metal Alloy Scientist Name Role Phone Bravo Carey MD Primary Care Provider [phone] Encounter Details Date Type Department Care Team (Late st Contact Info) Description 05/08/2023 Pharmacy Visit [place] [facility] [address] [place] [phone] Social History Tobacco Use Types Packs/Day [...] documented as of this encounter Care Teams Metal Alloy Scientist Relationship Specialty Start Date End Date Bravo Carey MD [address] [place] [id number] PCP - General Internal Medicine 12/15/20 documented as of this encounter
--- OUTSIDE RECORDS SUMMARY | 2024-12-22 07:56 | XMS_ITS | Clinical Summary ---
Author Organization [facility] Address [address] [facility] [address] [place] [phone] Phone Care Team Providers Care Costume Rental Clerk Name Role Phone Pcp, Unknown Primary Care Provider Unavailabl e Active Problems Problem Noted Date Diagnosed Date Suspected COVID-19 virus infection 12/12/2019 Social History Tobacco Use Types Packs/Day Years Used Date Smoking Tobacco: Never Assessed Education Answer Date Recorded Are you interested in more education? Not on doug e 12/19/2022 Are you concerned about learning? Not on file 12/19/2022 No 12/19/2022 No 12/19/2022 Digital Access Answer Date Recorded No 01/17/2023 No 01/17/2023 No 01/17/2023 Reliable internet access at home? Not on file 01/17/2023 Device with a working camera? Not on file Sex and Gender Information Value Date Recorded Sex Assigned at Not on file Gender Identity Not on file Sexual Orientation Not on file Plan of Treatment Health Maintenance Due Date Last Done Comments Adult Td,Tdap Booster 1973 DEPRESSION SCREENING 1985 SMOKING Hx and SMOKELESS TOBACCO SCREENING 1986 HEPATITIS B SCREENING 1991 HEPATITIS C SCREENING 1991 HIV ONE-TIME SCREENING (18-6 5 YEARS) 1991 HEPATITIS B VACCINES (1 of 3 - 19+ 3-dose series) 01/16/1992 PAP SMEAR 1994 MAMMOGRAM 2013 COLOGUARD 2018 COLONOSCOPY 2018 COLORECTAL CANCER SCREENING 2018 FIT TEST 2018 FOBT 2018 SIGMOIDOSCOPY 2018 VIRTUAL COLONOSCOPY 2018 PNEUMOCOCCAL VACCINES (50+ years) (2 of 2 - PCV) 2023 07/26/2019 ZOSTER VACCINES (1 of 2) 2023 LIPID PANEL 06/23/2023 06/23/2018 INFLUENZA VACCINE (#1) 2024 COVID-19 VACCINE (2023-2 5 season) 2024 10/26/2020, 09/26/2020 HEPATITIS A VACCINES Aged Out No long er eligible based on patient's age to complete this topic HIB VACCINES Aged Out No longer eligi ble based on patient's age to complete this topic MENINGOCOCCAL VACCINES (ACWY) Aged Out No longer eligible based on patient's age to complete this topic Medical Devices Not on file Care Teams Costume Rental Clerk Relationship Specialty Start Date End Date Pcp, Unknown PCP - General 12/12/19 Additional Source Comments The information contained in this document represents components of the legal health record. It is not the complete legal health record.[facility]
--- OUTSIDE RECORDS SUMMARY | 2024-12-22 07:56 | XMS_ITS ---
Author Name [facility] Organization Unknown Care Team Organization Name Specialty Phone Email Start Date End [facility] Primary Care 09/24/2022 09/24/2022
--- OUTSIDE RECORDS SUMMARY | 2024-12-22 07:56 | XMS_ITS | Encounter Summary ---
Author Organization [facility] Address [address] [place] [address] Care Team Providers Care It Program Manager Name Role Phone Bravo Carey MD Primary Care Provider [phone] Encounter Details Date Type Department Care Team (Late st Contact Info) Description 05/07/2023 Pharmacy Visit [facility] [address] [place] [phone] Social History Tobacco Use Types Packs/Day [...] documented as of this encounter Care Teams It Program Manager Relationship Specialty Start Date End Date Bravo Carey MD [address] [place] [id number] PCP - General Internal Medicine 12/15/20 documented as of this encounter
--- OUTSIDE RECORDS SUMMARY | 2024-12-22 07:56 | XMS_ITS | Encounter Summary ---
Author Organization [facility] Address [address] [place] [address] Care Team Providers Care Cloth Mercerizer Operator Name Role Phone Pcp, No Primary Care Provider Unavailabl e System, Provider Not In MD Primary Care Provider Unavailable Pcp, No Primary Care Provider Unavailabl e Pcp, No Primary Care Provider Unavailabl e Bravo Carey MD Primary Care Provider [phone] Reason for Referral * Diagnostic (Routine) - Closed Specialty Diagnoses / Procedures Referred By Contmartha bailey Referred To Contact Radiology Procedures Ultrasound breast right Ultrasound guided breast biopsy right Yolande Price MD PhD [address] [place] [address] Phone: tel: Referral ID Status Reason Start Date Expiration Date Visits Re quested Visits Authorized [id number] Closed 10/08/2017 10/08/2018 1 1 Encounter Details Date Type Department Care Team (Late st Contact Info) Description 10/08/2017 Ancillary Orders [facility] [address] [place] [id number] Yolande Price MD PhD [address] [id number] Large mass of right breast Social History Tobacco Use Types Packs/Day Years [...] as of this encounter Results * Ultrasound breast right (10/08/2017 2:08 PM EST) Anatomical Region Laterality Modality Breast Right Ultrasound 10/08/2017 2:03 PM EST Impressions 10/08/2017 4:56 PM EST IMPRESSION: Overall, imaging features and clinical history are most consistent with enlarging abscess. I discussed these findings with Dr. Price at the time of the exam, 2:00 PM 10/08/2017. Ultrasound-guided biopsy was not performed and the patient was then sent for surgical I & D. Recommend follow-up ultrasound in 6-12 weeks following treatment as clinically indicated. BI-RADS description 3 - Probably Benign Findings. Short interval follow-up suggested. Narrative 10/08/2017 4:56 PM EST RIGHT BREAST ULTRASOUND INDICATION: Patient presents today for ultrasound-guided biopsy of heterogeneous hypoechoic mass in the right breast. The patient reports that the palpable mass has increased in size over the past few days with increased pain and tenderness to palpation. Comparison is made with prior studies, most recently bilateral mammogram and right breast ultrasound from 09/28/2017. FINDINGS: On exam, there is palpable fullness in the inner and lower inner periareolar right breast with an area of erythema in the lower inner quadrant. The patient reports this is new over the past few days. Targeted ultrasound of the inner right breast performed. Centered at the 3 o'clock position, 1 cm from the nipple, there is a large, irregular heterogeneous hypoechoic fluid collection with heterogeneous internal echoes, some increased through transmission and scattered peripheral vascularity. Overall, this area measures approximately 6.0 x 3.3 x 4.4 cm, increased in size since 09/28/2015, previously measuring approximately 4.5 x 2.8 x 3.3 cm. us Yolande Price MD PhD IMG US ORDERABLES Final Res ult documented in this encounter Visit Diagnoses Diagnosis Large mass of right breast Large mass of right breast documented in this encounter Additional Health Concerns Infection Onset Date Last Indicated Resolved Time MRSA Comment:MRSA back abscess 12/15/20 CADE; 12/15/2020 12/15/2020 documented as of this encounter Care Teams Cloth Mercerizer Operator Relationship Specialty [place] [id number] PCP - General 06/05/17 08/15/18 System, [place], [id number] PCP - General 08/16/18 08/31/18 [place] [id number] PCP - General 09/01/18 09/11/18 [place] [id number] PCP - General 09/12/18 12/14/20 Bravo Carey MD [address] [place] [id number] PCP - General Internal Medicine 12/15/20 documented as of this encounter
--- OUTSIDE RECORDS SUMMARY | 2024-12-22 07:56 | XMS_ITS | Patient Health Record ---
Author Organization [facility] Address [address] [place] [address] Care Team Providers Care In Service Educator Name Role Phone KAYE DRAPER Unavailable [phone] ALLERGIES Allergen (clinical drug ingredient) Drug/Non Drug Allergy documented on EMR Reaction Allergy Type Onset Date Status Substance with 3-esykrqv-7-methylgluta ryl-coenzyme A reductase inhibitor mechanism of action [...] (250.20) Active confirmed Diabetic hyperosmolar non-ketotic state (139819201) Problem Hypothyroidism, unspecified (E03.9) Active confirmed Hypothyroidism (22053964) Problem Other specified diabetes mellitus without complications (E13.9) Active confirmed Diabetes mellit us without complication (605131644) PLAN OF TREATMENT No Information Insurance Providers Payer Name Payer Address Payer Phone Subscriber Number Group Number Insured Name Patient Relationship to Insured Coverage Start Date Coverage End Date [facility] [address] [place], [place] [id number] Amy Lee Self - patient is the insured MEDICAL (GENERAL) HISTORY Medical History History ICD Code diabetes I asthma thyroid disorder anxiety Surgical History Surgery Date(Month/Year) tonsils right breast biopsy Hospitalization History Reason Date(Month/Year) childbirth
--- OUTSIDE RECORDS SUMMARY | 2024-12-22 07:56 | XMS_ITS | Encounter Summary ---
Author Organization [facility] Address [address] [place] [address] Care Team Providers Care Racetrack Steward Name Role Phone Pcp, No Primary Care Provider Unavailabl e System, Provider Not In MD Primary Care Provider Unavailable Pcp, No Primary Care Provider Unavailabl e Pcp, No Primary Care Provider Unavailabl e Bravo Carey MD Primary Care Provider [phone] Reason for Referral * Diagnostic Imaging (Routine) - Closed Specialty Diagnoses / Procedures Referred By Jenny bailey Referred To Contact Radiology Diagnoses Breast lump on right side at 4 o'clock position Procedures JORGE breast naila diagnostic bilateral JORGE breast naila unilateral right Carole Messer NP [address] [place] [address] Phone: tel: fax: [facility] [address] [facility] [place] [address] Phone: tel: fax: Referral ID Status Reason Start Date Expiration Date Visits Re quested Visits Authorized [id number] Closed 09/22/2017 09/22/2018 1 1 Encounter Details Date Type Department Care Team (Late st Contact Info) Description 09/28/2017 Ancillary Orders [facility] [address] [place] [address] Carole Messer NP [address] [place] [phone] Breast lump on right side at 4 o'clock position Social History Tobacco Use Types Packs/Day Years Used Date Smoking Tobacco: Never Alcohol Use Standard Drinks/Week Comments No 0 (1 standard drink = 0.6 oz pur e alcohol) Comments No Sex and Gender Information Value Date Recorded Sex Assigned at Female 06/23/2023 5:48 PM EDT Legal Sex Female 5:34 PM EDT Gender Identity Female 06/23/2023 5:48 PM EDT Sexual Orientation Not on file documented as of this encounter Plan of Treatment Not on file documented as of this encounter Results * (ABNORMAL) JORGE breast naila diagnostic bilateral (09/28/2017 2:00 PM EST) Anatomical [...] mammogram. BI-RADS description: BI-RADS 4 - Suspicious us Carole Messer NP IMG MAMMOGRAPHY ORDERABLES Fi nal Result documented in this encounter Visit Diagnoses Diagnosis Breast lump on right side at 4 o'clock position Lump or mass in breast Breast lump on right side at 4 o'clock position Lump or mass in breast documented in this encounter Additional Health Concerns Infection Onset Date Last Indicated Resolved Time MRSA Comment:MRSA back abscess 12/15/20 [facility]ADE; 12/15/2020 12/15/2020 documented as of this encounter Care Teams Racetrack Steward Relationship Specialty [place] [id number] PCP - General 06/05/17 08/15/18 System, [place], [id number] PCP - General 08/16/18 08/31/18 [place] [id number] PCP - General 09/01/18 09/11/18 [place] [id number] PCP - General 09/12/18 12/14/20 PoBravo MD [address] [place] [id number] PCP - General Internal Medicine 12/15/20 documented as of this encounter
[2024-12-22 07:58] VITALS: BP 118/68; PULSE 71; O2SAT 98; BMI 32.9
--- NOTE | 2024-12-22 07:58 | A.OFFPC_ITS ---
Vital Signs 12/22/24 07:58 Height 5 ft 2 in Weight 180 lb BMI 32.9 BP 118/68 Blood Pressure Location Lt brachial Position Sitting Pulse 71 Pulse Source Pulse Oximeter Pulse Oximetry (%) 98 Oxygen Delivery Method Room Air Intake Visit Reasons: DM Allergies simvastatin Allergy (Severe, Verified 12/22/24 07:59) Muscle cramps pravastatin Allergy (Unknown, Verified 12/22/24 07:59) myalgia Tobacco use date assessed: 09/01/24 Dental Screening Dental Screen Date: 09/01/24 [facility] Medical History (Updated 12/22/24 @ 08:42 by Bravo Carey MD) Overweight (BMI 25.0-29.9) BMI over 35 Umbilical hernia Eczema COVID-19 virus infection Shortness of breath Colonoscopy refused Colon cancer screening History of incarceration Hx MRSA infection Former smoker Recovering alcoholic ADHD (attention deficit hyperactivity disorder) Anxiety and depression Hx of Huitron's palsy Insomnia Bipolar 1 disorder Positive RPR test Type 1 diabetes mellitus with hyperglycemia Hypercholesterolemia Migraine Thyroid nodule PTSD (post-traumatic stress disorder) Hypothyroid Surgical History Hx of bilateral cataract extraction History of dental surgery History of tonsillectomy History of eye surgery History of section Family History (Updated 05/12/24 @ 10:02 by Bravo Carey MD) Father Alcoholism Cirrhosis Emphysema lung Liver cancer Tongue cancer Mother Hemochromatosis Maternal Aunt Bone cancer Paternal Aunt Renal cell cancer Brother In good health Alcohol abuse Son In good health Other FHx: mental illness Substance abuse Social History Housing: Apartment Are you a primary healthcare account manager to a significant other at home: No Do you presently have visiting nurse or other home services: No Alcohol intake: never Patient Tobacco Use Status: Former Tobacco user Tobacco use type: Cigarette Years Smoked: quit January 2011 e-Cigarette/Vaping Use: Never Used Second Hand Smoke Exposure: No service: No Current occupational status: employed Current occupational exposures/hazards: No Cognitive needs: No Hearing needs: No Vision needs: Yes Questionnaire PHQ-9 Over the last 2 weeks, how often have you been bothered by any of the following problems? 1. Little interest or pleasure in doing things: not at all 2. Feeling down, depressed, or hopeless: not at all 3. Trouble falling or staying asleep, or sleeping too much: not at all 4. Feeling tired or having little energy: not at all 5. Poor appetite or overeating: not at all 6. Feeling bad about yourself - or that you are a failure or have let yourself or your family down: not at all 7. Trouble concentrating on things, such as reading the newspaper or watching television: not at all 8. Moving or speaking so slowly that other people could have noticed. Or the opposite - being so fidgety or restless that you have been moving around a lot more than usual: not at all 9. Thoughts that you would be better off or of hurting yourself in some way: not at all Total score: 0 Depression Screening Interpretation: Negative Depression Screening Done: Yes Source: Developed by Drs. Lauri Edwards, Holley Neville, Ryan Mariscal and colleagues, with an educational flora from [employer]. Thrive Questionnaire Date Thrive assessed: 09/01/24 I am a: Patient What is your living situation today?: I have a steady place to live Within the past 12 months, did the food you bought not last and you didn't have the money to get more?: Never true Within the past 12 months, did you worry whether your food would run out before you got money to buy more?: Never true Do you have trouble paying for medicines?: No Do you have trouble getting transportation to medical appointments?: No Do you have trouble paying your heating and electricity bill?: No Do you have trouble taking care of your child, family member or friend?: No Do you have trouble with day-to-day activities such as bathing, preparing meals, shopping, managing finances, etc.?: No Are you currently unemployed and looking for a job?: No Are you interested in more education?: No Please select the resources that you would like help with: None Currently or been in a relationship where the following occur: No concerns reported THRIVE Score: 0 AUDIT C Alcohol Use Questionnaire (AUDIT-C) 1. How often do you have a drink containing alcohol?: Never Total Score: 0 DONNELL-7 AMB Questionnaire DONNELL-7 Date DONNELL - 7 assessed: 12/22/24 Feeling nervous, anxious, or on edge: 2 = More than half the days Not being able to stop or control worryin = More than half the days Worrying too much about different things: 2 = More than half the days Trouble relaxin = Nearly every day Being so restless that it is hard to sit still: 2 = More than half the days Becoming easily annoyed or irritable: 1 = Several days Feeling afraid as if something awful might happen: 2 = More than half the days Total DONNELL-7 score (0-4 normal; 5-9 mild; 10-14 moderate; 15-21 severe): 14 Source: Developed by Drs. Lauri Edwards, Holley Neville, Ryan Mariscal and colleagues, with an educational flora from [employer]. DONNELL-7 Assessment Billing DONNELL-7 Assessment Tool: DONNELL-7 Assessment 20926 Physical exam (Primary Care) Vital Signs: Last Vital Signs Pulse 71 12/22/24 07:58 BP 118/68 12/22/24 07:58 Pulse Ox 98 12/22/24 07:58 Oxygen Delivery Method Room Air 12/22/24 07:58 BMI result Body Mass Index 32.9 Tobacco/Smoking Status: Tobacco use Status Tobacco use date assessed 09/01/24 12/22/24 08:00 Patient Tobacco Use Status Former Tobacco user 12/22/24 08:00 Tobacco use type Cigarette 12/22/24 08:00 e-Cigarette/Vaping Use Never Used 12/22/24 08:00 PHQ-9: PHQ-9 Score PHQ-9: Total score 0 12/22/24 08:24 Depression Screening Interpretation: Negative Thrive Assessment: Date of Thrive Assessment Date Thrive assessed 09/01/24 12/22/24 08:00 Currently or been in a relationship where the following occur: No concerns reported Const General: alert; No acute distress Eyes Conjunctivae: conjunctivae normal Resp Auscultation: clear to auscultation bilaterally Cardio Rate: regular rate Rhythm: regular rhythm GI Inspection: Yes normal to inspection Extrem General: Yes normal to inspection and No edema Results AMB Hemoglobin A1c AMB Hemoglobin A1c 7.1 % Last Edit by Lashaun Law CMA on 12/22/24 08 :25 Results Reviewed Results Reviewed: Laboratory Last Values Hgb A1c (Clinic) 7.1 % (4.0-6.0) H 12/22/24 08:00 Coding Level of Care Code Est Pt Level 4 (03401) Complex EM visit Add On G2211 Diagnoses Type 1 diabetes mellitus with hyperglycemia E10.65 Acquired hypothyroidism E03.9 Hypothyroidism type: acquired Hypercholesterolemia E78.00 Bipolar 1 disorder F31.9 Obesity (BMI 30-39.9) E66.9 Renal insufficiency N28.9 Tendon cysts M67.80 Additional Codes DONNELL-7 Assessment Billing - DONNELL-7 Assessment Tool: DONNELL-7 Assessment 87225 ([id number]) Assessment & Plan Assessment & Plan (1) Type 1 diabetes mellitus with hyperglycemia: Comment: 02/2024 [facility]ular opacity[facility] Dr. niranjan Cordova(November 2023) Code(s): E10.65 - Type 1 diabetes mellitus with hyperglycemia Category: Medical Plan: Decrease the amount of carbohydrate intake, pasta, bread, rice and potatoes are all sugar and that is aside from all the sweet stuff, remember that fruits are good but they are Sweet also. Hemoglobin A1c goal of less than 6.5. Patient is on Basaglar 30 units once a day Humalog sliding scale. (2) Hypothyroid: Code(s): E03.9 - Hypothyroidism, unspecified Category: Medical Qualifiers: Hypothyroidism type: acquired Qualified Code(s): E03.9 - Hypothyroidism, unspecified Plan: Continue with thyroid medication but patient was advised to get blood work 6 weeks after the last 1 but patient has not gotten the blood work. (3) Hypercholesterolemia: Code(s): E78.00 - Pure hypercholesterolemia, unspecified Category: Medical Plan: Avoid fried foods, chicken skin, eggs, butter margarine, pastries and meat. Be it pork or beef they have a lot of cholesterol LDL goal of less than 100 patient is on rosuvastatin 5 mg once a day and triglyceride of less than 150 (4) Bipolar 1 disorder: Comment: counselling Maira Cullen/ Nilsa Baez 08/2024 Q 2 months Code(s): F31.9 - Bipolar disorder, unspecified Category: Medical Plan: Continue with counseling and therapy patient on ADHD medication clonazepam Tegretol buspirone Topamax (5) Obesity (BMI 30-39.9): Code(s): E66.9 - Obesity, unspecified Category: Medical Plan: Continue with diet and exercise noted 20 lb weight loss (6) Renal insufficiency: Code(s): N28.9 - Disorder of kidney and ureter, unspecified Category: Medical Plan: Patient will need repeat blood work to find out how the renal function is. Patient is advised to keep well hydrated and avoid NSAIDs (7) Tendon cysts: Comment: bilateral fingers (both thumbs and middle finger Code(s): M67.80 - Other specified disorders of synovium and tendon, unspecified site Category: Medical Plan History of Present Illness The patient is a 49-year-old female presenting with Type 1 Diabetes Mellitus, Hypothyroidism, Hypercholesterolemia, and Obesity for follow-up. She has reported a 20-pound weight loss, with her current diabetes management showing improvement with a decrease in HbA1c to 7.1%, although the goal is below 6.5%. The management includes insulin therapy with insulin glargine and Humalog. Her recent thyroid function test indicated an elevated TSH of 12.17, and she has not followed up for a repeat test as advised. Her LDL cholesterol was recorded at 95 mg/dL, with a target of under 70 mg/dL. In managing hypercholesterolemia, she is on rosuvastatin and attends counseling for bipolar disorder, supplemented by clonazepam, carbamazepine, and topiramate. Concerns about renal function were noted with a rise in creatinine level to 1.24, indicating the need for careful hydration and avoidance of NSAIDs. Ongoing lifestyle modifications include dietary management and regular physical activity, resulting in weight loss. Complaints of painful cysts on the thumbs and middle finger were discussed, with a history of a fatty tumor previously identified. Health Maintenance - Type 1 Diabetes Mellitus: Continue insulin therapy with an HbA1c goal of less than 6.5%. - Hypothyroidism: Follow up on thyroid function test and adjust medication as needed. - Hypercholesterolemia: Continue rosuvastatin therapy with LDL goal less than 70 mg/dL. - Obesity: Maintain dietary modifications and regular exercise. - Renal health: Advise proper hydration and avoidance of NSAIDs. - Regular eye exams and foot care for diabetes management. - Due for repeat mammogram and regular mammogram screenings. - Encouraged to monitor blood pressure and maintain within normal ranges. 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 - Housing: Not discussed. - Exercise: Engages in regular physical activity contributing to weight loss. - Nutritional intake: Subject to dietary management leading to weight loss. - Substance use: Regular use of ADHD medication. - Functional status: Sufficient to maintain employment and daily activities. Review of Systems - Endocrine: Reports Type 1 Diabetes Mellitus and Hypothyroidism. - Respiratory/Cardiovascular: Denies any symptoms. - Gastrointestinal: Denies any symptoms. - Neurological: Reports history of seizures, controlled with medication. - Psychiatric: Reports Bipolar Disorder, managed with medications. - Musculoskeletal: Reports cysts on both thumbs and right middle finger. - Dermatologic: Reports history of fatty tumors. - General: Reports 20-pound weight loss. Physical Exam - General- No explicit findings noted. Results - Labs: Hemoglobin A1c of 7.1%, LDL cholesterol of 95 mg/dL, TSH value of 12.17 (elevated in August), creatinine at 1.24. - Tests and Diagnostics: Cologuard test negative in June 2023. Plan 1. 5%. For Hypothyroidism, a thyroid function test is recommended, and medication adjustments will be made based on findings. The patient's hypercholesterolemia will be managed with ongoing rosuvastatin therapy, targeting an LDL cholesterol of less than 70 mg/dL. Renal health will be monitored closely, ensuring the patient stays hydrated and avoids NSAIDs due to increased creatinine levels. The plan for mental health includes continuation of current therapy and medications. Proper hand care and potential referrals for cysts are advised if symptoms persist. The patient will undergo routine screenings, including mammography and regular blood work, as part of comprehensive care management.: Patient was informed and verbally consented to the use of an ambient scribe for clinic note documentation during this visit. Discussion Notes During the visit, I discussed the management of the patient's Type 1 Diabetes Mellitus, emphasizing achieving an HbA1c target of less than 6.5%. We reviewed the need for regular blood glucose monitoring and maintaining the current insulin regimen. I advised further evaluation and testing for her Hypothyroidism due to previously elevated TSH levels and provided a rationale for medication continuity with future adjustments guided by upcoming test results. The imp ortance of lowering LDL cholesterol levels to mitigate cardiovascular risks in the context of Hypercholesterolemia was discussed, with continued dependability on rosuvastatin. I highlighted the implications of renal function changes, recommending hydration and avoidance of NSAIDs. We addressed mental health management, underscoring medication adherence and therapeutic support for Bipolar Disorder and ADHD. Concern regarding cysts led to a discussion about monitoring symptoms and seeking referral if necessary for further assessment. Additionally, we talked about lifestyle modifications contributing to her 20- pound weight loss and underscored the significance of timely follow-ups for mammography and thyroid function. Patient Instructions - Continue insulin injections daily and monitor blood glucose regularly. - Have thyroid blood tests done in six weeks and follow up on the results. - Take rosuvastatin as prescribed to manage cholesterol levels. - Drink plenty of water and avoid NSAIDs like Motrin, and Aleve. - Keep monitoring for symptoms related to hand cysts; seek medical attention if pain worsens. - Attend eye and foot exams regularly to manage diabetes complications. - Continue mental health medications and regular therapy sessions. - Get annual mammograms and follow up with scheduled appointments for health screenings. - Adhere to dietary recommendations and regular exercise to maintain weight loss. Orders: Orders AMB Hemoglobin A1c Today Z13.9 - Encounter for screening, unspecified Comprehensive Met. Panel Today E10.65 - Type 1 diabetes mellitus with hyperglycemia Complete Blood Count Auto Diff 3 Months E10.65 - Type 1 diabetes mellitus with hyperglycemia Comprehensive Met. Panel 3 Months E10.65 - Type 1 diabetes mellitus with hyperglycemia Microalbumin, Random (w Creat) 3 Months E10.65 - Type 1 diabetes mellitus with hyperglycemia, E11.65 - Type 2 diabetes mellitus with hyperglycemia Lipid Panel 3 Months E10.65 - Type 1 diabetes mellitus with hyperglycemia, E78.00 - Pure hypercholesterolemia, unspecified Vitamin D 25-OH Total 3 Months E10.65 - Type 1 diabetes mellitus with hyperglyc emia Creatinine Urine 3 Months E10.65 - Type 1 diabetes mellitus with hyperglycemia, E11.65 - Type 2 diabetes mellitus with hyperglycemia Hemoglobin A1c 3 Months E10.65 - Type 1 diabetes mellitus with hyperglycemia Complete Blood Count Auto Diff Today E10.65 - Type 1 diabetes mellitus with hyperglycemia Free T4 (Free Thyroxine) Today E10.65 - Type 1 diabetes mellitus with hyperglycemia Thyroid Stimulating Hormone Today E10.65 - Type 1 diabetes mellitus with hyp erglycemia Free T4 (Free Thyroxine) 3 Months E10.65 - Type 1 diabetes mellitus with hyperglycemia Vitamin B12 and Folate 3 Months E10.65 - Type 1 diabetes mellitus with hyperglycemia Carbamazepine Tegretol Today F31.9 - Bipolar disorder, unspecified Referrals Orthopedics Referral M67.80 - Other specified disorders of synovium and tendon, unspecified site Medications: New cephalexin 500 mg PO BID 7 days 14 caps 0RF M67.80 - Other specified disorders of synovium and tendon, unspecified site
== END 2024-12-22 08:55 | disposition home or self-care (01) ==
LOC: HO.HMCH 07:52
PROVIDERS: PCP Internal Medicine; Visit Provider Internal Medicine
DX: E10.65 Type 1 diabetes mellitus with hyperglycemia (principal); F31.9 Bipolar disorder, unspecified; E66.9 Obesity, unspecified; Z68.32 Body mass index [BMI] 32.0-32.9, adult; E03.9 Hypothyroidism, unspecified; E78.00 Pure hypercholesterolemia, unspecified; N28.9 Disorder of kidney and ureter, unspecified; M67.80 Other specified disorders of synovium and tendon, unspecified site

== ENCOUNTER 2025-02-16 07:56 | Outpatient (AMB) | payer OTHER, SELFPAY ==
--- OUTSIDE RECORDS SUMMARY | 2025-02-16 07:59 | XMS_ITS | Encounter Summary ---
Author Organization [facility] Address [address] [place] [address] Care Team Providers Care Radiologic Technology Instructor Name Role Phone Pcp, No Primary Care Provider Unavailabl e System, Provider Not In MD Primary Care Provider Unavailable Pcp, No Primary Care Provider Unavailabl e Pcp, No Primary Care Provider Unavailabl e Bravo Carey MD Primary Care Provider [phone] Encounter Details Date Type Department Care Team (Late st Contact Info) Description 06/23/2018 Lab Requisition [address] [id number] Gabriele Maxwell PA-C [address] [place] [address], [address] [place] [address] Encounter for other specified special examinations Social [...] - 1.76 ng/dL 06/23/2018 2:37 PM EDT [facility] Blood specimen (specimen) Venipuncture / Unknown 06/23/2018 7:31 AM EDT 06/23/2018 8:53 AM EDT us Gabriele Maxwell PA-C LAB BLOOD ORDERABLES Zahira l Result [facility] [address] [place] [address] * (ABNORMAL) Urine Complete (06/23/2018 7:31 AM EDT) Clarity, UA Slightly Cloudy(A) Clear 06/23/2018 9:05 AM EDT [facility] Color Yellow Yellow 06/23/2018 9:05 AM EDT [facility] Specific [place] 1.021 1.005 - 1.030 06/23/2018 9:05 AM EDT [facility] pH 7.0 5.0 - 7.0 06/23/2018 9:05 AM EDT [facility] Protein Negative Negative mg/dL 06/23/2018 9:05 AM EDT [facility] Glucose 150(A) Negative mg/dL 06/23/2018 9:05 AM EDT [facility] Ketones Negative Negative mg/dL 06/23/2018 9:05 AM EDT [facility] Blood 0.03(A) Negative mg/dL 06/23/2018 9:05 AM EDT [facility] Bilirubin UA Negative Negative mg/dL 06/23/2018 9:05 AM T [facility] Urobilinogen Normal Normal mg/dL 06/23/2018 9:05 AM [facility] Nitrite Negative Negative 06/23/2018 9:05 AM T [facility] Leukocyte Esterase Negative Negative [place]/uL 06/23/2018 9:05 AM T [facility] WBC 3-5(A) 0 - 2 HPF 06/23/2018 9:05 AM [facility] RBC 0-2 0 - 2 HPF 06/23/2018 9:05 AM [facility] Squam Epithelial Moderate(A) Few HPF 018 9:05 AM [facility] Mucus Few Few HPF 06/23/2018 9:05 AM [facility] Urine specimen (specimen) Urine specimen obtained by clean catch procedure / Unknown Collection / Unknown 06/23/2018 7:31 AM EDT 06/23/2018 8:47 AM EDT us Gabriele Maxwell PA-C URINE ORDERABLES Final Re sult [facility] [address] [id number] * Microalbumin Urine, Random (06/23/2018 7:31 AM EDT) Microalb, Ur <1.2 0.0 - 1.9 mg/dL 06/23/2018 3:00 PM EDT [facility] Creatinine, Ur 221.5 mg/dL 06/23/2018 3:00 PM EDT [facility] Microalb Creat Ratio 0.00 - 24.90 mcg/mg 06/23/2018 3:00 PM EDT [facility] Comment:Ratio not calculated due to Microalbumin <1.2 mg/dl Urine specimen (specimen) Collection / Unknown 06/23/2018 7:31 AM EDT 06/23/2018 8:48 AM EDT us Gabriele Maxwell PA-C URINE ORDERABLES Final Re sult [facility] [address] [place], [place] * (ABNORMAL) TSH (06/23/2018 7:31 AM EDT) TSH 17.070(H) 0.350 - 5.500 uIU/mL 06/23/2018 9:52 AM EDT [facility] Blood specimen (specimen) Venipuncture / Unknown 06/23/2018 7:31 AM EDT 06/23/2018 8:55 AM EDT us Gabriele Maxwell PA-C LAB BLOOD ORDERABLES Zahira l Result Performing Organization Address City/[facility]/ZIP Co de Phone Number [facility] [address] [place] [phone] * (ABNORMAL) Comprehensive metabolic panel (06/23/2018 7:31 AM EDT) Pathologist [facility] Sodium 141 137 - 147 mEq/L 06/23/2018 10:51 AM [facility] Potassium 3.6 3.5 - 5.4 mEq/L 06/23/2018 10:51 AM [facility] Chloride 103 96 - 107 mEq/L 06/23/2018 10:51 AM T [facility] CO2 22(L) 24 - 34 mEq/L 06/23/2018 10:51 AM [facility] Anion Gap 16(H) 4 - 15 mEq/L 06/23/2018 10:51 AM [facility] Glucose 34(LL) 70 - 100 mg/dL 06/23/2018 10:51 AM [facility] Comment:Checked by repeat an alysis. Creatinine 0.91 0.50 - 1.30 mg/dL 06/23/2018 10:51 AM [facility] eGFR >60 60 - 115 mL/min 06/23/2018 10:51 AM T [facility] BUN 12 6 - 26 mg/dL 06/23/2018 10:51 AM [facility] Calcium 9.1 8.7 - 10.5 mg/dL 06/23/2018 10:51 AM [facility] Total Protein 7.4 6.4 - 8.6 g/dL 06/23/2018 10:51 AM [facility] Albumin 4.5 3.4 - 4.8 g/dL 06/23/2018 10:51 AM [facility] A/G Ratio 1.6 1.0 - 2.3 06/23/2018 10:51 AM [facility] Total Bilirubin 0.3 0.2 - 1.2 mg/dL 06/23/2018 10:51 AM [facility] AST 24 0 - 40 U/L 06/23/2018 10:51 AM [facility] Alkaline Phosphatase 72 40 - 150 IU/L 06/23/2018 10:51 AM [facility] ALT 19 0 - 45 U/L 06/23/2018 10:51 AM [facility] Blood specimen (specimen) Venipuncture / Unknown 06/23/2018 7:31 AM EDT 06/23/2018 8:53 AM EDT us Gabriele Maxwell PA-C LAB BLOOD ORDERABLES Zahira magaña Result [facility] [address] [place] [address] * (ABNORMAL) Lipid panel (06/23/2018 7:31 AM EDT) Cholesterol 186 0 - 199 mg/dL 06/23/2018 10:03 AM T [facility] Triglycerides 69 10 - 200 mg/dL 06/23/2018 10:03 AM T [facility] HDL 62.6 >=50.0 mg/dL 06/23/2018 10:03 AM T [facility] LDL Calculated 110(H) 0 - 100 mg/dL 06/23/2018 10:03 AM EDT [facility] Cardiac Risk Factor 3.0 0.0 - 4.4 06/23/2018 10:03 AM EDT [facility] Blood specimen (specimen) Venipuncture / Unknown 06/23/2018 7:31 AM EDT 06/23/2018 8:53 AM EDT Narrative [facility] - 06/23/2018 10:03 AM EDT Cardiac Risk Factor: Males Females 2x Average Risk 9.6 7.1 3x Average Risk 23.4 11.0 us Gabriele Maxwell PA-C LAB BLOOD ORDERABLES Zahira magaña Result [facility] [address] [place] [address] documented in this encounter Visit Diagnoses Diagnosis Encounter for other specified special examinations documented in this encounter Additional Health Concerns Infection Onset Date Last Indicated Resolved Time MRSA Comment:MRSA back abscess 12/15/20 CADE; 12/15/2020 12/15/2020 documented as of this encounter Care Teams Radiologic Technology Instructor Relationship Specialty [place] [id number] PCP - General 06/05/17 08/15/18 System, [place], [id number] PCP - General 08/16/18 08/31/18 [place] [id number] PCP - General 09/01/18 09/11/18 [place] [id number] PCP - General 09/12/18 12/14/20 Bravo Carey MD [address] [place] [id number] PCP - General Internal Medicine 12/15/20 documented as of this encounter
--- NOTE | 2025-02-16 08:15 | MHC.OFFVIS ---
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 States her thumb and middle finger catch and lock forthe last 6 months. 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 She is also having numbness and tingling in bilateral hands. States her right hand is worse. NO EMG done. Last A1C was 7.1. done in December. 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 States her thumbs catch and lock forthe last 6 months. Patient is also complaining of a small bump at the base of the right middle finger on the volar aspect. 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 She is also having numbness and tingling in bilateral hands, patient states that this numbness and tingling is intermittent, daily, and much worse at night.. States her right hand is worse. NO EMG done. Last A1C was 7.1. done in December. [facility] Medical History (Updated 02/16/25 @ 15:03 by BJ Santoyo) Overweight (BMI 25.0-29.9) BMI over 35 Umbilical hernia Eczema COVID-19 virus infection Shortness of breath Colonoscopy refused Colon cancer screening History of incarceration Hx MRSA infection Former smoker Recovering alcoholic ADHD (attention deficit hyperactivity disorder) Anxiety and depression Hx of Huitron's palsy Insomnia Bipolar 1 disorder Positive RPR test Type 1 diabetes mellitus with hyperglycemia Hypercholesterolemia Migraine Thyroid nodule PTSD (post-traumatic stress disorder) Hypothyroid Surgical History Hx of bilateral cataract extraction History of dental surgery History of tonsillectomy History of eye surgery History of section Family History (Updated 05/12/24 @ 10:02 by Bravo Carey MD) Father Alcoholism Cirrhosis Emphysema lung Liver cancer Tongue cancer Mother Hemochromatosis Maternal Aunt Bone cancer Paternal Aunt Renal cell cancer Brother In good health Alcohol abuse Son In good health Other FHx: mental illness Substance abuse Social History (Updated 02/16/25 @ 08:27 by RUBEN Holly) Housing: Apartment Are you a primary healthcare or medical to a significant other at home: No Do you presently have visiting nurse or other home services: No Alcohol intake: never Patient Tobacco Use Status: Former Tobacco user Tobacco use type: Cigarette Years Smoked: quit January 2011 e-Cigarette/Vaping Use: Never Used Second Hand Smoke Exposure: No service: No Current occupational status: employed 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 Neuro: Normal sensation of the tips of all digits of the bilateral hand at this time Vascular: Cap refill brisk Pain: Tenderness to palpation of the A1 pulleys of bilateral thumbs Pain associated with locking and catching of bilateral thumbs Minimal tenderness to palpation about small mass noted at the volar base of the right middle finger ROM: Visible and palpable locking and catching of bilateral thumbs Patient is able to flex and extend all other digits of bilateral hands fully and without difficulty Skin: No lacerations or abrasions. General: Small, approximately 0.25 cm in diameter mass noted at the volar base of the right middle finger, seems to be a ganglion cyst off of the flexor tendon of the finger No ecchymosis, erythema, or evidence of infection. Psych: Appears grossly normal Affect normal Attitude cooperative Assessment & Plan Assessment & Plan (1) Numbness and tingling in both hands: Code(s): R20.0 - Anesthesia of skin; R20.2 - Paresthesia of skin Category: Medical (2) Tendon cysts: Comment: bilateral fingers (both thumbs and middle finger Code(s): M67.80 - Other specified disorders of synovium and tendon, unspecified site Category: Medical (3) Bilateral trigger thumb: Code(s): M65.311 - Trigger thumb, right thumb; M65.312 - Trigger thumb, left thumb Category: Medical Plan 1. Numbness and tingling of bilateral hands Intermittent, daily, worse at night 2. Bilateral trigger thumbs 3. Ganglion cyst of flexor tendon of right middle finger Patient is educated about this condition Patient is educated about the typical treatment course At this time, patient is referred for EMG and nerve conduction study to assess the health of the nerves of bilateral upper extremities Follow-up after EMG and nerve conduction study for results review and discussion of further treatment options If EMG negative, we will sign her up for trigger thumb releases at that time, as well as ganglion cyst excision We will perform these procedures as well as carpal tunnel releases if EMG is positive Patient is amenable to this plan Orders: Orders NE nerve conduction velocity Today R20.0 - Anesthesia of skin, R20.2 - Paresthesia of skin NE electromyogram (EMG) Today R20.0 - Anesthesia of skin, R20.2 - Paresthesia of skin Coding Level of Care Code New Pt Level 3 (31224) Diagnoses Numbness and tingling in both hands R20.0; R20.2 Tendon cysts M67.80 Bilateral trigger thumb M65.311; M65.312
[2025-02-16 08:21] VITALS: BMI 32.9
== END 2025-02-16 09:00 | disposition home or self-care (01) ==
LOC: HO.HOS 07:56
PROVIDERS: PCP Internal Medicine
DX: R20.0 Anesthesia of skin (principal); R20.2 Paresthesia of skin; M65.312 Trigger thumb, left thumb; M65.311 Trigger thumb, right thumb; M67.89 Other specified disorders of synovium and tendon, multiple sites
CPT/HCPCS: 99203

== ENCOUNTER 2025-02-16 08:51 | Emergency (ER) | payer OTHER, SELFPAY ==
[2025-02-16 08:54] VITALS: BP 148/93; PULSE 75; RESP 20; TEMP 36.5; O2SAT 98; BMI 30.7
--- NOTE | 2025-02-16 08:57 | ED.GENADULT ---
HPI - General Adult General Chief complaint: General Medical Stated complaint: swollen ankle, lac r leg Time Seen by Provider: 02/16/25 08:54 Source: patient, RN notes reviewed and old records reviewed Mode of arrival: ambulatory Limitations: no limitations History of Present Illness ED Provider: Timbo HPI narrative: Patient is a 50-year-old female with history of T1 DM, hypothyroidism, migraines, bipolar 1 disorder, PTSD presenting to the emergency department with complaint of wound to right lower leg and concern for infection as well as mild bilateral ankle swelling. Patient reports that she was recently moving boxes and accidentally scraped her right jackson. Over the past week she has noticed redness, warmth and purulent drainage. She has also noticed mild swelling to her ankles over the past few days. She denies any fevers, chills, body aches. Reports that her glucose levels have been mildly elevated around 300 for the past few days. MD complaint: wound check, edema Related Data Home Medications ?Medication ?Instructions ?Recorded ?Confirmed buspirone 30 mg tablet 30 mg PO BEDTIME 07/26/20 05/12/24 melatonin 3 mg tablet 3 mg PO BEDTIME PRN 07/26/20 05/12/24 carbamazepine 200 mg tablet 400 mg PO BEDTIME 09/27/20 05/12/24 (Tegretol) quetiapine 25 mg tablet (Seroquel) 25 mg PO BEDTIME 08/26/21 05/12/24 clonazepam 2 mg tablet 2 mg PO QAM 07/25/22 05/12/24 dextroamphetamine-amphetamine 30 1 tab PO TID 07/25/22 05/12/24 mg tablet chlorhexidine gluconate 0.12 % ml PO DIRECTED 07/28/22 05/12/24 mouthwash dextroamphetamine-amphetamine 10 1 tab PO .QD 05/12/24 05/12/24 mg tablet dextroamphetamine-amphetamine ER 20 mg PO DAILY 12/22/24 20 mg 24hr capsule,extend release (Adderall XR) Previous Rx's ?Medication ?Instructions ?Recorded flash glucose scanning reader #1 ea 07/26/20 (FreeStyle Kilo 14 Day [place]) triamcinolone acetonide 0.5 % 1 appl topical BID 14 days #15 03/28/21 topical cream grams blood sugar diagnostic (OneTouch #3 boxes 05/01/22 Verio test strips) flash glucose sensor (FreeStyle #6 ea 03/13/24 Kilo 14 Day Sensor kit) insulin lispro 100 unit/mL 6 - 10 unit (0.06 - 0.1 mL) subcut 03/28/24 subcutaneous pen (Humalog KwikPen TID #15 mL (U-100) Insulin) valacyclovir 500 mg tablet 500 mg PO BID 3 days #6 tabs 05/12/24 insulin glargine 100 unit/mL (3 30 unit (0.3 mL) subcut QAM #15 mL 06/20/24 mL) subcutaneous pen (Basaglar KwikPen U-100 Insulin) naratriptan 2.5 mg tablet 2.5 mg PO Q4H PRN migraine 09/01/24 headache 90 days #30 tabs rosuvastatin 5 mg tablet 5 mg PO BEDTIME #90 tabs 09/01/24 topiramate 100 mg tablet 300 mg (3 x 100 mg) PO BEDTIME 30 09/01/24 days #90 tabs pen needle, diabetic 31 gauge x 1 ea subcut DAILY 90 days #100 ea 10/12/24/16 (BD Ultra-Fine Mini Pen Needle) albuterol sulfate 90 mcg/actuation 2 puff inhalation Q6H PRN 12/01/24 aerosol inhaler (Ventolin HFA) shortness of breath or wheezing #8.5 grams levothyroxine 137 mcg tablet 137 mcg PO BEDTIME 90 days #90 tabs 02/01/25 cephalexin 500 mg capsule 500 mg PO QID #28 caps 02/16/25 doxycycline hyclate 100 mg capsule 100 mg PO BID #14 caps 02/16/25 Allergies Allergy/AdvReac Type Severity Reaction Status Date / Time simvastatin Allergy Severe Muscle Verified 02/16/25 08:59 cramps pravastatin Allergy Unknown myalgia Verified 02/16/25 08:59 Review of Systems Review of Systems: As per HPI Yes all other systems are reviewed and are negative Constitutional: Constitutional: Reports as per HPI [facility] Past Medical History Medical History (Updated 02/16/25 @ 09:44 by Naya Izquierdo NP) Overweight (BMI 25.0-29.9) BMI over 35 Umbilical hernia Eczema COVID-19 virus infection Shortness of breath Colonoscopy refused Colon cancer screening History of incarceration Hx MRSA infection Former smoker Recovering alcoholic ADHD (attention deficit hyperactivity disorder) Anxiety and depression Hx of Huitron's palsy Insomnia Bipolar 1 disorder Positive RPR test Type 1 diabetes mellitus with hyperglycemia Hypercholesterolemia Migraine Thyroid nodule PTSD (post-traumatic stress disorder) Hypothyroid Surgical History Hx of bilateral cataract extraction History of dental surgery History of tonsillectomy History of eye surgery History of section Family History Family History (Updated 05/12/24 @ 10:02 by Bravo Carey MD) Father Alcoholism Cirrhosis Emphysema lung Liver cancer Tongue cancer Mother Hemochromatosis Maternal Aunt Bone cancer Paternal Aunt Renal cell cancer Brother In good health Alcohol abuse Son In good health Other FHx: mental illness Substance abuse Social History Social History (Updated 02/16/25 @ 08:27 by RUBEN Holly) Housing: Apartment Are you a primary medicare biller to a significant other at home: No Do you presently have visiting nurse or other home services: No Alcohol intake: never Patient Tobacco Use Status: Former Tobacco user Tobacco use type: Cigarette Years Smoked: quit January 2011 e-Cigarette/Vaping Use: Never Used Second Hand Smoke Exposure: No Advance Directives: No Advance Directives Information Provided: No service: No Current occupational status: employed 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 Blood pressure normal. Heart rate normal. Respiratory rate normal. Temperature normal. Oxygen saturation normal. Const General: cooperative, healthy appearing and no acute distress Orientation/consciousness: oriented to person, oriented to place, oriented to time and patient oriented x3 Limitations: no limitations HENMT Head: Yes normocephalic and Yes atraumatic Ears: external ears normal General nose exam: Normal external nose present Face and sinus: Yes face symmetric Mouth: oropharynx normal and moist mucous membranes Throat: Yes uvula midline Eyes Pupils: Equal, round and reactive pupils present Neck Neck: Yes normal visual inspection and Yes supple Resp Effort & Inspection: normal respiratory effort and able to speak in complete sentences Auscultation: clear to auscultation bilaterally Cardio Rate: regular rate Rhythm: regular rhythm Heart sounds: S1 normal heart sound present and S2 normal heart sound present GI Palpation (GI): Soft to palpation and nontender Auscultation: normoactive bowel sounds General: Yes no CVA tenderness Back/Spine/Pelvis Back: no CVA tenderness Skin General skin exam: elasticity normal and turgor normal Full body images:  1. 3cm linear wound to right jackson with surrounding erythema and warmth, no active drainage, no lymphangitis Neuro General: oriented to person, oriented to place, oriented to time, patient oriented x3, moves all extremities, no focal motor deficits and CN's II-XI intact bilaterally Cranial nerves: Yes Equal, round and reactive pupils present Cognition (Neuro): normal cognition Extrem Other: 1+ bilateral non-pitting edema to ankles General: Yes full ROM and Yes no calf tenderness Right lower extremity: foot Details: vascular exam Details: dorsalis pedis pulse present, posterior tibial pulse present and normal capillary refill Left lower extremity: foot Details: vascular exam Details: dorsalis pedis pulse present, posterior tibial pulse present and normal capillary refill Psych Mental Status: mental status grossly normal Affect: normal affect Thought process: Normal thought process present Medical Decision Making Medical Decision Making MDM Narrative: Patient is a 50-year-old female with history of T1 DM, hypothyroidism, migraines, bipolar 1 disorder, PTSD presenting to the emergency department with complaint of wound to right lower leg and concern for infection as well as mild bilateral ankle swelling. On exam patient is awake, A+Ox3, VS WNL, afebrile, normal neurological exam without focal deficits, physical exam findings as above. Given reported symptoms and physical exam findings, initial differential includes but is not limited to wound check, cellulitis, dependent edema, hyperglycemia or other electrolyte abnormality. Labs notable for no leukocytosis, euglycemia without anion gap. Will treat for cellulitis with doxy and keflex as patient reports history of MRSA in the past. Feel patient stable for discharge home at this time. Return precautions discussed. Follow up with PCP as needed. Patient verbalized understanding of and agreement with plan. Differential Diagnosis Differential Diagnoses: The differential diagnosis associated with the presentation includes As per MDM Admission/Observation Consideration of admission/observation: Escalation of care including admission/observation considered Patient would have been admitted to the hospital had their work up had any findings where hospital admission was appropriate and their clinical presentation warranted hospital admission. Lab Data [facility] Lab Attestation statement: I reviewed the patient's lab results. as per [facility] 02/16/25 09:09 02/16/25 09:09 Labs: Lab Results 02/16/25 02/16/25 Range/Units 09:03 09:09 WBC 9.5 (4.8-10.8) X10*3/uL RBC 4.61 (4.20-5.50) X10*6/uL Hgb 13.9 (12.0-16.0) g/dl Hct 40.3 (37.0-47.0) % MCV 87.4 (80.0-98.0) fL MCH 30.2 (27.0-33.0) pg MCHC 34.5 (31.0-35.0) g/dl RDW 15.3 (11.0-16.0) % Plt Count 282 (160-400) X10*3/uL MPV 9.5 (9.4-12.3) fL Immature Gran % (Auto) 0.3 (0.0-0.4) % Neut % (Auto) 69.7 (45-73) % Lymph % (Auto) 22.1 (20-40) % [place] % (Auto) 5.2 (2-11) % Eos % (Auto) 2.2 (0-4) % Baso % (Auto) 0.5 (0-2) % Lymph # (Auto) 2.1 (1.2-4.9) X10*3/uL [place] # (Auto) 0.5 (0.1-1.2) X10*3/uL Eos # (Auto) 0.2 (0.0-0.4) X10*3/uL Baso # (Auto) 0.1 (0.0-0.2) X10*3/uL Abs Immat Gran (auto) 0.03 (0.00-0.03) X10*3/uL Absolute Neuts (auto) 6.6 (2.0-8.3) x10*3/uL Absolute Nucleated RBC 0.000 (0.0-0.012) X10*3/uL Nucleated RBC % (auto) 0.0 (0.0-0.2) /100WBC Sodium 138 (135-145) mmol/L Potassium 4.9 D (3.3-5.1) mmol/L Chloride 105 (96-108) mmol/L Carbon Dioxide 27 (22-29) mmol/L Anion Gap 11 L (12-20) BUN 14 (9-16) mg/dL Creatinine 0.84 (0.5-1.4) mg/dL Estim Creat Clear Calc 86.6 Estimated GFR > 60 POC Glucose 83 (60-115) mg/dL Random Glucose 85 (60-115) mg/dL Calcium 9.4 D (8.4-10.2) mg/dL External Record Review External record reviewed: Inpatient record, Office record and Outpatient record Prescription Management I considered prescription management with: Antibiotic Discharge Plan Discharge Clinical Impression: Cellulitis of right anterior lower leg, Pedal edema Patient Disposition: Home, Self-Care Instructions: Cephalexin (By mouth), Doxycycline (By mouth), Cellulitis (ED), Edema (ED) Additional Instructions: You have been evaluated in the emergency department today for skin infection, also known as cellulitis. If the area of inflammation was outlined today in the ER, please return to the ER immediately if the area of redness increases beyond the border. Please take your prescribed antibiotics as directed for the full course of the medication. PLEASE BE AWARE THAT DOXYCYCLINE INCREASES YOUR SENSITIVITY TO SUNLIGHT AND YOU SHOULD NOT GO OUTDOORS WITHOUT WEARING SUNSCREEN OR HAT, LONG SLEEVES, PANTS WHILE TAKING THIS MEDICATION. You can use Tylenol or ibuprofen per package instructions every 6 hours as needed for pain. If necessary, you can alternate these medications so that you can take one medication every 3 hours. For instance, at noon take ibuprofen, then at 3:00 p.m. take Tylenol, then at 6:00 p.m. take ibuprofen. Your lower leg swelling is likely due to recent high temperatures. He if your legs elevated while at rest as much as possible, be sure to drink adequate fluids with electrolytes such as Gatorade, Pedialyte, etc.. Please schedule an appointment for follow-up with your primary care physician as soon as possible. Return to the emergency department if you experience recurrent vomiting, fevers greater than 100.4? F, increasing area of redness, warmth around the area, foul-smelling discharge from the area, increased tenderness around the area, or any other concerning symptoms. Prescriptions: New cephalexin 500 mg capsule 500 mg PO QID Qty: 28 0RF doxycycline hyclate 100 mg capsule 100 mg PO BID Qty: 14 0RF No Action clonazepam 2 mg tablet 2 mg PO QAM dextroamphetamine-amphetamine 30 mg tablet 1 tab PO TID (DME) FreeStyle Kilo 14 Day Sensor Kit See Rx Instructions .ROUTE .MEDSUPPLY Qty: 6 3RF Rx Instructions: As directed insulin lispro [Humalog KwikPen Insulin] 100 unit/mL insulin pen 6 - 10 unit subcut TID Qty: 15 11RF insulin glargine [Basaglar KwikPen U-100 Insulin] 100 unit/mL (3 mL) insulin pen 30 unit subcut QAM Qty: 15 11RF Rx Instructions: or as directed pen needle, diabetic [BD Ultra-Fine Mini Pen Needle] 31 gauge x 3/16 needle 1 ea subcut DAILY 90 Days Qty: 100 3RF albuterol sulfate [Ventolin HFA] 90 mcg/actuation HFA aerosol inhaler 2 puff inhalation Q6H PRN (Reason: shortness of breath or wheezing) Qty: 8.5 0RF dextroamphetamine-amphetamine [Adderall XR] 20 mg capsule,extended release 24hr 20 mg PO DAILY Patient Comments: Patient always wants as brand name levothyroxine 137 mcg tablet 137 mcg PO BEDTIME 90 Days Qty: 90 1RF (DME) OneTouch Verio test strips Strip See Rx Instructions .ROUTE .MEDSUPPLY Qty: 3 3RF Rx Instructions: As directed check the BS TID melatonin 3 mg tablet 3 mg PO BEDTIME PRN buspirone 30 mg tablet 30 mg PO BEDTIME (DME) FreeStyle Kilo 14 Day [place] Misc See Rx Instructions .ROUTE .MEDSUPPLY Qty: 1 0RF Rx Instructions: As directed carbamazepine [Tegretol] 200 mg tablet 400 mg PO BEDTIME Rx Instructions: Maira ayoub triamcinolone acetonide 0.5 % cream 1 appl topical BID 14 Days Qty: 15 0RF chlorhexidine gluconate 0.12 % mouthwash PO DIRECTED dextroamphetamine-amphetamine 10 mg tablet 1 tab PO .QD Rx Instructions: Nilsa Harakas quetiapine [Seroquel] 25 mg tablet 25 mg PO BEDTIME valacyclovir 500 mg tablet 500 mg PO BID 3 Days Qty: 6 5RF naratriptan 2.5 mg tablet 2.5 mg PO Q4H PRN (Reason: migraine headache) 90 Days Qty: 30 3RF Rx Instructions: do not exceed 2 doses per 24 hrs topiramate 100 mg tablet 300 mg PO BEDTIME 30 Days Qty: 90 0RF rosuvastatin 5 mg tablet 5 mg PO BEDTIME Qty: 90 2RF Print Language: Zimbabwean
[2025-02-16 09:19] LABS: MANUAL DIFF FLAG NO
[2025-02-16 09:19] LABS: Glucose, Whole Blood 83 mg/dL (60-115)
[2025-02-16 09:20] LABS: Basophils Absolute Auto 0.1 X10*3/uL (0.0-0.2); Basophils Percent Auto 0.5 % (0-2); Eosinophils Absolute Auto 0.2 X10*3/uL (0.0-0.4); Eosinophils Percent Auto 2.2 % (0-4); Hematocrit 40.3 % (37.0-47.0); Hemoglobin 13.9 g/dl (12.0-16.0); Imm Gran Abs Auto 0.03 X10*3/uL (0.00-0.03); Imm Gran Pct Auto 0.3 % (0.0-0.4); Lymphocytes Absolute Auto 2.1 X10*3/uL (1.2-4.9); Lymphocytes Percent Auto 22.1 % (20-40); Mean Corpuscular HGB Conc 34.5 g/dl (31.0-35.0); Mean Corpuscular Hemoglobin 30.2 pg (27.0-33.0); Mean Corpuscular Volume 87.4 fL (80.0-98.0); Mean Platelet Volume 9.5 fL (9.4-12.3); Monocytes Absolute Auto 0.5 X10*3/uL (0.1-1.2); Monocytes Percent Auto 5.2 % (2-11); Neutrophils Absolute Auto 6.6 x10*3/uL (2.0-8.3); Neutrophils Percent Auto 69.7 % (45-73); Platelet Count 282 X10*3/uL (160-400); Red Blood Count 4.61 X10*6/uL (4.20-5.50); Red Cell Distribution Width 15.3 % (11.0-16.0); White Blood Count 9.5 X10*3/uL (4.8-10.8)
[2025-02-16 09:32] LABS: Anion Gap 11 (12-20); Blood Urea Nitrogen 14 mg/dL (9-16); Calcium 9.4 mg/dL (8.4-10.2); Carbon Dioxide 27 mmol/L (22-29); Chloride 105 mmol/L (96-108); Creatinine Clr Calc Pharmacy 86.6; Estimated Glomerular Filt Rate > 60; Glucose Random 85 mg/dL (60-115); Potassium 4.9 mmol/L (3.3-5.1); Sodium 138 mmol/L (135-145)
[2025-02-16] MEDS: cephALEXin 500 MG CAPSULE PO (10:10)
[2025-02-16] MEDS: Doxycycline Monohydrate 100 MG CAPSULE PO (10:10)
[2025-02-16 10:14] VITALS: BP 148/93; PULSE 75; RESP 20; TEMP 36.5; O2SAT 98
== END 2025-02-16 10:15 | disposition home or self-care (01) ==
PROVIDERS: Emergency Provider Emergency Medicine; PCP Internal Medicine
DX: L03.115 Cellulitis of right lower limb (principal); R60.0 Localized edema; E10.9 Type 1 diabetes mellitus without complications; Z79.4 Long term (current) use of insulin; Z79.899 Other long term (current) drug therapy; Z87.891 Personal history of nicotine dependence
CPT/HCPCS: 36415; 80048; 82947; 85025; 99283; 99284

== ENCOUNTER 2025-04-19 07:51 | Outpatient (REF) | payer OTHER, SELFPAY ==
--- OUTSIDE RECORDS SUMMARY | 2025-04-19 07:53 | XMS_ITS | Clinical Summary ---
Author Organization [facility] Address [address] [place] [address] Care Team Providers Care Sliver Chopper Name Role Phone Bravo Carey MD Primary Care Provider [phone] Allergies Active Allergy Reactions Criticality Noted Date [...] 68 06/23/2023 4:54 PM EDT Temperature 36.8 C (98.3 F) 06/23/2023 4:54 PM EDT Respiratory Rate 16 06/23/2023 4:54 PM EDT [...] 10/26/2020, Additional history exists Influenza Vaccine (#1) 2025 06/03/2022, 2020 HIB Vaccines Aged Out No longer eligi ble based on patient's age to complete this topic Hepatitis A Vaccine Aged Out No longe r eligible based on patient's age to complete this topic Procedures Procedure Name Priority Date/Time Associated Diagnosis Comments LIPID PANEL Routine 06/23/2018 7:31 AM EDT Encounter for other specified special examinations [facility] DIAGNOSTIC BILATERAL Routine 09/28/2017 2:00 PM EST Breast lump on right side at 4 o'clock position from Last 3 Months or Most Recently Relevant to Health Maintenance Results * (ABNORMAL) Lipid panel (06/23/2018 7:31 AM EDT) Cholesterol 186 0 - 199 mg/dL 06/23/2018 10:03 AM EDT [facility] Triglycerides 69 10 - 200 mg/dL 06/23/2018 10:03 AM EDT [facility] HDL 62.6 >=50.0 mg/dL 06/23/2018 10:03 AM EDT [facility] LDL Calculated 110(H) 0 - 100 mg/dL 06/23/2018 10:03 AM EDT [facility] Cardiac Risk Factor 3.0 0.0 - 4.4 06/23/2018 10:03 AM EDT [facility] Blood specimen (specimen) Venipuncture / Unknown 06/23/2018 7:31 AM EDT 06/23/2018 8:53 AM EDT Narrative [facility] - 06/23/2018 10:03 AM EDT Cardiac Risk Factor: Males Females 2x Average Risk 9.6 7.1 3x Average Risk 23.4 11.0 us Gabriele Maxwell PA-C LAB BLOOD ORDERABLES Zahira magaña Result [facility] [address] [place] [address] * (ABNORMAL) JORGE breast mario diagnostic bilateral [...] mammogram. BI-RADS description: BI-RADS 4 - Suspicious Narrative 09/28/2017 3:13 PM EST COMPARISON: 2017 HISTORY: New palpable area right breast. Screening evaluation left breast. MAMMOGRAPHIC TECHNIQUE: Bilateral full field Digital Breast Tomosynthesis examination was performed with 2-D and 3-D acquisitions. This examination was reviewed with the aid of the R2 computer-aided detection. A triangular skin marker was placed in the area of clinical interest MAMMOGRAPHIC FINDINGS: Breast Density: Heterogeneously dense This may lower the sensitivity of mammography. There [...] description: BI-RADS 4 - Suspicious Carole Messer CLIENT CUSTOMER MANAGER IMG MAMMOGRAPHY ORDERABLES Fi nal Result from Last 3 Months or Most Recently Relevant to Health Maintenance Additional Health Concerns Infection Onset Date Last Indicated MRSA Comment:MRSA back abscess 12/15/20 CADE; 12/15/2020 12/15/2020 Insurance HPI OTHER Advance Directives For more information, please contact: [phone] * Full Code (Latest Code Status on File) Date Activated Date Inactivated Comments 08/04/2018 6:54 PM 08/09/2018 3:49 AM Care Teams Sliver Chopper Relationship Specialty Start Date End Date Bravo Carey MD [address] [place] [id number] PCP - General Internal Medicine 12/15/20
--- OUTSIDE RECORDS SUMMARY | 2025-04-19 07:53 | XMS_ITS | Encounter Summary ---
Author Organization [facility] Address [address] [place] [address] Care Team Providers Care Igniter Capper Name Role Phone Bravo Carey MD Primary Care Provider [phone] Encounter Details Date Type Department Care Team (Late st Contact Info) Description 05/07/2023 Pharmacy Visit [facility] [address] [place] [phone] Social History Tobacco Use Types Packs/Day [...] documented as of this encounter Care Teams Igniter Capper Relationship Specialty Start Date End Date Bravo Carey MD [address] [place] [id number] PCP - General Internal Medicine 12/15/20 documented as of this encounter
--- OUTSIDE RECORDS SUMMARY | 2025-04-19 07:53 | XMS_ITS | Encounter Summary ---
Author Organization [facility] Address [address] [place] [address] Care Team Providers Care Functional Skills Tutor Name Role Phone Bravo Craey MD Primary Care Provider [phone] Encounter Details Date Type Department Care Team (Late st Contact Info) Description 05/08/2023 Pharmacy Visit [facility] [address] [place] [phone] Social History Tobacco Use Types Packs/Day [...] documented as of this encounter Care Teams Functional Skills Tutor Relationship Specialty Start Date End Date Bravo Carey MD [address] [place] [id number] PCP - General Internal Medicine 12/15/20 documented as of this encounter
--- OUTSIDE RECORDS SUMMARY | 2025-04-19 07:54 | XMS_ITS | Encounter Summary ---
Author Organization [facility] Address [address] [place] [address] Care Team Providers Care Manager Advertising Name Role Phone Pcp, No Primary Care Provider Unavailabl e System, Provider Not In MD Primary Care Provider Unavailable Pcp, No Primary Care Provider Unavailabl e Pcp, No Primary Care Provider Unavailabl e Bravo Carey MD Primary Care Provider [phone] Reason for Referral * Diagnostic Imaging (Routine) - Closed Specialty Diagnoses / Procedures Referred By Jenny bailey Referred To Contact Radiology Diagnoses Breast lump on right side at 4 o'clock position Procedures JORGE breast naila diagnostic bilateral JORGE breast naila unilateral right Carole Messer NP [address] [place] [address] Phone: tel: fax: [facility] [address] [facility], [address] [place] [address] Phone: tel: fax: Referral ID Status Reason Start Date Expiration Date Visits Re quested Visits Authorized [id number] Closed 09/22/2017 09/22/2018 1 1 Encounter Details Date Type Department Care Team (Late st Contact Info) Description 09/28/2017 Ancillary Orders [facility] [address] [place] [address] Carole Messer NP [address] [place] [phone] Breast lump on right side at 4 [...] Suspicious Narrative 09/28/2017 3:13 PM EST COMPARISON: 2016 HISTORY: New palpable area right breast. Screening [...] documented as of this encounter Care Teams Manager Advertising Relationship Specialty [place] [id number] PCP - General 06/05/17 08/15/18 System, [place], [id number] PCP - General 08/16/18 08/31/18 [place] [id number] PCP - General 09/01/18 09/11/18 [place] [id number] PCP - General 09/12/18 12/14/20 Bravo Carey MD [address] [place] [id number] PCP - General Internal Medicine 12/15/20 documented as of this encounter
--- OUTSIDE RECORDS SUMMARY | 2025-04-19 07:54 | XMS_ITS | Encounter Summary ---
Author Organization [facility] Address [address] [place] [address] Care Team Providers Care Team Psychologist Name Role Phone Pcp, No Primary Care Provider Unavailabl e System, Provider Not In MD Primary Care Provider Unavailable Pcp, No Primary Care Provider Unavailabl e Pcp, No Primary Care Provider Unavailabl e Bravo Carey MD Primary Care Provider [phone] Reason for Referral * Diagnostic (Routine) - Closed Specialty Diagnoses / Procedures Referred By Contmartha bailey Referred To Contact Radiology Procedures Ultrasound breast right Ultrasound guided breast biopsy right Yolande Price MD PhD [address] [place] [address] Phone: tel: Referral ID Status Reason Start Date Expiration Date Visits Re quested Visits Authorized [id number] Closed 10/08/2017 10/08/2018 1 1 Encounter Details Date Type Department Care Team (Late st Contact Info) Description 10/08/2017 Ancillary Orders [facility] [address] [place] [phone] Yolande Price MD PhD [address] [address] Large mass of right breast Social History [...] documented as of this encounter Care Teams Team Psychologist Relationship Specialty [place] [id number] PCP - General 06/05/17 08/15/18 System, [place], [id number] PCP - General 08/16/18 08/31/18 [place] [id number] PCP - General 09/01/18 09/11/18 [place] [id number] PCP - General 09/12/18 12/14/20 Bravo Carey MD [address] [place] [id number] PCP - General Internal Medicine 12/15/20 documented as of this encounter
--- OUTSIDE RECORDS SUMMARY | 2025-04-19 07:54 | XMS_ITS | Encounter Summary ---
Author Organization [facility] Address [address] [place] [address] Care Team Providers Care Skidway Man Name Role Phone Pcp, No Primary Care Provider Unavailabl e System, Provider Not In MD Primary Care Provider Unavailable Pcp, No Primary Care Provider Unavailabl e Pcp, No Primary Care Provider Unavailabl e Bravo Carey MD Primary Care Provider Reason for Referral * Diagnostic (Routine) - Closed Specialty Diagnoses / Procedures Referred By Jenny bailey Referred To Contact Radiology Diagnoses Follow up Procedures Ultrasound guided percutaneoUltrasound aspiration breast right Ultrasound breast right Yolande Price MD PhD [address] [place] [address] Phone: tel: Referral ID Status Reason Start Date Expiration Date Visits Re quested Visits Authorized [id number] Closed 10/15/2017 10/15/2018 1 1 Encounter Details Date Type Department Care Team (Late st Contact Info) Description 10/15/2017 Ancillary Orders [facility] [address] [place] [address] Yolande Price MD PhD [address] [place] [address] Follow up Social History Tobacco Use Types [...] EST ULTRASOUND-GUIDED RIGHT BREAST FLUID ASPIRATION HISTORY: History [...] documented as of this encounter Care Teams Skidway Man Relationship Specialty [place] [id number] PCP - General 06/05/17 08/15/18 System, [place], [id number] PCP - General 08/16/18 08/31/18 [place] [id number] PCP - General 09/01/18 09/11/18 [place] [id number] PCP - General 09/12/18 12/14/20 Bravo Carey MD [address] [place] [address] PCP - General Internal Medicine 12/15/20 documented as of this encounter
--- OUTSIDE RECORDS SUMMARY | 2025-04-19 07:54 | XMS_ITS | Clinical Summary ---
Author Organization [facility] Address [address] [facility] [address] [place] [address] Phone Care Team Providers Care Field Radio Operator Name Role Phone Pcp, Unknown Primary [...] with a working camera? Not on file Comments Unknown Sex and Gender Information Value Date Recorded Sex Assigned at Not on file Legal Sex Female 8:30 AM EDT Gender Identity Not on file Sexual Orientation Not on file Plan of Treatment Health Maintenance Due Date Last Done Comments Adult Td,Tdap Booster 1973 DEPRESSION SCREENING 1985 SMOKING Hx and SMOKELESS TOBACCO SCREENING 1986 HEPATITIS C SCREENING 1991 HIV ONE-TIME SCREENING (18-6 5 YEARS) 1991 PAP SMEAR 1994 MAMMOGRAM 2013 COLOGUARD 2018 COLONOSCOPY 2018 COLORECTAL CANCER SCREENING 2018 FIT TEST 2018 FOBT 2018 SIGMOIDOSCOPY 2018 VIRTUAL COLONOSCOPY 2018 PNEUMOCOCCAL VACCINES (50+ years) (2 of 2 - PCV) 2023 07/26/2019 ZOSTER VACCINES (1 of 2) 2023 LIPID PANEL 06/23/2023 06/23/2018 COVID-19 VACCINE (3 - 4-2 5 season) 2024 10/26/2020, 09/26/2020 HEPATITIS A VACCINES Aged Out No long er eligible based on patient's age to complete this topic HIB VACCINES Aged Out No longer eligi ble based on patient's age to complete this topic MENINGOCOCCAL VACCINES (ACWY) Aged Out No longer eligible based on patient's age to complete this topic MENINGOCOCCAL VACCINES (B) Aged Out N o longer eligible based on patient's age to complete this topic Medical Devices Not on file Care Teams Field Radio Operator Relationship Specialty Start Date End Date Pcp, Unknown PCP - General 12/12/19 Additional Source Comments The information contained in this document represents components of the legal health record. It is not the complete legal health record.[facility]
--- OUTSIDE RECORDS SUMMARY | 2025-04-19 07:54 | XMS_ITS | Encounter Summary ---
Author Organization [facility] Address [address] [place] [address] Care Team Providers Care Entry Level Management Name Role Phone Pcp, No Primary Care Provider Unavailabl e System, Provider Not In MD Primary Care Provider Unavailable Pcp, No Primary Care Provider Unavailabl e Pcp, No Primary Care Provider Unavailabl e Bravo Carey MD Primary Care Provider [phone] Encounter Details Date Type Department Care Team (Late st Contact Info) Description 06/23/2018 Lab Requisition [address] [address] Gabriele Maxwell PA-C [address] [place] [address], [address] [place] [address] Encounter for other specified special [...] - 1.76 ng/dL 06/23/2018 2:37 PM EDT [facility] Blood specimen (specimen) Venipuncture / Unknown 06/23/2018 7:31 AM EDT 06/23/2018 8:53 AM EDT us Gabriele Maxwell PA-C LAB BLOOD ORDERABLES Zahira l Result [facility] [address] [place] [address] * (ABNORMAL) Urine Complete (06/23/2018 7:31 AM EDT) Clarity, UA Slightly Cloudy(A) Clear 06/23/2018 9:05 AM EDT [facility] Color Yellow Yellow 06/23/2018 9:05 AM EDT [facility] Specific Swink 1.021 1.005 - 1.030 06/23/2018 9:05 AM EDT [facility] pH 7.0 5.0 - 7.0 06/23/2018 9:05 AM EDT [facility] Protein Negative Negative mg/dL 06/23/2018 9:05 AM EDT [facility] Glucose 150(A) Negative mg/dL 06/23/2018 9:05 AM EDT [facility] Ketones Negative Negative mg/dL 06/23/2018 9:05 AM EDT [facility] Blood 0.03(A) Negative mg/dL 06/23/2018 9:05 AM EDT [facility] Bilirubin UA Negative Negative mg/dL 06/23/2018 9:05 AM T [facility] Urobilinogen Normal Normal mg/dL 06/23/2018 9:05 AM [facility] Nitrite Negative Negative 06/23/2018 9:05 AM T [facility] Leukocyte Esterase Negative Negative Conchis/uL 06/23/2018 9:05 AM T [facility] WBC 3-5(A) 0 - 2 HPF 06/23/2018 9:05 AM [facility] RBC 0-2 0 - 2 HPF 06/23/2018 9:05 AM [facility] Squam Epithelial Moderate(A) Few HPF 018 9:05 AM [facility] Mucus Few Few HPF 06/23/2018 9:05 AM [facility] Urine specimen (specimen) Urine specimen obtained by clean catch procedure / Unknown Collection / Unknown 06/23/2018 7:31 AM EDT 06/23/2018 8:47 AM EDT us Gabriele Maxwell PA-C URINE ORDERABLES Final Re sult [facility] [address] [id number] * Microalbumin Urine, Random (06/23/2018 7:31 AM EDT) Microalb, Ur <1.2 0.0 - 1.9 mg/dL 06/23/2018 3:00 PM EDT [facility] Creatinine, Ur 221.5 mg/dL 06/23/2018 3:00 PM EDT [facility] Microalb Creat Ratio 0.00 - 24.90 mcg/mg 06/23/2018 3:00 PM EDT [facility] Comment:Ratio not calculated due to Microalbumin <1.2 mg/dl Urine specimen (specimen) Collection / Unknown 06/23/2018 7:31 AM EDT 06/23/2018 8:48 AM EDT us Gabriele Maxwell PA-C URINE ORDERABLES Final Re sult [facility] [address] [place], [place] * (ABNORMAL) TSH (06/23/2018 7:31 AM EDT) TSH 17.070(H) 0.350 - 5.500 uIU/mL 06/23/2018 9:52 AM EDT [facility] Blood specimen (specimen) Venipuncture / Unknown 06/23/2018 7:31 AM EDT 06/23/2018 8:55 AM EDT us Gabriele Maxwell PA-C LAB BLOOD ORDERABLES Zahira l Result Performing Organization Address City/[facility]/ZIP Co de Phone Number [facility] [address] [place] [address] * (ABNORMAL) Comprehensive metabolic panel (06/23/2018 7:31 AM EDT) Pathologist [facility] Sodium 141 137 - 147 mEq/L 06/23/2018 10:51 AM [facility] Potassium 3.6 3.5 - 5.4 mEq/L 06/23/2018 10:51 AM [facility] Chloride 103 96 - 107 mEq/L 06/23/2018 10:51 AM T [facility] CO2 22(L) 24 - 34 mEq/L 06/23/2018 10:51 AM [facility] Anion Gap 16(H) 4 - 15 mEq/L 06/23/2018 10:51 AM [facility] Glucose 34(LL) 70 - 100 mg/dL 06/23/2018 10:51 AM [facility] Comment:Checked by repeat an alysis. Creatinine 0.91 0.50 - 1.30 mg/dL 06/23/2018 10:51 AM [facility] eGFR >60 60 - 115 mL/min 06/23/2018 10:51 AM T [facility] BUN 12 6 - 26 mg/dL 06/23/2018 10:51 AM [facility] Calcium 9.1 8.7 - 10.5 mg/dL 06/23/2018 10:51 AM [facility] Total Protein 7.4 6.4 - 8.6 g/dL 06/23/2018 10:51 AM [facility] Albumin 4.5 3.4 - 4.8 g/dL 06/23/2018 10:51 AM [facility] A/G Ratio 1.6 1.0 - 2.3 06/23/2018 10:51 AM [facility] Total Bilirubin 0.3 0.2 - 1.2 mg/dL 06/23/2018 10:51 AM [facility] AST 24 0 - 40 U/L 06/23/2018 10:51 AM [facility] Alkaline Phosphatase 72 40 - 150 IU/L 06/23/2018 10:51 AM [facility] ALT 19 0 - 45 U/L 06/23/2018 10:51 AM [facility] Blood specimen (specimen) Venipuncture / Unknown 06/23/2018 7:31 AM EDT 06/23/2018 8:53 AM EDT us Gabriele Maxwell PA-C LAB BLOOD ORDERABLES Zahira magaña Result [facility] [address] [place] [address] * (ABNORMAL) Lipid panel (06/23/2018 7:31 AM EDT) Cholesterol 186 0 - 199 mg/dL 06/23/2018 10:03 AM T [facility] Triglycerides 69 10 - 200 mg/dL 06/23/2018 10:03 AM T [facility] HDL 62.6 >=50.0 mg/dL 06/23/2018 10:03 AM T [facility] LDL Calculated 110(H) 0 - 100 mg/dL 06/23/2018 10:03 AM EDT [facility] Cardiac Risk Factor 3.0 0.0 - 4.4 06/23/2018 10:03 AM EDT [facility] Blood specimen (specimen) Venipuncture / Unknown 06/23/2018 7:31 AM EDT 06/23/2018 8:53 AM EDT Narrative [facility] - 06/23/2018 10:03 AM EDT Cardiac Risk Factor: Males Females 2x Average Risk 9.6 7.1 3x Average Risk 23.4 11.0 us Gabriele Maxwell PA-C LAB BLOOD ORDERABLES Zahira magaña Result [facility] [address] [place] [address] documented in this encounter Visit Diagnoses Diagnosis Encounter for other specified special examinations documented in this encounter Additional Health Concerns Infection Onset Date Last Indicated Resolved Time MRSA Comment:MRSA back abscess 12/15/20 CADE; 12/15/2020 12/15/2020 documented as of this encounter Care Teams Entry Level Management Relationship Specialty [place] [id number] PCP - General 06/05/17 08/15/18 System, [place], [id number] PCP - General 08/16/18 08/31/18 [place] [id number] PCP - General 09/01/18 09/11/18 [place] [id number] PCP - General 09/12/18 12/14/20 Bravo Carey MD [address] [place] [address] PCP - General Internal Medicine 12/15/20 documented as of this encounter
--- OUTSIDE RECORDS SUMMARY | 2025-04-19 07:54 | XMS_ITS | Patient Health Record ---
Author Organization [facility] Address [address] [place] [address] Care Team Providers Care Caterpillar Operator Name Role Phone RUIBravo Primary Care Provider Unavailabl e Allergies Allergen (clinical drug ingredient) Drug/Non Drug Allergy documented on EMR Reaction Allergy Type Onset Date Status simvastatin Simvastatin (uncoded) Unknown Allergy Active Reason For Referral No Information Medications Medication SIG (Take, Route, Frequency, Duration) Notes Start Date End Date Status Naratriptan HCl 2.5 MG 1 tablet Orally O nce a day; Duration: 1 day(s) Active Amphetamine Salt Combo 30 MG 1 tablet Or ally Twice a day Active QUEtiapine Fumarate 25 MG 1 tablet at be dtime Orally Once a day; Duration: 30 day(s) Active carBAMazepine 200 MG 1 tablet Orally Twi ce a day; Duration: 30 day(s) Active HumaLOG KwikPen 100 UNIT/ML [...] 100 MG 1 tablet Orally Once a day; Duration: 30 day(s) Active HumaLOG KwikPen 12-12-10 units ac.meal Active Lantus SoloStar 30 units at bedtime Active Problems Problem Type SNOMED Code ICD Code Onset Dates Problem Status W/U Status Risk Notes Problem Primary hypothyroidism (38600221) Primary hypothyroidism (E03.9) Active confirmed Problem Hyperglycemia due to type 2 diabetes mellitus (766337387176426) Controlled diabetes mellitus with hyperglycemia (E11.65) Active confirmed Problem Pure hypercholesterolemia (055456028) Pure hypercholesterolemia (E78.00) Active confirmed Problem Hyperglycemia due to type 2 diabetes mellitus (260544643287226) Uncontrolled type 2 diabetes mellitus with hyperglycemia (E11.65) Active confirmed Plan Of Treatment Future Test Test Name Order Date Creatinine([facility]) 01/22/2021 ALT (SGPT)([facility]) 01/22/2021 AST (SGOT)([facility]) 01/22/2021 Hemoglobin A1C([facility]) 01/22/2021 Insurance Providers Payer Name Payer Address Payer Phone Subscriber Number Group Number Insured Name Patient Relationship to Insured Coverage Start Date Coverage End Date [employer] [address] [place] [address] [phone] [id number] Amy Lee Self - patient is the insured 1 [facility] [address] [place] [phone] [id number] Amy Lee Self - patient is the insured 8 [employer] [address] [place] [address] [id number] Amy Lee Self - patient is the insured 1 Medical (General) History Surgical History Surgery Date(Month/Year)
--- OUTSIDE RECORDS SUMMARY | 2025-04-19 07:54 | XMS_ITS ---
Author Name [facility] Organization Unknown Care Team Organization Name Specialty Phone Email Start Date End Da [facility] NO PCP Primary Care 09/24/2022 09/24/2022
--- OUTSIDE RECORDS SUMMARY | 2025-04-19 07:54 | XMS_ITS | Encounter Summary ---
Author Organization [facility] Address [address] [place] [address] Care Team Providers Care Channeler Outsole Name Role Phone Pcp, No Primary Care Provider Unavailabl e System, Provider Not In MD Primary Care Provider Unavailable Pcp, No Primary Care Provider Unavailabl e Pcp, No Primary Care Provider Unavailabl e Bravo Carey MD Primary Care Provider [phone] Encounter Details Date Type Department Care Team (Late st Contact Info) Description 09/22/2017 Ancillary Orders [facility] [address] [place] [address] Carole Messer NP [address] [place] [address] Breast lump on right side at 4 [...] documented as of this encounter Care Teams Channeler Outsole Relationship Specialty Start [place] [id number] PCP - General 06/05/17 08/15/18 System, [place] InMD [address] PCP - General 08/16/18 08/31/18 [place] [id number] PCP - General 09/01/18 09/11/18 [place] [id number] PCP - General 09/12/18 12/14/20 Bravo Carey MD [address] [place] [address] PCP - General Internal Medicine 12/15/20 documented as of this encounter
--- OUTSIDE RECORDS SUMMARY | 2025-04-19 07:54 | XMS_ITS | Encounter Summary ---
Author Organization [facility] Address [address] [place] [address] Care Team Providers Care Smoke Room Operator Name Role Phone Pcp, No Primary Care Provider Unavailabl e System, Provider Not In MD Primary Care Provider Unavailable Pcp, No Primary Care Provider Unavailabl e Pcp, No Primary Care Provider Unavailabl e Bravo Carey MD Primary Care Provider Reason for Referral * Diagnostic Imaging (Routine) - Closed Specialty Diagnoses / Procedures Referred By Contac t Referred To Contact Radiology Diagnoses Breast mass, right Procedures Mammo post biopsy right Yolande Price MD PhD [address] [place] [address] Phone: tel: Referral ID Status Reason Start Date Expiration Date Visits Re quested Visits Authorized [id number] Closed 10/08/2017 10/08/2018 1 1 Encounter Details Date Type Department Care Team ([facility] st Contact Info) Description 10/08/2017 Ancillary Orders [facility] [address] [place] [address] Yolande Price MD PhD [address] [place] [address] Breast mass, right Social History Tobacco Use [...] documented as of this encounter Care Teams Smoke Room Operator Relationship Specialty Start [place] [id number] PCP - General 06/05/17 08/15/18 System, [place], [id number] PCP - General 08/16/18 08/31/18 [place] [id number] PCP - General 09/01/18 09/11/18 [place] [id number] PCP - General 09/12/18 12/14/20 Bravo Carey MD [address] [place] [address] PCP - General Internal Medicine 12/15/20 documented as of this encounter
--- OUTSIDE RECORDS SUMMARY | 2025-04-19 07:54 | XMS_ITS | Patient Health Record ---
Author Organization [facility] Address [address] [place] [address] Care Team Providers Care Warehouse Checker Name Role Phone KAYE DRAPER Unavailable [phone] Allergies Allergen (clinical drug ingredient) Drug/Non Drug Allergy documented on EMR Reaction Allergy Type Onset Date Status Substance with 3-mclihcj-1-methylgluta ryl-coenzyme A reductase inhibitor mechanism of action (substance) statins (uncoded) hives Allergy Active Reason For Referral No Information Medications Medication SIG (Take, Route, Frequency, Duration) Notes Start Date End Date Status Adderall Active buPROPion HCl Active Topiramate Active HumaLOG Active KlonoPIN Active Lantus Active Problems Problem Type SNOMED Code ICD Code Onset Dates Problem Status W/U Status Risk Notes Problem Diabetic hyperosmolar non-ketotic state (314815030) Diabetes with hyperosmolarity, type II or unspecified type, not stated as uncontrolled (250.20) Active confirmed Problem Hypothyroidism (79570401) Hypothyroidism, unspecified (E03.9) Active confirmed Problem Diabetes mellitus without complication (827511742) Other specified diabetes mellitus without complications (E13.9) Active confirmed Plan Of Treatment No Information Insurance Providers Payer Name Payer Address Payer Phone Subscriber Number Group Number Insured Name Patient Relationship to Insured Coverage Start Date Coverage End Date [facility] [address] [place], [place] [phone] [id number] Amy Lee Self - patient is the insured Medical (General) History Medical History History ICD Code diabetes I asthma thyroid disorder anxiety Surgical History Surgery Date(Month/Year) tonsils right breast biopsy Hospitalization History Reason Date(Month/Year) childbirth
--- OUTSIDE RECORDS SUMMARY | 2025-04-19 07:54 | XMS_ITS | Encounter Summary ---
Author Organization [facility] Address [address] [place] [address] Care Team Providers Care Lead Rider Name Role Phone Pcp, No Primary Care Provider Unavailabl e System, Provider Not In MD Primary Care Provider Unavailable Pcp, No Primary Care Provider Unavailabl e Pcp, No Primary Care Provider Unavailabl e Bravo Carey MD Primary Care Provider [phone] Reason for Referral * Diagnostic (Routine) - Closed Specialty Diagnoses / Procedures Referred By Contac t Referred To Contact Diagnoses Mass Procedures Ultrasound outside imaging Luis Abreu MD [address] [place] [address] Phone: tel: fax: Referral ID Status Reason Start Date Expiration Date Visits Re quested Visits Authorized [id number] Closed 09/22/2017 09/22/2018 1 1 * Diagnostic Imaging (Routine) - Closed Specialty Diagnoses / Procedures Referred By Contac t Referred To Contact Diagnoses Mass Procedures JORGE outside imaging Luis Abreu MD [address] [place] [address] Phone: tel: fax: Referral ID Status Reason Start Date Expiration Date Visits Re quested Visits Authorized [id number] Closed 09/22/2017 09/22/2018 1 1 * Diagnostic Imaging (Routine) - Closed Specialty Diagnoses / Procedures Referred By Contac t Referred To Contact Diagnoses Visit for screening Procedures JORGE outside imaging Luis Abreu MD [address] [place] [address] Phone: tel: fax: Referral ID Status Reason Start Date Expiration Date Visits Re quested Visits Authorized [id number] Closed 09/22/2017 09/22/2018 1 1 * Diagnostic (Routine) - Closed Specialty Diagnoses / Procedures Referred By Contac t Referred To Contact Diagnoses Mass Procedures Ultrasound outside imaging Luis Abreu MD [address] [place] [address] Phone: tel: fax: Referral ID Status Reason Start Date Expiration Date Visits Re quested Visits Authorized [id number] Closed 09/22/2017 09/22/2018 1 1 Encounter Details Date Type Department Care Team (Late st Contact Info) Description 09/22/2017 Ancillary Orders [address] [address] Luis Abreu MD [address] [place] [address] [place]; Visit for screening Social History Tobacco [...] contain a result. us Luis Abreu MD [facility] [place] ORDERABLES Final Res ult * JORGE outside imaging (09/22/2017 11:00 AM EST) Rafaela Calderon - 09/22/2017 11:00 AM EST This order has been auto-finalized and does not contain a result. Result [facility] Luis Abreu MD [facility] MAMMOGRAPHY ORDERABLES Final Result * JORGE outside imaging (09/22/2017 10:57 AM EST) Rafaela Calderon - 09/22/2017 10:57 AM EST This order has been auto-finalized and does not contain a result. Result [facility] Luis Abreu MD [facility] MAMMOGRAPHY ORDERABLES Final Result * Ultrasound outside imaging (09/22/2017 10:52 AM EST) Rafaela Calderon - 09/22/2017 10:52 AM EST This order has been auto-finalized and does not contain a result. Result [facility] Luis Abreu MD [facility] [place] ORDERABLES Final Res ult documented in this encounter Visit Diagnoses Diagnosis Mass Localized superficial swelling, mass, or lump Visit for screening documented in this encounter Additional Health Concerns Infection Onset Date Last Indicated Resolved Time MRSA Comment:MRSA back abscess 12/15/20 CADE; 12/15/2020 12/15/2020 documented as of this encounter Care Teams Lead Rider Relationship Specialty Start [place] [id number] PCP - General 06/05/17 08/15/18 System, [place], [id number] PCP - General 08/16/18 08/31/18 [place] [id number] PCP - General 09/01/18 09/11/18 [place] [id number] PCP - General 09/12/18 12/14/20 Bravo Carey MD [address] [place] [id number] PCP - General Internal Medicine 12/15/20 documented as of this encounter
--- OUTSIDE RECORDS SUMMARY | 2025-04-19 07:54 | XMS_ITS | Encounter Summary ---
Author Organization [facility] Address [address] [place] [address] Care Team Providers Care Customer Engineer Name Role Phone Bravo Carey MD Primary Care Provider [phone] Encounter Details Date Type Department Care Team (Late st Contact Info) Description 06/25/2022 Procedure Pass [address] [address] Social History Tobacco Use Types [...] documented as of this encounter Care Teams Customer Engineer Relationship Specialty Start Date End Date Bravo Carey MD [address] [place] [address] PCP - General Internal Medicine 12/15/20 documented as of this encounter
--- NOTE | 2025-04-19 08:09 | EMG_ITS ---
Chief complaint: Bilateral hand numbness Reason for referral: Evaluate for Carpal Tunnel Syndrome Referred by: Freddy LORENZO Procedure done: Bilateral upper extremities NCS/EMG Precautions and/or limitations: None The limb temperature was monitored continuously and remained between 32-36 degrees C during the performance of the NCS. Nerve Conduction Studies Anti Sensory Summary Table ?Stim Site NR Onset (ms) Norm Onset (ms) Peak (ms) Norm Peak (ms) O-P Amp (?V) Norm O-P Amp Site1 Site2 Delta-0 (ms) Dist (cm) Robert (m/s) Norm Robert (m/s) Left Median Anti Sensory (2nd Digit) Wrist ? 4.4 5.2 <3.6 11.0 >10 Wrist 2nd Digit 4.4 14.0 32 Right Median Anti Sensory (2nd Digit) Wrist NR <3.6 >10 Wrist 2nd Digit 14.0 Right Radial Anti Sensory (Thumb) Forearm ? 1.6 2.3 <3.1 25.2 Forearm Thumb 1.6 0.0 Left Ulnar Anti Sensory (5th Digit) Wrist ? 2.3 3.0 <3.7 15.9 >15.0 Wrist 5th Digit 2.3 14.0 61 Right Ulnar Anti Sensory (5th Digit) Wrist ? 1.5 3.1 <3.7 20.1 >15.0 Wrist 5th Digit 1.5 14.0 93 Motor Summary Table ?Stim Site NR Onset (ms) Norm Onset (ms) O-P Amp (mV) Norm O-P Amp iAmp (mV) Amp (1st) (%) Site1 Site2 Delta-0 (ms) Dist (cm) Robert (m/s) Norm Robert (m/s) Left Median Motor (Abd Poll Brev) Wrist ? 5.5 <3.9 6.1 >4.5 7.2 100.0 Elbow Wrist 3.6 18.0 50 >45 Elbow ? 9.1 5.9 6.9 96.7 Right Median Motor (Abd Poll Brev) Wrist ? 6.1 <3.9 7.3 >4.5 8.4 100.0 Elbow Wrist 3.5 17.0 49 >45 Elbow ? 9.6 6.5 7.8 89.0 Left Ulnar Motor (Abd Dig Minimi) Wrist ? 2.7 <3.0 7.9 >5 9.9 100.0 B Elbow Wrist 3.2 15.5 48 >45 B Elbow ? 5.9 7.8 10.1 98.7 A Elbow B Elbow 1.8 10.0 56 >45 A Elbow ? 7.7 7.7 10.3 97.5 Right Ulnar Motor (Abd Dig Minimi) Wrist ? 2.5 <3.0 9.8 >5 12.8 100.0 B Elbow Wrist 3.3 16.5 50 >45 B Elbow ? 5.8 9.4 12.8 95.9 A Elbow B Elbow 1.7 10.0 59 >45 A Elbow ? 7.5 8.9 12.3 90.8 EMG ?Side Muscle Nerve Root Ins Act Fibs Psw Amp Dur Poly Recrt Int Pat Comment Right 1stDorInt Ulnar C8-T1 Nml Nml Nml Nml Nml 0 Nml Complete Right FlexCarRad Median C6-7 Nml Nml Nml Nml Nml 0 Nml Complete Right Biceps Musculocut C5-6 Nml Nml Nml Nml Nml 0 Nml Complete Right Triceps Radial C6-7-8 Nml Nml Nml Nml Nml 0 Nml Complete Right Deltoid Axillary C5-6 Nml Nml Nml Nml Nml 0 Nml Complete Left 1stDorInt Ulnar C8-T1 Nml Nml Nml Nml Nml 0 Nml Complete Left FlexCarRad Median C6-7 Nml Nml Nml Nml Nml 0 Nml Complete Left Biceps Musculocut C5-6 Nml Nml Nml Nml Nml 0 Nml Complete Left Triceps Radial C6-7-8 Nml Nml Nml Nml Nml 0 Nml Complete Left Deltoid Axillary C5-6 Nml Nml Nml Nml Nml 0 Nml Complete FINDINGS: Bilateral median motor nerves showed prolonged distal latency, normal amplitude and normal conduction velocity. Right median sensory nerve showed absent response. Left median sensory nerve showed prolonged peak latency. All other nerves tested were within normal. Concentric needle EMG was performed in selected muscles of the bilateral upper extremities. Study did not reveal signs of electric abnormalities as shown in the table above. IMPRESSION: 1. This is an abnormal study. 2. There is electrodiagnostic evidence for bilateral moderate-severe median neuropathy at the wrist, consistent with carpal tunnel syndrome. 3. There is no electrodiagnostic evidence for ulnar neuropathy, brachial plexopathy, or cervical radiculopathy. Thank you for your kind referral. Breanna Walter MD, DALE Board Certified, [place] [employer] (ABPMR) Board Certified, [place] [employer] Electro[employer] (ABEM) CODIN [phone] x [phone] MTDD
== END 2025-04-19 07:52 | disposition home or self-care (01) ==
LOC: HO.NEURO 07:51
PROVIDERS: PCP Internal Medicine
DX: R20.0 Anesthesia of skin (principal); R20.2 Paresthesia of skin; R94.131 Abnormal electromyogram [EMG]
CPT/HCPCS: 95886; 95911

== ENCOUNTER → 2025-04-19 08:09 | Outpatient (BNV) | payer OTHER, SELFPAY | PROVIDERS: PCP Internal Medicine; Visit Provider Physical Medicine & Rehabilitation | DX: G56.03 Carpal tunnel syndrome, bilateral upper limbs (principal) | CPT/HCPCS: 95886; 95911 ==